=== PATIENT | male | born 1935 | race Caucasian/White ===

== ENCOUNTER 2019-09-06 13:36 | Observation (INO) | payer OTHER ==
[2019-09-06] MEDS ORDERED: ASPIRIN 81 MG CHEWABLE TABLET ONE (14:20)
[2019-09-06] MEDS ORDERED: NA CHLORIDE 0.9% 1,000 ML ONE (14:20)
[2019-09-06 14:47] LABS: Absolute Lymphocytes (CBC) 1.7 K/uL (0.7-4.9); Basophils % 1.1 % (0-1.3); Hematocrit 41.2 % (39.6-49.0); Lymphocytes % 25.4 % (15.3-44.8); MPV 8.5 fL (7.6-11.3); RBC Red Blood Cell Count 4.53 M/uL (4.33-5.43)
[2019-09-06 15:04] LABS: ALT/SGPT 22 U/L (12-78); AST/SGOT 21 U/L (15-37); Albumin 3.7 g/dL (3.4-5.0); Alkaline Phosphatase 91 U/L (45-117); BUN Blood Urea Nitrogen 21 mg/dL (7-18); Bicarbonate 26 mmol/L (21-32); Bilirubin Direct < 0.1 mg/dL (0-0.2); Bilirubin Total 0.2 mg/dL (0.2-1.0); Glucose Level 109 mg/dL (74-106); Lipase 108 U/L (73-393); Magnesium 2.2 mg/dL (1.8-2.4); NT PRO-BNP 160 pg/mL (<450); Protein, Total 7.9 g/dL (6.4-8.2); Sodium Level 142 mmol/L (136-145); Troponin (Emerg Dept Use Only) < 0.02 ng/mL (0.0-0.045)
--- NOTE | 2019-09-06 15:24 | RAD REPORT ---
EXAM DESCRIPTION: Ricardo Single View09/06/2019 2:47 pm CLINICAL HISTORY: Chest pain COMPARISON: May 2019 FINDINGS: The lungs appear clear of acute infiltrate. The heart is normal size IMPRESSION: No acute abnormalities displayed
--- NOTE | 2019-09-06 15:47 | ER ---
Nurse's Notes [facility] Name: Camron Fong Age: 83 yrs Sex: Male : 1935 Arrival Date: 09/06/2019 Time: 13:37 Bed 5 Private MD: Myles Sanches V Diagnosis: Chest pain, unspecified;Essential (primary) hypertension;Unspecified kidney failure-acute on chronic Presentation: 09/05 13:45 Chief complaint: Patient states: I have pressure under my L arm, on my L chest, and my ca1 fingers on my L arm got numb. It started about 30 minutes. Reports lightheadedness. Denies SOB. Denies cough. Denies injury to chest area or L arm. Denies hx of heart attack. Coronavirus screen: Proceed with normal triage. Patient denies a cough. Patient denies shortness of breath or difficulty breathing. Patient denies measured and/or subjective temperature greater than 100.4F prior to today's visit. Patient denies travel on a cruise ship or to a country the [facility] currently lists as an affected area. Patient denies contact with known and/or suspected case of COVID-19. Ebola Screen: Patient negative for fever greater than or equal to 101.5 degrees Fahrenheit, and additional compatible Ebola Virus Disease symptoms Patient denies exposure to infectious person. Patient denies travel to an Ebola-affected area in the 21 days before illness onset. No symptoms or risks identified at this time. Initial Sepsis Screen: Does the patient meet any 2 criteria? No. Patient's initial sepsis screen is negative. Does the patient have a suspected source of infection? No. Patient's initial sepsis screen is negative. Risk Assessment: Do you want to hurt yourself or someone else? Patient reports no desire to harm self or others. Onset of symptoms was September 06, 2019 at 13:00. 13:45 Method Of Arrival: Ambulatory ca1 13:45 Acuity: JESSICA 3 ca1 Triage Assessment: 13:45 General: Appears in no apparent distress. comfortable, Behavior is calm, cooperative, bp appropriate for age. Pain: Complains of pain in chest Pain radiates to left arm. EENT: No deficits noted. Neuro: No deficits noted. Cardiovascular: Rhythm is sinus rhythm. Respiratory: No deficits noted. GI: No signs and/or symptoms were reported involving the gastrointestinal system. : No signs and/or symptoms were reported regarding the genitourinary system. Derm: No deficits noted. Musculoskeletal: No deficits noted. Historical: - Allergies: 13:51 Stadol; ca1 13:51 Lyrica; ca1 13:51 Allopurinol; ca1 - Home Meds: 13:51 [place] Thyroid 90 mg oral tab [Active]; amlodipine 5 mg tab 1 tab once daily [Active]; ca1 losartan 100 mg oral tab 1 tab once daily [Active]; pravastatin 80 mg oral tab 1 tab once daily [Active]; Uloric 80 mg oral tab 1 tab once daily [Active]; hydralazine 25 mg Oral tab [Active]; - PMHx: 13:51 Hypertension; High Cholesterol; Thyroid problem; ca1 - PSHx: 13:51 None; ca1 - Immunization history:: Adult Immunizations up to date. - Social history:: Smoking status: Patient denies any tobacco usage or history of. Smoking status: . - Family history:: not pertinent. Screenin:00 Abuse screen: Denies threats or abuse. Denies injuries from another. Nutritional bp screening: No deficits noted. Tuberculosis screening: No symptoms or risk factors identified. Fall Risk None identified. Assessment: 13:45 General: SEE TRIAGE NOTE. bp 15:00 Reassessment: ALL CURRENT ORDERS COMPLETED, VS STABLE. bp 16:00 Reassessment: IVF INFUSING. ADMIT INITIATED BY . bp 16:51 Reassessment: BED ASSIGNED, ADMIT PENDING. bp 17:01 Reassessment: ADMIT COMPLETE, REPORT TO LEONEL LINDSEY. bp Vital Signs: 13:45 BP 170 / 100; Pulse 74; Resp 15 S; Temp 97.8(TE); Pulse Ox 98% on R/A; Weight 90.72 kg ca1 (R); Height 5 ft. 7 in. (170.18 cm) (R); Pain 2/10; 15:00 BP 151 / 72; Pulse 72; Resp 17; Pulse Ox 97% ; bp 16:00 BP 173 / 77; Pulse 69; Resp 17; Pulse Ox 98% ; bp 16:51 BP 168 / 59; Pulse 50; Resp 17; Pulse Ox 100% ; bp 13:45 Body Mass Index 31.32 (90.72 kg, 170.18 cm) ca1 ED Course: 13:37 Patient arrived in ED. ag5 13:38 Myles Sanches MD is Private Physician. ag5 13:48 Triage completed. ca1 13:51 Tiago Tucker MD is Attending Physician. [facility] 13:51 Arm band placed on right wrist. ca1 14:04 Isaiah Rivas, RN is Primary Nurse. bp 14:30 Inserted saline lock: 22 gauge in right upper arm, using aseptic technique. Blood bp collected. 14:47 XRAY Chest (1 view) In Process Unspecified. EDMS 15:00 Patient has correct armband on for positive identification. Bed in low position. Call bp light in reach. Side rails up X2. ekg monitor tech on. Pulse ox on. NIBP on. 15:45 Myles Sanches MD is Hospitalizing Provider. [facility] 17:02 No provider procedures requiring assistance completed. Patient admitted, IV remains in bp place. Patient maintains SpO2 saturation greater than 95% on room air. Administered Medications: 14:15 Drug: Aspirin Chewable Tablet 324 mg Route: PO; bp 16:07 Follow up: Response: No adverse reaction bp 14:30 Drug: NS 0.9% 1000 ml Route: IV; Rate: 75 ml/hr; Site: right upper arm; bp 17:03 Follow up: IV Status: Infusion continued upon admission bp 16:00 Drug: Lovenox 1 mg/kg Route: Sub-Q; Site: right lower abdomen; bp 17:03 Follow up: Response: No adverse reaction bp 16:00 Drug: Lopressor 25 mg Route: PO; bp 17:03 Follow up: Response: No adverse reaction bp Outcome: 15:47 Decision to Hospitalize by Provider. [facility] 17:02 Admitted to Med/surg accompanied by nurse, via wheelchair, room 207, with chart, Report bp called to LEONEL LINDSEY 17:02 Condition: stable 17:02 Instructed on the need for admit. 17:04 Patient left the ED. bp Signatures: Dispatcher [employer] EDIA Tiago Tucker MD MD cha Peltier, Brian, RN RN bp Nalini Rapp RN RN Renny Esteves ag5
--- NOTE | 2019-09-06 15:48 | EDPHYS ---
Physician Documentation [facility] Name: Camron Fong Age: 83 yrs Sex: Male : 1935 Arrival Date: 09/06/2019 Time: 13:37 Bed 5 Private MD: Myles Sanches V ED Physician Tiago Tucker HPI: 09/05 14:10 This 83 yrs old Male presents to ER via Ambulatory with complaints of Chest krystal Pressure, Chest Tightness. 14:10 The patient or guardian reports chest pain that is located primarily in the substernal krystal area. Onset: 1 hour(s) ago. The pain radiates to. Associated signs and symptoms: The patient has no apparent associated signs or symptoms. The chest pain is described as aching, a pressure. Modifying factors: The symptoms are alleviated by nothing. the symptoms are aggravated by nothing. Severity of pain: At its worst the pain was mild in the emergency department the pain is unchanged. The patient has not experienced similar symptoms in the past. Historical: - Allergies: 13:51 Stadol; ca1 13:51 Lyrica; ca1 13:51 Allopurinol; ca1 - Home Meds: 13:51 [place] Thyroid 90 mg oral tab [Active]; amlodipine 5 mg tab 1 tab once daily [Active]; ca1 losartan 100 mg oral tab 1 tab once daily [Active]; pravastatin 80 mg oral tab 1 tab once daily [Active]; Uloric 80 mg oral tab 1 tab once daily [Active]; hydralazine 25 mg Oral tab [Active]; - PMHx: 13:51 Hypertension; High Cholesterol; Thyroid problem; ca1 - PSHx: 13:51 None; ca1 - Immunization history:: Adult Immunizations up to date. - Social history:: Smoking status: Patient denies any tobacco usage or history of. Smoking status: . - Family history:: not pertinent. ROS: 14:11 Constitutional: Negative for fever, chills, and weight loss, Eyes: Negative for injury, krystal pain, redness, and discharge, ENT: Negative for injury, pain, and discharge, Neck: Negative for injury, pain, and swelling, Respiratory: Negative for shortness of breath, cough, wheezing, and pleuritic chest pain, Abdomen/GI: Negative for abdominal pain, nausea, vomiting, diarrhea, and constipation, Back: Negative for injury and pain, : Negative for injury, bleeding, discharge, and swelling, MS/Extremity: Negative for injury and deformity, Skin: Negative for injury, rash, and discoloration, Neuro: Negative for headache, weakness, numbness, tingling, and seizure, Psych: Negative for depression, anxiety, suicide ideation, homicidal ideation, and hallucinations, Allergy/Immunology: Negative for hives, rash, and allergies, Endocrine: Negative for neck swelling, polydipsia, polyuria, polyphagia, and marked weight changes, Hematologic/Lymphatic: Negative for swollen nodes, abnormal bleeding, and unusual bruising. 14:11 Cardiovascular: Positive for chest pain, palpitations. Exam: 14:11 Constitutional: This is a well developed, well nourished patient who is awake, alert, krystal and in no acute distress. Head/Face: Normocephalic, atraumatic. Eyes: Pupils equal round and reactive to light, extra-ocular motions intact. Lids and lashes normal. Conjunctiva and sclera are non-icteric and not injected. Cornea within normal limits. Periorbital areas with no swelling, redness, or edema. ENT: Nares patent. No nasal discharge, no septal abnormalities noted. Tympanic membranes are normal and external auditory canals are clear. Oropharynx with no redness, swelling, or masses, exudates, or evidence of obstruction, uvula midline. Mucous membranes moist. Neck: Trachea midline, no thyromegaly or masses palpated, and no cervical lymphadenopathy. Supple, full range of motion without nuchal rigidity, or vertebral point tenderness. No Meningismus. Chest/axilla: Normal chest wall appearance and motion. Nontender with no deformity. No lesions are appreciated. Cardiovascular: Regular rate and rhythm with a normal S1 and S2. No gallops, murmurs, or rubs. Normal PMI, no JVD. No pulse deficits. Respiratory: Lungs have equal breath sounds bilaterally, clear to auscultation and percussion. No rales, rhonchi or wheezes noted. No increased work of breathing, no retractions or nasal flaring. Abdomen/GI: Soft, non-tender, with normal bowel sounds. No distension or tympany. No guarding or rebound. No evidence of tenderness throughout. Back: No spinal tenderness. No costovertebral tenderness. Full range of motion. Male : Normal genitalia with no discharge or lesions. Skin: Warm, dry with normal turgor. Normal color with no rashes, no lesions, and no evidence of cellulitis. MS/ Extremity: Pulses equal, no cyanosis. Neurovascular intact. Full, normal range of motion. Neuro: Awake and alert, GCS 15, oriented to person, place, time, and situation. Cranial nerves II-XII grossly intact. Motor strength 5/5 in all extremities. Sensory grossly intact. Cerebellar exam normal. Normal gait. Psych: Awake, alert, with orientation to person, place and time. Behavior, mood, and affect are within normal limits. 14:11 ECG was reviewed by the Attending Physician. Vital Signs: 13:45 BP 170 / 100; Pulse 74; Resp 15 S; Temp 97.8(TE); Pulse Ox 98% on R/A; Weight 90.72 kg ca1 (R); Height 5 ft. 7 in. (170.18 cm) (R); Pain 2/10; 15:00 BP 151 / 72; Pulse 72; Resp 17; Pulse Ox 97% ; bp 16:00 BP 173 / 77; Pulse 69; Resp 17; Pulse Ox 98% ; bp 16:51 BP 168 / 59; Pulse 50; Resp 17; Pulse Ox 100% ; bp 13:45 Body Mass Index 31.32 (90.72 kg, 170.18 cm) ca1 MDM: 13:51 Patient medically screened. [facility] 14:12 Data reviewed: vital signs, nurses notes, lab test result(s), EKG, radiologic studies, krystal plain films. 09/05 13:56 Order name: Basic Metabolic Panel; Complete Time: 15:42 [facility] 09/05 13:56 Order name: CBC with Diff; Complete Time: 15:48 [facility] 09/05 13:56 Order name: LFT's; Complete Time: 15:42 [facility] 09/05 13:56 Order name: Magnesium; Complete Time: 15:42 [facility] 09/05 13:56 Order name: NT PRO-BNP; Complete Time: 15:42 [facility] 09/05 13:56 Order name: Troponin (emerg Dept Use Only); Complete Time: 15:42 [facility] 09/05 13:56 Order name: XRAY Chest (1 view); Complete Time: 15:42 [facility] 09/05 13:56 Order name: Lipase; Complete Time: 15:42 [facility] 09/05 16:28 Order name: Urine Dipstick--Ancillary (enter results) 09/05 16:34 Order name: Urine Dipstick-Ancillary EDSD 09/05 13:56 Order name: EKG; Complete Time: 13:57 [facility] 09/05 13:56 Order name: Cardiac monitoring; Complete Time: 14:08 [facility] 09/05 13:56 Order name: EKG - Nurse/Tech; Complete Time: 14:07 [facility] 09/05 13:56 Order name: IV Saline Lock; Complete Time: 14:34 [facility] 09/05 13:56 Order name: Labs collected and sent; Complete Time: 14:34 [facility] 09/05 13:56 Order name: O2 Per Protocol; Complete Time: 14:06 [facility] 09/05 13:56 Order name: O2 Sat Monitoring; Complete Time: 14:06 [facility] 09/05 15:54 Order name: CONS Physician Consult EDMS EC:11 Rate is 72 beats/min. Rhythm is regular. QRS [place] is Normal. NC interval is prolonged. [facility] QRS interval is normal. QT interval is normal. No Q waves. T waves are Normal. No ST changes noted. Clinical impression: NSR w/ Non-specific ST/T Changes and No evidence of ischemia. Interpreted by me. Reviewed by me. Administered Medications: 14:15 Drug: Aspirin Chewable Tablet 324 mg Route: PO; bp 16:07 Follow up: Response: No adverse reaction bp 14:30 Drug: NS 0.9% 1000 ml Route: IV; Rate: 75 ml/hr; Site: right upper arm; bp 17:03 Follow up: IV Status: Infusion continued upon admission bp 16:00 Drug: Lovenox 1 mg/kg Route: Sub-Q; Site: right lower abdomen; bp 17:03 Follow up: Response: No adverse reaction bp 16:00 Drug: Lopressor 25 mg Route: PO; bp 17:03 Follow up: Response: No adverse reaction bp Disposition: 09/06/19 15:47 Hospitalization ordered by Myles Sanches for Observation. Preliminary diagnosis are Chest pain, unspecified, Essential (primary) hypertension, Unspecified kidney failure - acute on chronic. - Bed requested for Telemetry/MedSurg (observation). - Status is Observation. bp - Condition is Fair. - Problem is new. - Symptoms have improved. Signatures: Dispatcher [employer] EDMS Tiago Tucker MD MD cha Peltier, Brian, RN RN bp Brooke Miles eb Nalini Rapp, RN RN ca1 Corrections: (The following items were deleted from the chart) 16:17 15:47 Hospitalization Ordered by Myles Sanches MD for Observation. Preliminary diagnosis krystal is Chest pain, unspecified; Essential (primary) hypertension. Bed requested for Telemetry/MedSurg (observation). Status is Observation. Condition is Fair. Problem is new. Symptoms have improved. krystal 16:28 16:17 09/06/2019 15:47 Hospitalization Ordered by Myles Sanches MD for Observation. eb Preliminary diagnosis is Chest pain, unspecified; Essential (primary) hypertension; Unspecified kidney failure - acute on chronic. Bed requested for Telemetry/MedSurg (observation). Status is Observation. Condition is Fair. Problem is new. Symptoms have improved. krystal 17:04 16:28 09/06/2019 15:47 Hospitalization Ordered by Myles Sanches MD for Observation. bp Preliminary diagnosis is Chest pain, unspecified; Essential (primary) hypertension; Unspecified kidney failure - acute on chronic. Bed requested for Telemetry/MedSurg (observation). Status is Observation. Condition is Fair. Problem is new. Symptoms have improved. eb
[2019-09-06] MEDS ORDERED: METOPROLOL TAR 25 MG TAB ONE (16:08)
[2019-09-06] MEDS ORDERED: ENOXAPARIN 100 MG/ML SYR SQ ONE (16:08)
[2019-09-06 16:33] LABS: Urine Blood NEGATIVE (NEG); Urine Glucose NEGATIVE (NEG); Urine Protein NEGATIVE (NEG); Urine Specific Gravity 1.015 (1.005-1.030)
[2019-09-06] MEDS ORDERED: ONDANSETRON 4 MG/2 ML VIAL IV PRN (17:15)
[2019-09-06 17:32] VITALS: BMI 31.2
[2019-09-06] MEDS ORDERED: ACETAMINOPHEN 325 MG TABLET PO PRN (17:33)
[2019-09-06] MEDS ORDERED: MORPHINE 2 MG/ML SYR IV PRN (17:46)
[2019-09-06 17:49] VITALS: BP 179/89; TEMP 97.7
[2019-09-06] MEDS ORDERED: METOPROLOL TAR 25 MG TAB PO SCH (18:00)
--- NOTE | 2019-09-06 18:13 | EKG ---
Test Date: 2019-09-06 Test Time: 14:08:19 [employer] Secretary: GAMA MEASUREMENT RESULTS: Intervals: Rate: 72 WA: 214 QRSD: 96 QT: 400 QTc: 438 [place]: P: 84 WA: 214 QRS: 61 T: 80 INTERPRETIVE STATEMENTS: Sinus rhythm with 1st degree AV block Otherwise normal ECG Compared to ECG 08/17/1994 06:32:00 First degree AV block now present T-wave abnormality no longer present Electronically Signed On 09-06-19 18:12:22 CDT by Mendez Jung
[2019-09-06 18:41] VITALS: O2SAT 95
[2019-09-06] MEDS ORDERED: ENOXAPARIN 80 MG/0.8 ML SQ SCH (21:00)
[2019-09-06] MEDS ORDERED: ATORVASTATIN 10 MG TAB PO SCH (21:00)
[2019-09-06] MEDS ORDERED: LOSARTAN POTASSIUM 50 MG TABLET PO SCH (21:00)
[2019-09-06] MEDS ORDERED: FAMOTIDINE 20 MG/2 ML VIAL IV SCH (21:00)
--- NOTE | 2019-09-06 21:35 | P.SSS ---
Patient History Date of Service: 09/06/19 Reason for admission: L ARM PAIN AND TINGLIING History of Present Illness: MR. ALEX IS 83 YEARS OLD GM WITH HTN, GOUT AND HIGH CHOLESTEROL. HE COMES WITH L ARM PAIN AND TINGLING. HE HAS NO CHEST PAIN, NAUSEA, DIAPHORESIS ETC. HE IS PAINFREE NOW AFTER [address] BARAJAS CAME AND DISCHARGED HIM STORY IS WEAK AND HE IS STABLE FOR OUTPATIENT STUDY. I AGREE. I CALLED HIM TALKED TO HIM AND ANTHONY SEEMS VERY COMFORTABLE FOR DISHARGE. HE IS AGREEABLE TO TELEVISIT WITH ME SO HE CAN GO HOME. Allergies allopurinol Allergy (Verified 04/17/17 10:44) Nausea/Vomiting butorphanol [From Stadol] Allergy (Verified 04/17/17 10:44) Shortness of breath pregabalin [From Lyrica] Allergy (Verified 04/17/17 10:44) Hives/Rash Beta-Blockers (Beta-Adrenergic Bloc Adverse Reaction (Verified 09/06/19 17:15) Nausea/Vomiting levothyroxine sodium [From Synthroid] Adverse Reaction (Verified 04/17/17 10:44) Nausea/Vomiting Irmzhjd-Pjl-Fka Reductase Inhibitor Adverse Reaction (Verified 04/17/17 10:44) Nausea/Vomiting zolpidem [From Ambien] Adverse Reaction (Verified 04/17/17 10:44) Nausea/Vomiting Home Medications: Amlodipine [Norvasc*] 5 mg PO DAILY AFTER SUPPER 07/10/15 Febuxostat [Uloric] 80 mg PO DAILY 07/10/15 Pravastatin [Pravachol*] 80 mg PO DAILY 07/10/15 Thyroid Tab [[place] Thyroid*] 90 mg PO IGFOD2QQ 07/10/15 carisoprodoL [Soma*] 350 mg PO BEDTIME 07/10/15 Losartan/Hydrochlorothiazide [Hyzaar 50-12.5 Tablet] 2 each PO DAILY #60 tablet 07/11/15 Hydralazine HCl 25 mg PO BID 04/14/17 Aspirin [[place] Chewable Aspirin] 81 mg PO DAILY 30 Days #30 tab.chew 09/06/19 - Past Medical/Surgical History Has patient received pneumonia vaccine in the past: Yes Diabetic: No -: HTN -: hyperlipidema -: nerve problems in groin from [place] -: hypothyroidism -: gout -: rt knee surg - Family History Mother -: Cancer Father History Unknown: Yes - Social History Smoking Status: Former smoker Alcohol use: No CD- Drugs: No Caffeine use: Yes Place of Residence: Home Review of Systems 10-point ROS is otherwise unremarkable Physical Examination - Vital Signs Temperature: 97.7 F Blood Pressure: 179/89 Pulse: 45 Respirations: 18 Pulse Ox (%): 96 - Physical Exam General: In no apparent distress, Obese Neck: Supple Respiratory: Clear to auscultation bilaterally (PER NURSE) Cardiovascular: Normal S1 S2 (PER NURSE AND TELEM.) Musculoskeletal: No tenderness Integumentary: No rashes Neurological: Normal speech, Normal strength at 5/5 x4 extr Lymphatics: No axilla or inguinal lymphadenopathy - Studies Laboratory Data (last 24 hrs) 09/06/19 14:30: WBC 6.6, Hgb 13.7, Hct 41.2, Plt Count 245 09/06/19 14:30: Sodium 142, Potassium 4.0, BUN 21 H, Creatinine 1.14, Glucose 109 H, Magnesium 2.2, Total Bilirubin 0.2, AST 21, ALT 22, Alkaline Phosphatase 91, Lipase 108 - Diagnosis (Problem(s)) (1) Cervical radiculopathy Status: Acute Plan: MOST LIKELY REASON. HE HAS BEEN TO [facility] AND DID WELL WITH HIS THERAPY. REMOTE POSSIBLITIY THAT HE MAY HAVE ANGINA. HE WILL GET ST TEST DONE. HE HAD A STRESS TEST ABOUT A YEAR AGO THAT WAS NEGATIVE. (2) Coronary artery disease Onset Date: 07/10/15 Status: Acute - Disposition Disposition: ROUTINE DISCHARGE Condition: FAIR
[2019-09-07] MEDS ORDERED: AMLODIPINE 5 MG TAB PO SCH (09:00)
[2019-09-07] MEDS ORDERED: ASPIRIN EC 81 MG TAB PO SCH (09:00)
--- NOTE | 2019-09-07 11:24 | EKG ---
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
--- NOTE | 2019-09-07 11:45 | CON ---
Date of Consultation: 09/06/2019 Reason For Consultation: Chest pain. History Of Present Illness: Mr. Fong is an 83-year-old white male. He is known to me from previ ous office visits. He had a negative cardiac workup approximately a year ago. He does have a histor y of hypertension, dyslipidemia, and hypothyroidism. He came in with pain in his chest, mostly in th e left lateral chest underneath his axilla. Pain has persisted for approximately 2-3 days. It is no nradiating. Has no nausea, vomiting, diaphoresis, PND, orthopnea, pedal edema, palpitations, or sync ope. The pain was not exertional. It was not related to food, body position, or time of the day. H apurva denied any fever or chills or cough. He notes that he has had some spine problems and he sees a iropractor on a regular basis. By the time I saw him, he has already ruled out for an GA. He had no rmal troponin. His EKG was unremarkable. Past Medical History: As stated above. Allergies: BETA-BLOCKERS, ALLOPURINOL, AND GABAPENTIN. Medications: Hyzaar, Norvasc, hydralazine, Soma, pravastatin, and Synthroid. Review of Systems: Negative. Social History: Negative. Family History: Noncontributory. Physical Examination: General: He appeared much younger than his stated age. No acute distress. Vital Signs: Stable, afebrile. HEENT: Negative. Neck: Supple without any bruit, lymphadenopathy, JVD, or thyromegaly. Chest: Clear to auscultation and percussion. Cardiac: Revealed a regular rhythm and rate. No murmurs, gallops, or rubs. Abdomen: Benign. Extremities: Revealed no clubbing, cyanosis, or edema. Diagnostic Data: Unremarkable. Impression And Plan: 1.Atypical chest pain. I think this is most likely related to cervical or thoracic spinal stenosis. It could be musculoskeletal. I do not think this is acute coronary syndrome. I am comfortable wit h Mr. Fong going home and I will see him in the office in the next couple of weeks. The case was discussed with Dr. Sanches. 2.Hypertension, well controlled. 3.Dyslipidemia, well controlled. 4.Hypothyroidism. NB/MODL Voice ID: [id number] Report ID: [id number]
== END 2019-09-06 20:37 | disposition home or self-care (01) ==
LOC: ER 13:36 → ERHOLD 15:50 → 2ND 17:04
PROVIDERS: ADMIT Internal Medicine; ATTEND Internal Medicine
DX: M54.12 Radiculopathy, cervical region (principal); R07.89 Other chest pain; I25.10 Atherosclerotic heart disease of native coronary artery without angina pectoris; I10 Essential (primary) hypertension; E78.00 Pure hypercholesterolemia, unspecified; M10.9 Gout, unspecified; E78.5 Hyperlipidemia, unspecified; E03.9 Hypothyroidism, unspecified; R00.1 Bradycardia, unspecified; I44.0 Atrioventricular block, first degree; R94.31 Abnormal electrocardiogram [ECG] [EKG]; Z79.899 Other long term (current) drug therapy
CPT/HCPCS: 96361; 93005 ×2; 85025; 80048; 36415; 83735; 80076; 81003; 84484; 83690; 83880; 71045; 96360; 96372; 99285; J1650; J7030; G0378 ×2

== ENCOUNTER 2019-09-07 02:20 | Emergency (ER) | payer OTHER ==
[2019-09-07 03:49] LABS: Absolute Lymphocytes (CBC) 1.4 K/uL (0.7-4.9); Basophils % 0.9 % (0-1.3); Hematocrit 41.6 % (39.6-49.0); Lymphocytes % 18.4 % (15.3-44.8); MPV 8.6 fL (7.6-11.3); RBC Red Blood Cell Count 4.61 M/uL (4.33-5.43)
[2019-09-07 03:50] LABS: Protime INR 0.97
[2019-09-07 04:10] LABS: ALT/SGPT 23 U/L (12-78); AST/SGOT 21 U/L (15-37); Albumin 3.7 g/dL (3.4-5.0); Alkaline Phosphatase 76 U/L (45-117); BUN Blood Urea Nitrogen 19 mg/dL (7-18); Bicarbonate 29 mmol/L (21-32); Bilirubin Direct 0.1 mg/dL (0-0.2); Bilirubin Total 0.4 mg/dL (0.2-1.0); Glucose Level 93 mg/dL (74-106); Magnesium 2.2 mg/dL (1.8-2.4); NT PRO-BNP 259 pg/mL (<450); Potassium 4.2 mmol/L (3.5-5.1); Protein, Total 7.9 g/dL (6.4-8.2); Sodium Level 140 mmol/L (136-145); Troponin (Emerg Dept Use Only) < 0.02 ng/mL (0.0-0.045)
--- NOTE | 2019-09-07 05:29 | ER ---
Nurse's Notes [facility] Name: Camron Fong Age: 83 yrs Sex: Male : 1935 Arrival Date: 09/07/2019 Time: 02:21 Bed 16 Private MD: Diagnosis: Hypertension;Bradycardia-Asymptomatic Presentation: 09/06 02:43 Chief complaint: Patient states: Was in the hospital yesterday and discharge home with ao medication. Patient was given Beta chance and now C/O low HR and high BP. 02:44 Coronavirus screen: Proceed with normal triage. Ebola Screen: Patient negative for ao fever greater than or equal to 101.5 degrees Fahrenheit, and additional compatible Ebola Virus Disease symptoms Patient denies exposure to infectious person. Patient denies travel to an Ebola-affected area in the 21 days before illness onset. Initial Sepsis Screen: Does the patient meet any 2 criteria? No. Patient's initial sepsis screen is negative. Does the patient have a suspected source of infection? No. Patient's initial sepsis screen is negative. Risk Assessment: Do you want to hurt yourself or someone else? Patient reports no desire to harm self or others. Onset of symptoms is unknown. 02:44 Acuity: JESSICA 3 ao 02:44 Method Of Arrival: Ambulatory ao Historical: - Allergies: 04:23 Allopurinol; ao 04:23 Lyrica; ao 04:23 Stadol; ao - Home Meds: 04:23 amlodipine 5 mg tab 1 tab once daily [Active]; [place] Thyroid 90 mg Oral tab [Active]; ao hydralazine 25 mg Oral tab [Active]; losartan 100 mg Oral tab 1 tab once daily [Active]; pravastatin 80 mg Oral tab 1 tab once daily [Active]; Uloric 80 mg Oral tab 1 tab once daily [Active]; - PMHx: 04:23 High Cholesterol; Hypertension; Thyroid problem; ao - PSHx: 04:23 None; ao - Immunization history:: Adult Immunizations up to date. - Social history:: Smoking status: Patient/guardian denies using tobacco. Screenin:26 Abuse screen: Denies threats or abuse. Denies injuries from another. Nutritional ao screening: No deficits noted. Tuberculosis screening: No symptoms or risk factors identified. Fall Risk None identified. Assessment: 03:15 General: Appears in no apparent distress. comfortable, slender, well groomed, well ao developed, well nourished, Behavior is calm, cooperative, appropriate for age. Pain: Denies pain. Pain does not radiate. Pain began suddenly. Neuro: Level of Consciousness is awake, alert, obeys commands, Oriented to person, place, time, situation, Appropriate for age Moves all extremities. Full function Speech is normal, Facial symmetry appears normal. Cardiovascular: Capillary refill < 3 seconds Patient's skin is warm and dry. Cardiovascular: Reports since Low HR and High BP. Respiratory: Airway is patent Respiratory effort is even, unlabored, Respiratory pattern is regular, symmetrical. GI: Abdomen is non-distended. : No signs and/or symptoms were reported regarding the genitourinary system. EENT: No signs and/or symptoms were reported regarding the EENT system. Derm: Skin is intact, Skin is pink, warm \T\ dry. Skin temperature is warm. 05:54 Reassessment: DC instructions given to patient. Patient agree with POC and to follow up ao with PCP and cardio. Patient and had no questions. Vital Signs: 02:43 BP 169 / 70; Pulse 46; Resp 16; Temp 98.2(TE); Pulse Ox 97% on R/A; Weight 88.9 kg (R); ao Height 5 ft. 4 in. (162.56 cm) (R); Pain 0/10; 04:18 BP 151 / 65; Pulse 47; Resp 16; Pulse Ox 98% on R/A; ao 05:54 BP 146 / 62; Pulse 51; Resp 16; Temp 98.2; Pulse Ox 99% on R/A; Pain 0/10; ao 02:43 Body Mass Index 33.64 (88.90 kg, 162.56 cm) ao ED Course: 02:21 Patient arrived in ED. ds1 02:38 Anurag Rice MD is Attending Physician. mh7 02:39 Chuy Hall, ROSALIA is Primary Nurse. ao 02:45 Triage completed. ao 03:21 XRAY Chest (1 view) In Process Unspecified. EDMS 03:55 Inserted saline lock: 20 gauge in left antecubital area, using aseptic technique. Blood ao collected. 04:26 Patient maintains SpO2 saturation greater than 95% on room air. ao 04:26 Arm band placed on right wrist. ao 04:26 Patient has correct armband on for positive identification. ekg monitor tech on. Pulse ao ox on. NIBP on. 05:53 No provider procedures requiring assistance completed. IV discontinued, intact, ao bleeding controlled, No redness/swelling at site. Pressure dressing applied. Administered Medications: No medications were administered Outcome: 05:29 Discharge ordered by . mh7 05:53 Discharged to home ambulatory. ao 05:53 Condition: stable 05:53 Discharge instructions given to patient, reinsurance analyst, Instructed on discharge instructions, follow up and referral plans. Demonstrated understanding of instructions, follow-up care, medications. 05:55 Patient left the ED. ao Signatures: Dispatcher [employer] EDAL Hailey Gong ds1 Chuy Hall, ROSALIA RN Anurag Betancourt MD MD mh7
--- NOTE | 2019-09-07 05:29 | EDPHYS ---
Physician Documentation [facility] Name: Camron Fong Age: 83 yrs Sex: Male : 1935 Arrival Date: 09/07/2019 Time: 02:21 Bed 16 Private MD: ED Physician Anurag Rice HPI: 09/06 03:40 This 83 yrs old Male presents to ER via Ambulatory with complaints of mh7 Irregular Pulse, High Blood Pressure. 03:40 The patient has elevated blood pressure and discovered this at home, with a home mh7 device. Onset: The symptoms/episode began/occurred today. Modifying factors: The symptoms are aggravated by nothing, The symptoms are alleviated by nothing. Associated signs and symptoms: Pertinent negatives: chest pain, dizziness, dyspnea, headache, lightheadedness, nausea, visual changes, vomiting, weakness. Severity of symptoms: At its worst the blood pressure was 200 mm Hg, in the emergency department the blood pressure is improved, markedly. The patient has been recently been admitted at [facility], was discharged yesterday. Historical: - Allergies: 04:23 Allopurinol; ao 04:23 Lyrica; ao 04:23 Stadol; ao - Home Meds: 04:23 amlodipine 5 mg tab 1 tab once daily [Active]; [place] Thyroid 90 mg Oral tab [Active]; ao hydralazine 25 mg Oral tab [Active]; losartan 100 mg Oral tab 1 tab once daily [Active]; pravastatin 80 mg Oral tab 1 tab once daily [Active]; Uloric 80 mg Oral tab 1 tab once daily [Active]; - PMHx: 04:23 High Cholesterol; Hypertension; Thyroid problem; ao - PSHx: 04:23 None; ao - Immunization history:: Adult Immunizations up to date. - Social history:: Smoking status: Patient/guardian denies using tobacco. ROS: 03:40 Constitutional: Negative for fever, chills, and weight loss, Eyes: Negative for injury, mh7 pain, redness, and discharge, ENT: Negative for injury, pain, and discharge, Neck: Negative for injury, pain, and swelling, Cardiovascular: Negative for chest pain, palpitations, and edema, Respiratory: Negative for shortness of breath, cough, wheezing, and pleuritic chest pain, Abdomen/GI: Negative for abdominal pain, nausea, vomiting, diarrhea, and constipation, Back: Negative for injury and pain, : Negative for injury, bleeding, discharge, and swelling, MS/Extremity: Negative for injury and deformity, Skin: Negative for injury, rash, and discoloration, Neuro: Negative for headache, weakness, numbness, tingling, and seizure, Psych: Negative for depression, anxiety, suicide ideation, homicidal ideation, and hallucinations, Allergy/Immunology: Negative for hives, rash, and allergies, Endocrine: Negative for neck swelling, polydipsia, polyuria, polyphagia, and marked weight changes, Hematologic/Lymphatic: Negative for swollen nodes, abnormal bleeding, and unusual bruising. Exam: 03:40 Constitutional: This is a well developed, well nourished patient who is awake, alert, mh7 and in no acute distress. Head/Face: Normocephalic, atraumatic. Eyes: Pupils equal round and reactive to light, extra-ocular motions intact. Lids and lashes normal. Conjunctiva and sclera are non-icteric and not injected. Cornea within normal limits. Periorbital areas with no swelling, redness, or edema. ENT: Nares patent. No nasal discharge, no septal abnormalities noted. Tympanic membranes are normal and external auditory canals are clear. Oropharynx with no redness, swelling, or masses, exudates, or evidence of obstruction, uvula midline. Mucous membranes moist. Neck: Trachea midline, no thyromegaly or masses palpated, and no cervical lymphadenopathy. Supple, full range of motion without nuchal rigidity, or vertebral point tenderness. No Meningismus. Chest/axilla: Normal chest wall appearance and motion. Nontender with no deformity. No lesions are appreciated. Cardiovascular: Regular rate and rhythm with a normal S1 and S2. No gallops, murmurs, or rubs. Normal PMI, no JVD. No pulse deficits. Respiratory: Lungs have equal breath sounds bilaterally, clear to auscultation and percussion. No rales, rhonchi or wheezes noted. No increased work of breathing, no retractions or nasal flaring. Abdomen/GI: Soft, non-tender, with normal bowel sounds. No distension or tympany. No guarding or rebound. No evidence of tenderness throughout. Back: No spinal tenderness. No costovertebral tenderness. Full range of motion. Skin: Warm, dry with normal turgor. Normal color with no rashes, no lesions, and no evidence of cellulitis. MS/ Extremity: Pulses equal, no cyanosis. Neurovascular intact. Full, normal range of motion. Neuro: Awake and alert, GCS 15, oriented to person, place, time, and situation. Cranial nerves II-XII grossly intact. Motor strength 5/5 in all extremities. Sensory grossly intact. Cerebellar exam normal. Normal gait. Psych: Awake, alert, with orientation to person, place and time. Behavior, mood, and affect are within normal limits. 06:12 ECG was reviewed by the Attending Physician. [facility] Vital Signs: 02:43 BP 169 / 70; Pulse 46; Resp 16; Temp 98.2(TE); Pulse Ox 97% on R/A; Weight 88.9 kg (R); ao Height 5 ft. 4 in. (162.56 cm) (R); Pain 0/10; 04:18 BP 151 / 65; Pulse 47; Resp 16; Pulse Ox 98% on R/A; ao 05:54 BP 146 / 62; Pulse 51; Resp 16; Temp 98.2; Pulse Ox 99% on R/A; Pain 0/10; ao 02:43 Body Mass Index 33.64 (88.90 kg, 162.56 cm) ao MDM: 03:07 Patient medically screened. [facility] 05:27 Differential diagnosis: hypertensive crisis, Malignant HTN, Bradycardia. Data reviewed: [facility] vital signs, nurses notes, old medical records, lab test result(s), cardiac enzymes, CBC, electrolytes, urinalysis, EKG, radiologic studies, plain films. Data interpreted: Pulse oximetry: on room air is 98 %. Interpretation: normal. Counseling: I had a detailed discussion with the patient and/or guardian regarding: the historical points, exam findings, and any diagnostic results supporting the discharge/admit diagnosis, the presence of at least one elevated blood pressure reading (>120/80) during this emergency department visit, lab results, radiology results, the need for outpatient follow up, to return to the emergency department if symptoms worsen or persist or if there are any questions or concerns that arise at home. Response to treatment: the patient's symptoms have markedly improved after treatment. 06:12 ED course: Well appearing, NAD, VSS, no focal neurological deficits. No chest pain, mh7 SOB, nausea, vomiting, dizziness, or other complaints. Discussed all test results and findings with the patient answered all of his questions. He requested to be discharged from the ED. He will follow up with his doctor but agreed to return to the ED if worsening of symptoms or other concerns.. 09/06 03:09 Order name: Basic Metabolic Panel; Complete Time: 04:16 09/06 03:09 Order name: CBC with Diff; Complete Time: 04:16 09/06 03:09 Order name: LFT's; Complete Time: 04:16 09/06 03:09 Order name: Magnesium; Complete Time: 04:16 09/06 03:09 Order name: NT PRO-BNP; Complete Time: 04:16 09/06 03:09 Order name: PT-INR; Complete Time: 04:16 09/06 03:09 Order name: Troponin (emerg Dept Use Only); Complete Time: 04:16 09/06 03:09 Order name: XRAY Chest (1 view) 09/06 03:09 Order name: EKG; Complete Time: 03:09 09/06 03:09 Order name: Cardiac monitoring; Complete Time: 04:18 09/06 03:09 Order name: EKG - Nurse/Tech; Complete Time: 04:18 09/06 03:09 Order name: IV Saline Lock; Complete Time: 04:18 09/06 03:09 Order name: Labs collected and sent; Complete Time: 04:18 09/06 03:09 Order name: O2 Per Protocol; Complete Time: 04:18 09/06 03:09 Order name: O2 Sat Monitoring; Complete Time: 04:18 EC:12 Rate is 45 beats/min. Rhythm is regular, Sinus bradycardia. QRS Basco is Normal. CT mh7 interval is normal. QRS interval is normal. QT interval is normal. No Q waves. T waves are Normal. No ST changes noted. Clinical impression: Sinus bradycardia. Administered Medications: No medications were administered Disposition: 09/07/19 05:29 Discharged to Home. Impression: Hypertension, Bradycardia-Asymptomatic. - Condition is Stable. - Discharge Instructions: Bradycardia, Adult, Hypertension, [id number]. - Medication Reconciliation Form, Thank You Letter, Antibiotic Education, Prescription Opioid Use form. - Follow up: Private Physician; When: 1 - 2 days; Reason: Worsening of condition, Recheck today's complaints, Re-evaluation by your physician. - Problem is an ongoing problem. - Symptoms have improved. Signatures: Dispatcher [employer] Chuy Medel RN RN ao Holmes, Maurice, MD MD mh7 Corrections: (The following items were deleted from the chart) 05:55 05:29 09/07/2019 05:29 Discharged to Home. Impression: Hypertension; ao Bradycardia-Asymptomatic. Condition is Stable. Forms are Medication Reconciliation Form, Thank You Letter, Antibiotic Education, Prescription Opioid Use. Follow up: Private Physician; When: 1 - 2 days; Reason: Worsening of condition, Recheck today's complaints, Re-evaluation by your physician. Problem is an ongoing problem. Symptoms have improved. mh7
[2019-09-07 06:05] VITALS: TEMP 98.2
[2019-09-07 06:08] VITALS: BP 146/62; O2SAT 99
--- NOTE | 2019-09-07 11:07 | RAD REPORT ---
EXAM DESCRIPTION: RAD - Chest Single View - 09/07/2019 3:21 am CLINICAL HISTORY: Hypertension Chest pain. COMPARISON: Chest Single View dated 09/06/2019; Chest Pa And Lat (2 Views) dated 05/29/2019; Chest Pa And Lat (2 Views) dated 01/03/2019; Chest Pa And Lat (2 Views) dated 07/10/2015 FINDINGS: Portable technique limits examination quality. The lungs are grossly clear. The heart is normal in size. No displaced fractures. IMPRESSION: No acute intrathoracic process suspected.
--- NOTE | 2019-09-07 11:24 | EKG ---
Test Date: 2019-09-07 Test Time: 04:00:48 Sausage Maker: AMOR MEASUREMENT RESULTS: Intervals: Rate: 45 NC: 198 QRSD: 108 QT: 486 QTc: 420 [place]: P: 79 NC: 198 QRS: 44 T: 75 INTERPRETIVE STATEMENTS: Marked sinus bradycardia Abnormal ECG Compared to ECG 09/07/2019 04:00:08 First degree AV block no longer present Myocardial infarct finding no longer present Electronically Signed On 09-07-19 11:23:07 CDT by Mendez Jung
== END 2019-09-07 05:55 | disposition home or self-care (01) ==
LOC: ER 02:20
DX: I10 Essential (primary) hypertension (principal); R00.1 Bradycardia, unspecified; E78.00 Pure hypercholesterolemia, unspecified; E07.9 Disorder of thyroid, unspecified; Z88.5 Allergy status to narcotic agent; Z88.8 Allergy status to other drugs, medicaments and biological substances
CPT/HCPCS: 36415; 71045; 80048; 80076; 83735; 83880; 84484; 85025; 85610; 93005; 99285

== ENCOUNTER 2021-09-17 09:08 | Day surgery (SDC) | payer OTHER ==
[2021-09-17 09:05] LABS: Absolute Lymphocytes (CBC) 1.8 K/uL (0.7-4.9); Hematocrit 40.5 % (39.6-49.0); Lymphocytes % 26.2 % (15.3-44.8); MPV 8.1 fL (7.6-11.3); RBC Red Blood Cell Count 4.45 M/uL (4.33-5.43)
[2021-09-17 09:16] LABS: Potassium 5.2 mmol/L (3.5-5.1)
[2021-09-17] MEDS ORDERED: Ringers Lactate 1,000 ML IV ONE (09:40)
[2021-09-17] MEDS ORDERED: CEFAZOLIN SODIUM 1 GM/VIAL ONE (09:40)
[2021-09-17] MEDS ORDERED: propofoL 200 MG/20 ML VIAL IV ONE (10:49)
[2021-09-17] MEDS ORDERED: FENTANYL CITR 100 MCG/2 ML ONE (10:49)
[2021-09-17] MEDS ORDERED: LIDOCAINE 2% MPF 5 ML VIAL ONE (10:49)
[2021-09-17] MEDS ORDERED: GLYCOPYRROLATE 0.2 MG/ML SYR ONE ×2 (11:42)
[2021-09-17] MEDS: BUPIVACA 0.5%/EPI 0.0005%/PF 30 ML VIAL ONE ×2 (11:49→12:32)
[2021-09-17] MEDS ORDERED: KETOROLAC 30 MG/ML INJ ONE (11:52)
[2021-09-17] MEDS ORDERED: ONDANSETRON 4 MG/2 ML VIAL ONE (13:01)
[2021-09-17 13:23] VITALS: O2SAT 96
[2021-09-17 13:46] VITALS: BP 176/71; TEMP 96.6
--- NOTE | 2021-09-17 20:25 | OP ---
Date of Procedure: 09/17/2021 Surgeon: Gerber Coats MD Preoperative Diagnosis: Left knee pain with mechanical symptoms including a locked knee as well as s ignificant degenerative joint disease. 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 2.Near complete tear of anterior cruciate ligament. 3.Fairly large notch osteophytes. 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 5.Two loose bodies. 6.Mild fraying of the medial meniscus. 7.Complex displaceable tear throughout the entire lateral meniscus with definite unstable flaps, bot h anterior posteriorly and along its body. Procedures: 1.Left knee arthroscopy with removal of 2 intraarticular loose bodies. 2.Debridement of very complex unstable lateral meniscal tear. Estimated Blood Loss: 10 cc. Complications: There were no complications. Specimens: One of the loose bodies was sent to Pathology. The other one was removed using the shave r. Indications: Mr. Fong is a patient, who I had not seen before, who came to my office as he was b ent over and turning and he felt his knee locked. Since that time, he was unable to straighten his k nee. He had very significant difficulty walking, but by the time he saw me, which was only shortly t hereafter, he was able to use a walker with his knee bent. Any attempt to straighten his knee causes significant pain and he says that it is definitely locked. He does have good knee flexion, but does have loss of extension. Risks, benefits, and alternatives of different methods of treating this hav e been discussed with he and his family, which included observation to see whether or not this would spontaneously unlock. Also discussed possibility of arthroscopic intervention to remove any loose allen dies or meniscal fragments, which could be blocking the knee extension and the next is total knee art hroplasty. On review of his history, he says that he really has not had a lock before and it really does not bother him that much up until now. He is not considering total knee arthroplasty. I did di scuss that we could continue to watch it and see whether or not it would unlock; however, walking aga in from an obstruction would be unpredictable. He and his family discussed this and at this time, I offered arthroscopic intervention for removal of any obstructions or problems, which could be causing a locked knee. He was told that with the arthritis that he has that this could recur because the so urce of the problem is probably from the vast degenerative changes of his knee. He says he understan ds things as presented and wishes to proceed. Description Of Procedure: The patient was taken to the operating room and placed in supine position. General anesthesia was obtained by the staff. Following this, a well-padded tourniquet was placed on superior left thigh. Left lower extremity was then prepped and draped in the usual sterile fashio n. It should be noted that after the prepping and draping, when the patient was asleep and the knee was able to extend that he is now able to perform full range of motion of his knee without sign of me chanical block. However, I believe this is most likely from a spontaneous reduction of whatever was causing the obstruction. I did discuss with him that if it did unlock, would he like us to cease or continue on and he said he would like for us to find the probable source to address this so we procee ded. After this a standard superomedial arthroscopy portal was then performed with liberation of jannette roximately 10 cc of rather normal-appearing synovial fluid. This was followed by placement of an inf erolateral portal then placed atraumatically with 1 pass. It was then examined including suprapatell ar pouch, the medial and lateral gutters, the medial and lateral compartments as well as the notch an d patellofemoral joint. Pertinent findings included grade 4 chondromalacia of the medial compartment with some mild fraying of the medial meniscus. Also seen was a very large notch osteophyte with sig nificant degeneration of the ACL. There may be a few intact fibers. There was grade 2 chondromalaci a of patellofemoral joint. The lateral compartment was then inspected. It was found to have a very large, basically torn throughout lateral meniscus. There did appear to be unstable flaps. Also seen is a loose body posteriorly there. Additional investigation of the lateral gutter demonstrates what appears to be a loose body there as well. Decision was made to move forward with the overall arthro scopic debridement in hopes that the loose body seen in the lateral gutter would be able to repositio n itself and be more amenable to direct removal. Therefore, a medial arthroscopy portal was then ward shayla to use as a working portal. There was some debridement of the fat pad to see if there are any lo ose bodies, which could be found there. Very light debridement of the medial meniscus and then atten tion was then turned to the lateral meniscus. It is essentially torn throughout and a combination of hand instruments as well as a shaver was then used to debride this back to a firm, stable, well cont oured base. It should be noted that there were still tears in this area being most consistent with h orizontal tears. It was probed in its entirety to see whether or not we could move anything within t he joint space. There did appear to be an area of the anterior horn, which was displaced well and th is was also debrided. Following this, the notch osteophyte was investigated to ensure that this was not mobile and it definitely was consistent with a stable osteophyte. Debriding the lateral side, yo u cannot see posteriorly because of the fairly large ability to maneuver the scope and there was an o steophyte, which was seen posteriorly. Slightly bending the knee and pushing very gently on the post erior aspect of the knee, brings this where it can be grasped with a grasper. This was then removed and sent to Pathology. The search for the lateral loose body then commenced investing all above area s and at first, this could not be identified. However, with agitation and knee flexion and extension , this was able to be brought up into visualization. It appeared to be partially enmeshed in the syn ovium and could not be brought easily to amenable accessible area. A needle was then placed for loca lization and care was taken to make sure that the incision was anterior to the biceps femoris tendon and carefully through skin only. This was followed by placement of a probe, which is placed more or less directly on the loose body. Attempts were made to gently move this loose body anteriorly so it would be more amenable to removal; however, it still was enmeshed. Decision was made to move forward with a relatively larger shaver. This was placed on the loose body and did appear to be amenable to shaving. This was then shaved and we were able to remove this using the shaver. After this, the en tire knee was again examined in all of the above areas. No further pathology is seen, which is direc tly amenable to arthroscopic intervention. All of the arthroscopy portals were then stapled shut wit h the exception of superomedial arthroscopy portal, which was then used for placement of Marcaine and epinephrine. This was then stapled. The patient was placed in a well-padded sterile dressing, awakened, and taken to recovery r oom in good condition. /KATHY Voice ID: [id number] Report ID: [id number]
== END 2021-09-17 13:39 | disposition home or self-care (01) ==
LOC: OR 09:08
PROVIDERS: ATTEND Orthopaedic Surgery
PROC: 0SBD4ZZ Excision of Left Knee Joint, Percutaneous Endoscopic Approach (ICD-10-PCS; principal; 2021-09-17 11:30)
DX: S83.272A Complex tear of lateral meniscus, current injury, left knee, initial encounter (principal); M25.562 Pain in left knee; M17.12 Unilateral primary osteoarthritis, left knee; M22.42 Chondromalacia patellae, left knee; M23.42 Loose body in knee, left knee; M25.762 Osteophyte, left knee
CPT/HCPCS: 29882; 85025; 80048; 36415; 88300; J2704; J3010; J7120; J2405; J0690

== ENCOUNTER 2023-02-05 07:57 | Observation (INO) | payer OTHER ==
--- OUTSIDE RECORDS SUMMARY | 2023-02-05 08:01 | XMS REPORT | Continuity of Care Document ---
:1935 Author Organization [facility] t Address [address] [place] [address] [place] [id number] Care Team Providers Name Role Phone Myles Sanches Attending Clinician Unavailable Pilar Attending Clinician Unavailable Vincent Benitez Attending Clinician Unavailable Arely Trevino Attending Clinician Unavailable Pilar Admitting Clinician Unavailable Arely Trevino Admitting Clinician Unavailable KNOW, DOES_NOT Admitting Clinician Unavailable Payers Payer Name Policy Type Policy Number Effective Date Expiration Date Alyssa OJEDA (MEDICARE [id number] 2021 REPLACEMENT PPO) 00:00:00 Problems Condition Condition Condition Status Onset Resolution Last Treating Co mments Source Name Details Category Date Date Treatment Clinician Date History of History of Problem Active Clifford marmolejo 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:00: 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 00 Spor ts hip joint Hip Joint Medi leroy e Aftercare Aftercare Problem Active 2021-03 Rupert moffett 2-14 [facility] 00:00: dic 00 [facility] 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 marmolejo itis of itis of 0-10 [facility] left knee Left Knee 00:00: dic joint Joint 00 Sports Medicin e Pain of Pain of Problem Active 2021-03 Leyla left knee Left Knee 0-06 [facility] joint Joint 00:00: dic 00 Sports Medicin e Knee pain Knee Pain Problem Active Aza betina 4-11 [facility] 00:00: dic 00 Sports Medicin [facility] Knee joint 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 1-27 [facility] 00:00: dic 00 Sports Medicin e 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 2-20 Or [facility]ope t t 00:00: dic 00 Sports Medicin e Osteoarthr Osteoarthr Problem Active 2012-03 A jaleel itis of itis of 12 [facility] knee Knee 00:00: dic 00 Sports Medicin e Allergies, Adverse Reactions, Alerts Allergy Allergy Status Severity Reaction(s) Onset Inactive Treating Comm ents Source Name Type Date Date Clinician juanorphclifford DA Active [facility] ANAPHYLAXIS 2021-03 [facility] [place] pregabal DA Active [facility] TINGLING OF 2021-03 [facility] HEAD[facility]NECK 04[facility]11 [facility] [place] butorpha DA Active [facility] ANAPHYLAXIS 2012-03 [facility] 04[facility]19 [place] [facility] preg[facility]al DA Active [facility] TINGLING OF 2012-03 [facility] 04[facility] [place] [facility] STADOL Allergy Active 2012-03 [facility] to 1-11 [facility] substanc 00:00: dic e 00 Sports Medicin e Lyrica Allergy Active 2012-03 [facility] to 1-11 [facility] substanc 00:00: dic e 00 Sports Medicin e Social History Smoking Status Start Date Stop Date Source Former Smoker [facility] Medications Ordered Filled Start Stop Current Ordering Indication Dosage Frequency Signature Comments Components Source Medication Medication Date Date Medication? Clinician (SIG) Name Name Mobic 15 mg Mobic 15 mg No Mobic 15 [facility] tablet take tablet take 4-11 mg tablet [facility] 1 tablet 1 tablet 00:00: take 1 dic one time a one time a 00 tablet one Sports day with day with time a day M edicin food for food for with food e 7days 7days for 7days Mobic 15 mg Mobic 15 mg No Mobic 15 [facility] tablet take tablet take 4-11 mg tablet [facility] 1 tablet 1 tablet 00:00: take 1 dic one time a one time a 00 tablet one Sports day with day with time a day M edicin food for food for with food e 7days 7days for 7days Mobic 15 mg Mobic 15 mg No Mobic 15 [facility] tablet take tablet take 4-11 mg tablet [facility] 1 tablet 1 tablet 00:00: take 1 dic one time a one time a 00 tablet one Sports day with day with time a day M edicin food for food for with food e 7days 7days for 7days Mobic 15 mg Mobic 15 mg No Mobic 15 [facility] tablet take tablet take 4-11 mg tablet [facility] 1 tablet 1 tablet 00:00: take 1 dic one time a one time a 00 tablet one Sports day with day with time a day M edicin food for food for with food e 7days 7days for 7days Mobic 15 mg Mobic 15 mg No Mobic 15 [facility] tablet take tablet take 4-11 mg tablet [facility] 1 tablet 1 tablet 00:00: take 1 dic one time a one time a tablet one Sports day with day with time a day M edicin food for food for with food e 7days 7days for 7days Jamieson 7.5 Jamieson 7.5 No Jamieson 7.5 [facility] mg-325 mg mg-325 mg 1-10 mg-325 mg [facility] tablet take tablet take 00:00: tablet dic one tablet one tablet 00 take one Sports every 6 hrs every 6 hrs tablet Medicin prn pain prn pain every 6 e hrs prn pain Jamieson 7.5 Jamieson 7.5 No Jamieson 7.5 [facility]yla mg-325 mg mg-325 mg 1-10 mg-325 mg [facility] tablet take tablet take 00:00: tablet dic one tablet one tablet 00 take one Sports every 6 hrs every 6 hrs tablet Medicin prn pain prn pain every 6 e hrs prn pain Jamieson 7.5 Jamieson 7.5 No Jamieson 7.5 [facility]yla mg-325 mg mg-325 mg 1-10 mg-325 mg [facility] tablet take tablet take 00:00: tablet dic one tablet one tablet 00 take one Sports every 6 hrs every 6 hrs tablet Medicin prn pain prn pain every 6 e hrs prn pain Jamieson 7.5 Jamieson 7.5 No Jamieson 7.5 [facility]yla mg-325 mg mg-325 mg 1-10 mg-325 mg [facility] tablet take tablet take 00:00: tablet dic one tablet one tablet 00 take one Sports every 6 hrs every 6 hrs tablet Medicin prn pain prn pain every 6 e hrs prn pain Jamieson 7.5 Jamieson 7.5 No Jamieson 7.5 Leyla mg-325 mg mg-325 mg 1-10 mg-325 mg [facility] tablet take tablet take 00:00: tablet dic one tablet one tablet 00 take one Sports every 6 hrs every 6 hrs tablet Medicin prn pain prn pain every 6 e hrs prn pain Jamieson 10 Jamieson 10 2012-03 No Jamieson 10 A zalea mg-325 mg mg-325 mg 2-20 mg-325 mg [facility] tablet 1 to tablet 1 to 00:00: tablet 1 dic 2 tablets 2 tablets 00 to 2 Sport s every 4 to every 4 to tablets Medicin 6 hours as 6 hours as every 4 to e needed for needed for 6 hours as pain pain needed for pain Jamieson 10 Jamieson 10 2012-03 No Jamieson 10 A zalea mg-325 mg mg-325 mg 2-20 mg-325 mg [facility] tablet 1 to tablet 1 to 00:00: tablet 1 dic 2 tablets 2 tablets 00 to 2 Sport s every 4 to every 4 to tablets Medicin 6 hours as 6 hours as every 4 to e needed for needed for 6 hours as pain pain needed for pain Robaxin-750 Robaxin-750 2012-03 No Robaxin-75 [facility] 750 mg 750 mg 2-13 0 750 mg [facility] tablet 1 tablet 1 00:00: tablet 1 d ic tab po qid tab po qid 00 tab po qid Sports prn prn prn Medicin pain/spasms pain/spasms pain/spasm e s Robaxin-750 Robaxin-750 2012-03 No Robaxin-75 [facility]yla 750 mg 750 mg 2-13 0 750 mg [facility] tablet 1 tablet 1 00:00: tablet 1 d ic tab po qid tab po qid 00 tab po qid Sports prn prn prn Medicin pain/spasms pain/spasms pain/spasm e s Robaxin-750 Robaxin-750 2012-03 No Robaxin-75 Leyla 750 mg 750 mg 2-13 0 750 mg [facility] tablet 1 tablet 1 00:00: tablet 1 d ic tab po qid tab po qid 00 tab po qid Sports prn prn prn Medicin pain/spasms pain/spasms pain/spasm e s Robaxin-750 Robaxin-750 2012-03 No Robaxin-75 Leyla 750 mg 750 mg 2-13 0 750 mg [facility] tablet 1 tablet 1 00:00: tablet 1 d ic tab po qid tab po qid 00 tab po qid Sports prn prn prn Medicin pain/spasms pain/spasms pain/spasm e s Robaxin-750 Robaxin-750 2012-03 No Robaxin-75 Leyla 750 mg 750 mg 2-13 0 750 mg [facility] tablet 1 tablet 1 00:00: tablet 1 d ic tab po qid tab po qid 00 tab po qid Sports prn prn prn Medicin pain/spasms pain/spasms pain/spasm e s Ultram 50 Ultram 50 2012-03 No Ultram 50 [facility] mg tablet mg tablet 2-11 mg tablet [facility] take 2 tabs take 2 tabs 00:00: take 2 dic po q4-6h po q4-6h 00 tabs po Spor ts prn pain prn pain q4-6h prn Me dicin pain e Ultram 50 Ultram 50 2012-03 No Ultram 50 [facility] mg tablet mg tablet 2-11 mg tablet [facility] take 2 tabs take 2 tabs 00:00: take 2 dic po q4-6h po q4-6h 00 tabs po Spor ts prn pain prn pain q4-6h prn Me dicin pain e pravastatin pravastatin 2012-03 No pravastati [facility] 80 mg 80 mg 1-11 n 80 mg [facility] tablet RX tablet RX 00:00: tablet RX dic by other MD by other 00 by other Sports MD Kayla mixon Uloric 80 Uloric 80 2012-03 No Uloric 80 Leyla mg tablet mg tablet 1-11 mg tablet [facility] RX by other RX by other 00:00: RX by elio ALEXANDER MD 00 other MD Ronnie mixon amlodipine amlodipine 2012-03 No amlodipine [facility]yla 5 mg tablet 5 mg tablet 1-11 5 mg O [facility] RX by other RX by other 00:00: tablet RX elio ALEXANDER MD 00 by other Sports MD Kayla mixon pravastatin pravastatin 2012-03 No pravastati Leyla 80 mg 80 mg 1-11 n 80 mg [facility] tablet RX tablet RX 00:00: tablet RX dic by other MD by other 00 by other Sports MD Kayla mixon Uloric 80 Uloric 80 2012-03 No Uloric 80 Lelya mg tablet mg tablet 1-11 mg tablet [facility] RX by other RX by other 00:00: RX by elio ALEXANDER MD 00 other MD Ronnie mixon amlodipine amlodipine 2012-03 No amlodipine Leyla 5 mg tablet 5 mg tablet 1-11 5 mg O [facility] RX by other RX by other 00:00: tablet RX elio ALEXANDER MD 00 by other Sports MD Kayla mixon pravastatin pravastatin 2012-03 No pravastati [facility]yla 80 mg 80 mg 1-11 n 80 mg [facility] tablet RX tablet RX 00:00: tablet RX dic by other MD by other 00 by other Sports MD Kayla mixon Uloric 80 Uloric 80 2012-03 No Uloric 80 Leyla mg tablet mg tablet 1-11 mg tablet [facility] RX by other RX by other 00:00: RX by elio ALEXANDER MD 00 other MD Ronnie mixon amlodipine amlodipine 2012-03 No amlodipine Leyla 5 mg tablet 5 mg tablet 1-11 5 mg O [facility] RX by other RX by other 00:00: tablet RX elio ALEXANDER MD 00 by other Sports MD Kayla mixon pravastatin pravastatin 2012-03 No pravastati Leyla 80 mg 80 mg 1-11 n 80 mg [facility] tablet RX tablet RX 00:00: tablet RX dic by other MD by other 00 by other Sports MD Kayla mixon Uloric 80 Uloric 80 2012-03 No Uloric 80 Leyla mg tablet mg tablet 1-11 mg tablet [facility] RX by other RX by other 00:00: RX by elio ALEXANDER MD 00 other MD Ronnie mixon amlodipine amlodipine 2012-03 No amlodipine Leyla 5 mg tablet 5 mg tablet 1-11 5 mg [facility] RX by other RX by other 00:00: tablet RX elio ALEXANDER MD 00 by other Sports MD Kayla mixon pravastatin pravastatin 2012-03 No pravastati [facility]yla 80 mg 80 mg 1-11 n 80 mg [facility] tablet RX tablet RX 00:00: tablet RX dic by other MD by abida ALEXANDER 00 by other Ronnie mixon Uloric 80 Uloric 80 2012-03 No Uloric 80 Leyla mg tablet mg tablet 1-11 mg tablet [facility] RX by other RX by other 00:00: RX by elio ALEXANDER MD abida Henriquez amlodipine amlodipine 2012-03 No amlodipine [facility]yla 5 mg tablet 5 mg tablet 1-11 5 mg [facility] RX by other RX by other 00:00: tablet RX elio ALEXANDER MD 00 by other Ronnie mixon nystatin nystatin No nystatin Aza betina 100,000 100,000 100,000 [facility] e unit/gram unit/gram unit/gram dic topical topical topical Sports powder powder powder Medicin APPLY UP TO APPLY UP TO APPLY UP e THREE TIMES THREE TIMES TO THREE DAILY TO DAILY TO TIMES RASH IN RASH IN DAILY TO GROIN AREA GROIN AREA RASH IN GROIN AREA ondansetron ondansetron No 1 BID ondansetro [facility]yla 8 mg 8 mg n 8 mg [facility] disintegrat disintegrat disintegra dic ing tablet ing tablet ting Spo rts Place 1 Place 1 tablet Medicin tablet tablet Place 1 e twice a day twice a day tablet by by twice a translingua translingua day by l route as l route as translingu needed for needed for al route nausea. nausea. as needed for nausea. polyethylen polyethylen No polyethyle [facility]yla e glycol e glycol ne glycol Or [facility] 3350 17 3350 17 3350 17 dic gram/dose gram/dose gram/dose Sports oral powder oral powder oral M edicin take 17g by take 17g by powder e mouth twice mouth twice take 17g a day as a day as by mouth needed for needed for twice a constipatio constipatio day as n n needed for constipati on spironolact spironolact No spironolac Leyla one 50 mg one 50 mg tone 50 mg [facility] tablet TAKE tablet TAKE tablet dic 1 TABLET BY 1 TABLET BY TAKE 1 Sports MOUTH EVERY MOUTH EVERY TABLET BY Medicin DAY DAY MOUTH e EVERY DAY tramadol 50 tramadol 50 No tramadol [facility]yla mg tablet mg tablet 50 mg Orth ope Take 1 Take 1 tablet dic tablet tablet Take 1 Sports every 6 every 6 tablet Medicin hours by hours by every 6 e oral route oral route hours by as needed as needed oral route for mild to for mild to as needed moderate moderate for mild (2-7/10) (2-7/10) to pain. pain. moderate (2-7/10) pain. triamcinolo triamcinolo No triamcinol [facility] ne ne one [facility] acetonide acetonide acetonide dic 0.1 % 0.1 % 0.1 % Sports topical topical topical Medici n cream APPLY cream APPLY cream e TWICE DAILY TWICE DAILY APPLY TO CHEST TO CHEST TWICE NEEDED NEEDED DAILY TO CHEST NEEDED acetaminoph acetaminoph No acetaminop Leyla en 300 en 300 hen 300 [facility] mg-codeine mg-codeine mg-codeine dic 30 mg 30 mg 30 mg Sports tablet TAKE tablet TAKE tablet Medicin 1 TABLET BY 1 TABLET BY TAKE 1 e MOUTH EVERY MOUTH EVERY TABLET BY 6 HOURS 6 HOURS MOUTH NEEDED NEEDED EVERY 6 HOURS NEEDED Manquin Manquin No Manquin Leyla Thyroid 90 Thyroid 90 Thyroid 90 [facility] mg tablet mg tablet mg tablet dic TAKE 1 TAKE 1 TAKE 1 Sports TABLET BY TABLET BY TABLET BY Medicin MOUTH EVERY MOUTH EVERY MOUTH e DAY DAY EVERY DAY aspirin 81 aspirin 81 No aspirin 81 [facility] mg mg mg [facility] tablet,parag tablet,parag tablet,del dic yed release yed release ayed S ports TAKE 1 TAKE 1 release Medicin TABLET BY TABLET BY TAKE 1 e MOUTH TWICE MOUTH TWICE TABLET BY A DAY A DAY MOUTH TWICE A DAY clonidine clonidine No clonidine [facility] HCl 0.1 mg HCl 0.1 mg HCl 0.1 mg [facility] tablet tablet tablet dic PLEASE SEE PLEASE SEE PLEASE SEE Sports ATTACHED ATTACHED ATTACHED Med icin FOR FOR FOR e DETAILED DETAILED DETAILED DIRECTIONS DIRECTIONS DIRECTIONS gabapentin gabapentin No gabapentin Leyla 100 mg 100 mg 100 mg [facility] capsule capsule capsule dic TAKE 1 TAKE 1 TAKE 1 Sports CAPSULE BY CAPSULE BY CAPSULE BY Medicin MOUTH MOUTH MOUTH e EVERYDAY AT EVERYDAY AT EVERYDAY BEDTIME BEDTIME AT BEDTIME hydralazine hydralazine No hydralazin [facility] 50 mg 50 mg e 50 mg [facility] tablet TAKE tablet TAKE tablet dic 1 TABLET BY 1 TABLET BY TAKE 1 Sports MOUTH TWICE MOUTH TWICE TABLET BY Medicin A DAY A DAY MOUTH e TWICE A DAY hydrocodone hydrocodone No hydrocodon [facility]yla 10 10 e 10 [facility] mg-acetamin mg-acetamin mg-acetami dic ophen 325 ophen 325 nophen 325 Sports mg tablet mg tablet mg tablet Medicin TAKE 1 TAKE 1 TAKE 1 e TABLET TABLET TABLET EVERY 6 EVERY 6 EVERY 6 HOURS BY HOURS BY HOURS BY ORAL ROUTE ORAL ROUTE ORAL ROUTE NEEDED NEEDED NEEDED FOR SEVERE FOR SEVERE FOR SEVERE BREAKTHROUG BREAKTHROUG BREAKTHROU H PAIN. H PAIN. GH PAIN. ketoconazol ketoconazol No ketoconazo [facility]yla e 2 % e 2 % le 2 % [facility] topical topical topical dic cream APPLY cream APPLY cream Sports TO RASH ON TO RASH ON APPLY TO Medicin GROIN AREA GROIN AREA RASH ON e TWICE A DAY TWICE A DAY GROIN AREA TWICE A DAY lorazepam lorazepam No lorazepam [facility] 0.5 mg 0.5 mg 0.5 mg [facility] tablet TAKE tablet TAKE tablet dic ONE TABLET ONE TABLET TAKE ONE Sports BY MOUTH AT BY MOUTH AT TABLET BY Medicin BEDTIME BEDTIME MOUTH AT e NEEDED FOR NEEDED FOR BEDTIME INSOMNIA INSOMNIA NEEDED FOR INSOMNIA meloxicam meloxicam No meloxicam [facility] 7.5 mg 7.5 mg 7.5 mg [facility] tablet Take tablet Take tablet dic 1 tablet 1 tablet Take 1 Sport s twice a day twice a day tablet Medicin by oral by oral twice a e route for route for day by inflammatio inflammatio oral route n/swelling n/swelling for for 30 for 30 inflammati days. days. on/swellin g for 30 days. methocarbam methocarbam No methocarba [facility]yla ol 500 mg ol 500 mg mol 500 mg [facility] tablet TAKE tablet TAKE tablet dic 1 TABLET 4 1 TABLET 4 TAKE 1 S ports TIMES A DAY TIMES A DAY TABLET 4 Medicin BY ORAL BY ORAL TIMES A e ROUTE ROUTE DAY BY NEEDED FOR NEEDED FOR ORAL ROUTE MUSCLE MUSCLE NEEDED SPASMS AND SPASMS AND FOR MUSCLE CRAMPS. CRAMPS. SPASMS AND CRAMPS. nystatin nystatin No nystatin Aza betina 100,000 100,000 100,000 [facility] e unit/gram unit/gram unit/gram dic topical topical topical Sports powder powder powder Medicin APPLY UP TO APPLY UP TO APPLY UP e THREE TIMES THREE TIMES TO THREE DAILY TO DAILY TO TIMES RASH IN RASH IN DAILY TO GROIN AREA GROIN AREA RASH IN GROIN AREA ondansetron ondansetron No ondansetro [facility] 8 mg 8 mg n 8 mg [facility] disintegrat disintegrat disintegra dic ing tablet ing tablet ting Spo rts PLACE [address] PL[address] Medicin TABLET TABLET PL[address] 1 e UNDER THE UNDER THE TABLET TONGUE TONGUE UNDER THE TWICE A DAY TWICE A DAY TONGUE NEEDED NEEDED TWICE A FOR NAUSEA. FOR NAUSEA. DAY NEEDED FOR NAUSEA. polyethylen polyethylen No polyethyle [facility] e glycol e glycol ne glycol [facility] 3350 17 3350 17 3350 17 dic gram/dose gram/dose gram/dose Sports oral powder oral powder oral M edicin TAKE 17G BY TAKE 17G BY powder e MOUTH TWICE MOUTH TWICE TAKE 17G A DAY A DAY BY MOUTH NEEDED FOR NEEDED FOR TWICE A CONSTIPATIO CONSTIPATIO DAY N N NEEDED FOR CONSTIPATI ON spironolact spironolact No spironolac [facility]yla one 50 mg one 50 mg tone 50 mg [facility] tablet TAKE tablet TAKE tablet dic 1 TABLET BY 1 TABLET BY TAKE 1 Sports MOUTH EVERY MOUTH EVERY TABLET BY Medicin DAY DAY MOUTH e EVERY DAY tramadol 50 tramadol 50 No tramadol [facility] mg tablet mg tablet 50 mg Orth [facility]pe Take 1 Take 1 tablet dic tablet tablet Take 1 Sports every 6 every 6 tablet Medicin hours by hours by every 6 e oral route oral route hours by as needed as needed oral route for mild to for mild to as needed moderate moderate for mild (2-7/10) (2-7/10) to pain. pain. moderate (2-7/10) pain. triamcinolo triamcinolo No triamcinol [facility] ne ne one [facility] acetonide acetonide acetonide dic 0.1 % 0.1 % 0.1 % Sports topical topical topical Medici n cream APPLY cream APPLY cream e TWICE DAILY TWICE DAILY APPLY TO CHEST TO CHEST TWICE NEEDED NEEDED DAILY TO CHEST NEEDED acetaminoph acetaminoph No acetaminop [facility]yla en 300 en 300 hen 300 [facility] mg-codeine mg-codeine mg-codeine dic 30 mg 30 mg 30 mg Sports tablet TAKE tablet TAKE tablet Medicin 1 TABLET BY 1 TABLET BY TAKE 1 e MOUTH EVERY MOUTH EVERY TABLET BY 6 HOURS 6 HOURS MOUTH NEEDED NEEDED EVERY 6 HOURS NEEDED amoxicillin amoxicillin No amoxicilli [facility] 500 mg 500 mg n 500 mg [facility] capsule capsule capsule dic TAKE 4 TAKE 4 TAKE 4 Sports CAPSULES BY CAPSULES BY CAPSULES Medicin MOUTH I MOUTH I BY MOUTH I e HOUR PRIOR HOUR PRIOR HOUR PRIOR TO DENTAL TO DENTAL TO DENTAL APPOINTMENT APPOINTMENT APPOINTMEN T Manquin Manquin No Manquin [facility] Thyroid 90 Thyroid 90 Thyroid 90 [facility] mg tablet mg tablet mg tablet dic TAKE 1 TAKE 1 TAKE 1 Sports TABLET BY TABLET BY TABLET BY Medicin MOUTH EVERY MOUTH EVERY MOUTH e DAY DAY EVERY DAY aspirin 81 aspirin 81 No aspirin 81 [facility] mg mg mg [facility] tablet,parag tablet,parag tablet,del dic yed release yed release ayed S ports TAKE 1 TAKE 1 release Medicin TABLET BY TABLET BY TAKE 1 e MOUTH TWICE MOUTH TWICE TABLET BY A DAY A DAY MOUTH TWICE A DAY clonidine clonidine No clonidine [facility] HCl 0.1 mg HCl 0.1 mg HCl 0.1 mg [facility] tablet tablet tablet dic PLEASE SEE PLEASE SEE PLEASE SEE Sports ATTACHED ATTACHED ATTACHED Med icin FOR FOR FOR e DETAILED DETAILED DETAILED DIRECTIONS DIRECTIONS DIRECTIONS gabapentin gabapentin No gabapentin [facility] 100 mg 100 mg 100 mg [facility] capsule capsule capsule dic TAKE 1 TAKE 1 TAKE 1 Sports CAPSULE BY CAPSULE BY CAPSULE BY Medicin MOUTH MOUTH MOUTH e EVERYDAY AT EVERYDAY AT EVERYDAY BEDTIME BEDTIME AT BEDTIME gabapentin gabapentin No gabapentin [facility]yla 300 mg 300 mg 300 mg [facility] capsule capsule capsule dic TAKE 1 TAKE 1 TAKE 1 Sports CAPSULE BY CAPSULE BY CAPSULE BY Medicin MOUTH MOUTH MOUTH e EVERYDAY AT EVERYDAY AT EVERYDAY BEDTIME BEDTIME AT BEDTIME hydralazine hydralazine No hydralazin [facility] 50 mg 50 mg e 50 mg [facility] tablet TAKE tablet TAKE tablet dic 1 TABLET BY 1 TABLET BY TAKE 1 Sports MOUTH TWICE MOUTH TWICE TABLET BY Medicin A DAY A DAY MOUTH e TWICE A DAY hydrochloro hydrochloro No hydrochlor [facility]yla thiazide thiazide othiazide Or [facility] 12.5 mg 12.5 mg 12.5 mg dic tablet TAKE tablet TAKE tablet Sports 1 TABLET BY 1 TABLET BY TAKE 1 Medicin MOUTH EVERY MOUTH EVERY TABLET BY e DAY DAY MOUTH EVERY DAY hydrocodone hydrocodone No hydrocodon [facility]yla 10 10 e 10 [facility] mg-acetamin mg-acetamin mg-acetami dic ophen 325 ophen 325 nophen 325 Sports mg tablet mg tablet mg tablet Medicin TAKE 1 TAKE 1 TAKE 1 e TABLET TABLET TABLET EVERY 6 EVERY 6 EVERY 6 HOURS BY HOURS BY HOURS BY ORAL ROUTE ORAL ROUTE ORAL ROUTE NEEDED NEEDED NEEDED FOR SEVERE FOR SEVERE FOR SEVERE BREAKTHROUG BREAKTHROUG BREAKTHROU H PAIN. H PAIN. GH PAIN. ketoconazol ketoconazol No ketoconazo [facility]yla e 2 % e 2 % le 2 % [facility] topical topical topical dic cream APPLY cream APPLY cream Sports TO RASH ON TO RASH ON APPLY TO Medicin GROIN AREA GROIN AREA RASH ON e TWICE A DAY TWICE A DAY GROIN AREA TWICE A DAY lorazepam lorazepam No lorazepam [facility] 0.5 mg 0.5 mg 0.5 mg [facility] tablet TAKE tablet TAKE tablet dic ONE TABLET ONE TABLET TAKE ONE Sports BY MOUTH AT BY MOUTH AT TABLET BY Medicin BEDTIME BEDTIME MOUTH AT e NEEDED FOR NEEDED FOR BEDTIME INSOMNIA INSOMNIA NEEDED FOR INSOMNIA meloxicam meloxicam No meloxicam [facility] 7.5 mg 7.5 mg 7.5 mg [facility] tablet Take tablet Take tablet dic 1 tablet 1 tablet Take 1 Sport s twice a day twice a day tablet Medicin by oral by oral twice a e route for route for day by inflammatio inflammatio oral route n/swelling n/swelling for for 30 for 30 inflammati days. days. on/swellin g for 30 days. methocarbam methocarbam No methocarba [facility] ol 500 mg ol 500 mg mol 500 mg [facility] tablet TAKE tablet TAKE tablet dic 1 TABLET 4 1 TABLET 4 TAKE 1 S ports TIMES A DAY TIMES A DAY TABLET 4 Medicin BY ORAL BY ORAL TIMES A e ROUTE ROUTE DAY BY NEEDED FOR NEEDED FOR ORAL ROUTE MUSCLE MUSCLE NEEDED SPASMS AND SPASMS AND FOR MUSCLE CRAMPS. CRAMPS. SPASMS AND CRAMPS. nystatin nystatin No nystatin Aza betina 100,000 100,000 100,000 [facility] e unit/gram unit/gram unit/gram dic topical topical topical Sports powder powder powder Medicin APPLY UP TO APPLY UP TO APPLY UP e THREE TIMES THREE TIMES TO THREE DAILY TO DAILY TO TIMES RASH IN RASH IN DAILY TO GROIN AREA GROIN AREA RASH IN GROIN AREA ondansetron ondansetron No ondansetro [facility] 8 mg 8 mg n 8 mg [facility] disintegrat disintegrat disintegra dic ing tablet ing tablet ting Spo rts PLACE [address] PL[address] 1 tablet Medicin TABLET TABLET PLACE 1 e UNDER THE UNDER THE TABLET TONGUE TONGUE UNDER THE TWICE A DAY TWICE A DAY TONGUE NEEDED NEEDED TWICE A FOR NAUSEA. FOR NAUSEA. DAY NEEDED FOR NAUSEA. polyethylen polyethylen No polyethyle [facility]yla e glycol e glycol ne glycol Or [facility]ope 3350 17 3350 17 3350 17 dic gram/dose gram/dose gram/dose Sports oral powder oral powder oral M edicin TAKE 17G BY TAKE 17G BY powder e MOUTH TWICE MOUTH TWICE TAKE 17G A DAY A DAY BY MOUTH NEEDED FOR NEEDED FOR TWICE A CONSTIPATIO CONSTIPATIO DAY N N NEEDED FOR CONSTIPATI ON spironolact spironolact No spironolac Leyla one 50 mg one 50 mg tone 50 mg [facility] tablet TAKE tablet TAKE tablet dic 1 TABLET BY 1 TABLET BY TAKE 1 Sports MOUTH EVERY MOUTH EVERY TABLET BY Medicin DAY DAY MOUTH e EVERY DAY tramadol 50 tramadol 50 No tramadol [facility] mg tablet mg tablet 50 mg Orth [facility]pe Take 1 Take 1 tablet dic tablet tablet Take 1 Sports every 6 every 6 tablet Medicin hours by hours by every 6 e oral route oral route hours by as needed as needed oral route for mild to for mild to as needed moderate moderate for mild (2-7/10) (2-7/10) to pain. pain. moderate (2-7/10) pain. triamcinolo triamcinolo No triamcinol [facility] ne ne one [facility] acetonide acetonide acetonide dic 0.1 % 0.1 % 0.1 % Sports topical topical topical Medici n cream APPLY cream APPLY cream e TWICE DAILY TWICE DAILY APPLY TO CHEST TO CHEST TWICE NEEDED NEEDED DAILY TO CHEST NEEDED acetaminoph acetaminoph No acetaminop Leyla en 300 en 300 hen 300 [facility] mg-codeine mg-codeine mg-codeine dic 30 mg 30 mg 30 mg Sports tablet TAKE tablet TAKE tablet Medicin 1 TABLET BY 1 TABLET BY TAKE 1 e MOUTH EVERY MOUTH EVERY TABLET BY 6 HOURS 6 HOURS MOUTH NEEDED NEEDED EVERY 6 HOURS NEEDED Manquin Manquin No Manquin [facility] Thyroid 90 Thyroid 90 Thyroid 90 [facility] mg tablet mg tablet mg tablet dic TAKE 1 TAKE 1 TAKE 1 Sports TABLET BY TABLET BY TABLET BY Medicin MOUTH EVERY MOUTH EVERY MOUTH e DAY DAY EVERY DAY clonidine clonidine No clonidine [facility] HCl 0.1 mg HCl 0.1 mg HCl 0.1 mg [facility] tablet tablet tablet dic PLEASE SEE PLEASE SEE PLEASE SEE Sports ATTACHED ATTACHED ATTACHED Med icin FOR FOR FOR e DETAILED DETAILED DETAILED DIRECTIONS DIRECTIONS DIRECTIONS hydralazine hydralazine No hydralazin Leyla 50 mg 50 mg e 50 mg [facility] tablet TAKE tablet TAKE tablet dic 1 TABLET BY 1 TABLET BY TAKE 1 Sports MOUTH TWICE MOUTH TWICE TABLET BY Medicin A DAY A DAY MOUTH e TWICE A DAY spironolact spironolact No spironolac Leyla one 50 mg one 50 mg tone 50 mg [facility] tablet TAKE tablet TAKE tablet dic 1 TABLET BY 1 TABLET BY TAKE 1 Sports MOUTH EVERY MOUTH EVERY TABLET BY Medicin DAY DAY MOUTH e EVERY DAY triamcinolo triamcinolo No triamcinol Leyla ne ne one [facility] acetonide acetonide acetonide dic 0.1 % 0.1 % 0.1 % Sports topical topical topical Medici n cream APPLY cream APPLY cream e TWICE DAILY TWICE DAILY APPLY TO CHEST TO CHEST TWICE NEEDED NEEDED DAILY TO CHEST NEEDED acetaminoph acetaminoph No acetaminop Leyla en 300 en 300 hen 300 [facility] mg-codeine mg-codeine mg-codeine dic 30 mg 30 mg 30 mg Sports tablet TAKE tablet TAKE tablet Medicin 1 TABLET BY 1 TABLET BY TAKE 1 e MOUTH EVERY MOUTH EVERY TABLET BY 6 HOURS 6 HOURS MOUTH NEEDED NEEDED EVERY 6 HOURS NEEDED Manquin Manquin No Manquin Leyla Thyroid 90 Thyroid 90 Thyroid 90 [facility] mg tablet mg tablet mg tablet dic TAKE 1 TAKE 1 TAKE 1 Sports TABLET BY TABLET BY TABLET BY Medicin MOUTH EVERY MOUTH EVERY MOUTH e DAY DAY EVERY DAY clonidine clonidine No clonidine Leyla HCl 0.1 mg HCl 0.1 mg HCl 0.1 mg [facility] tablet tablet tablet dic PLEASE SEE PLEASE SEE PLEASE SEE Sports [facility] DETAILED DETAILED DETAILED DIRECTIONS DIRECTIONS DIRECTIONS gabapentin gabapentin No gabapentin Leyla 100 mg 100 mg 100 mg [facility] capsule capsule capsule dic TAKE 1 TAKE 1 TAKE 1 Sports CAPSULE BY CAPSULE BY CAPSULE BY Medicin MOUTH MOUTH MOUTH e EVERYDAY AT EVERYDAY AT EVERYDAY BEDTIME BEDTIME AT BEDTIME hydralazine hydralazine No hydralazin Leyla 50 mg 50 mg e 50 mg [facility] tablet TAKE tablet TAKE tablet dic 1 TABLET BY 1 TABLET BY TAKE 1 Sports MOUTH TWICE MOUTH TWICE TABLET BY Medicin A DAY A DAY MOUTH e TWICE A DAY ketoconazol ketoconazol No ketoconazo Leyla e 2 % e 2 % le 2 % [facility] topical topical topical dic cream APPLY cream APPLY cream Sports TO RASH ON TO RASH ON APPLY TO Medicin GROIN AREA GROIN AREA RASH ON e TWICE A DAY TWICE A DAY GROIN AREA TWICE A DAY lorazepam lorazepam No lorazepam [facility] 0.5 mg 0.5 mg 0.5 mg [facility] tablet TAKE tablet TAKE tablet dic ONE TABLET ONE TABLET TAKE ONE Sports BY MOUTH AT BY MOUTH AT TABLET BY Medicin BEDTIME BEDTIME MOUTH AT e NEEDED FOR NEEDED FOR BEDTIME INSOMNIA INSOMNIA NEEDED FOR INSOMNIA nystatin nystatin No nystatin Aza betina 100,000 100,000 100,000 Orth[facility] e unit/gram unit/gram unit/gram dic topical topical topical Sports powder powder powder Medicin APPLY UP TO APPLY UP TO APPLY UP e THREE TIMES THREE TIMES TO THREE DAILY TO DAILY TO TIMES RASH IN RASH IN DAILY TO GROIN AREA GROIN AREA RASH IN GROIN AREA spironolact spironolact No spironolac Leyla one 50 mg one 50 mg tone 50 mg [facility] tablet TAKE tablet TAKE tablet dic 1 TABLET BY 1 TABLET BY TAKE 1 Sports MOUTH EVERY MOUTH EVERY TABLET BY Medicin DAY DAY MOUTH e EVERY DAY triamcinolo triamcinolo No triamcinol Leyla ne ne one [facility] acetonide acetonide acetonide dic 0.1 % 0.1 % 0.1 % Sports topical topical topical Medici n cream APPLY cream APPLY cream e TWICE DAILY TWICE DAILY APPLY TO CHEST TO CHEST TWICE NEEDED NEEDED DAILY TO CHEST NEEDED acetaminoph acetaminoph No acetaminop Leyla en 300 en 300 hen 300 [facility] mg-codeine mg-codeine mg-codeine dic 30 mg 30 mg 30 mg Sports tablet TAKE tablet TAKE tablet Medicin 1 TABLET BY 1 TABLET BY TAKE 1 e MOUTH EVERY MOUTH EVERY TABLET BY 6 HOURS 6 HOURS MOUTH NEEDED NEEDED EVERY 6 HOURS NEEDED Manquin Manquin No Manquin Leyla Thyroid 90 Thyroid 90 Thyroid 90 [facility] mg tablet mg tablet mg tablet dic TAKE 1 TAKE 1 TAKE 1 Sports TABLET BY TABLET BY TABLET BY Medicin MOUTH EVERY MOUTH EVERY MOUTH e DAY DAY EVERY DAY aspirin 81 aspirin 81 No 1 BID aspirin 81 Leyla mg mg mg [facility] tablet,parag tablet,parag tablet,del dic yed release yed release ayed S ports Take 1 Take 1 release Medicin tablet tablet Take 1 e twice a day twice a day tablet by oral by oral twice a route. route. day by oral route. clonidine clonidine No clonidine Leyla HCl 0.1 mg HCl 0.1 mg HCl 0.1 mg [facility] tablet tablet tablet dic PLEASE SEE PLEASE SEE PLEASE SEE Sports ATTACHED ATTACHED ATTACHED Med icin FOR FOR FOR e DETAILED DETAILED DETAILED DIRECTIONS DIRECTIONS DIRECTIONS gabapentin gabapentin No gabapentin Leyla 100 mg 100 mg 100 mg [facility] capsule capsule capsule dic TAKE 1 TAKE 1 TAKE 1 Sports CAPSULE BY CAPSULE BY CAPSULE BY Medicin MOUTH MOUTH MOUTH e EVERYDAY AT EVERYDAY AT EVERYDAY BEDTIME BEDTIME AT BEDTIME hydralazine hydralazine No hydralazin Leyla 50 mg 50 mg e 50 mg [facility] tablet TAKE tablet TAKE tablet dic 1 TABLET BY 1 TABLET BY TAKE 1 Sports MOUTH TWICE MOUTH TWICE TABLET BY Medicin A DAY A DAY MOUTH e TWICE A DAY hydrocodone hydrocodone No 1 Q6H hydrocodon Leyla 10 10 e 10 [facility] mg-acetamin mg-acetamin mg-acetami dic ophen 325 ophen 325 nophen 325 Sports mg tablet mg tablet mg tablet Medicin Take 1 Take 1 Take 1 e tablet tablet tablet every 6 every 6 every 6 hours by hours by hours by oral route oral route oral route as needed as needed as needed for severe for severe for severe breakthroug breakthroug breakthrou h pain. h pain. gh pain. ketoconazol ketoconazol No ketoconazo Leyla e 2 % e 2 % le 2 % [facility] topical topical topical dic cream APPLY cream APPLY cream Sports TO RASH ON TO RASH ON APPLY TO Medicin GROIN AREA GROIN AREA RASH ON e TWICE A DAY TWICE A DAY GROIN AREA TWICE A DAY lorazepam lorazepam No lorazepam Leyla 0.5 mg 0.5 mg 0.5 mg [facility] tablet TAKE tablet TAKE tablet dic ONE TABLET ONE TABLET TAKE ONE Sports BY MOUTH AT BY MOUTH AT TABLET BY Medicin BEDTIME BEDTIME MOUTH AT e NEEDED FOR NEEDED FOR BEDTIME INSOMNIA INSOMNIA NEEDED FOR INSOMNIA meloxicam meloxicam No meloxicam Leyla 7.5 mg 7.5 mg 7.5 mg [facility] tablet Take tablet Take tablet dic 1 tablet 1 tablet Take 1 Sport s twice a day twice a day tablet Medicin by oral by oral twice a e route for route for day by inflammatio inflammatio oral route n/swelling n/swelling for for 30 for 30 inflammati days. days. on/swellin g for 30 days. methocarbam methocarbam No 1 QID methocarba Leyla ol 500 mg ol 500 mg mol 500 mg [facility] tablet Take tablet Take tablet dic 1 tablet 4 1 tablet 4 Take 1 S ports times a day times a day tablet 4 Medicin by oral by oral times a e route as route as day by needed for needed for oral route muscle muscle as needed spasms and spasms and for muscle cramps. for cramps. for spasms and muscle muscle cramps. spasms and spasms and for muscle tightness tightness spasms and tightness Vital Signs Vital Name Observation Time Observation Value Comments Source Height 2022-05-31 00:00:00 66 [in_i] [facility] BMI (Body Mass 2022-05-31 00:00:00 29.1 kg/m2 [facility]) Sports Medicine Body Weight 2022-05-31 00:00:00 180 [lb_av] [facility] Height 2022-03-17 00:00:00 66 [in_i] [facility] BMI (Body Mass 2022-03-17 00:00:00 29.1 kg/m2 [facility] Index) Sports Medicine Body Weight 2022-03-17 00:00:00 180 [lb_av] [facility] Height 2022-02-09 00:00:00 66 [in_i] [facility] BMI (Body Mass 2022-02-09 00:00:00 29.1 kg/m2 [facility] Index) Sports Medicine Body Weight 2022-02-09 00:00:00 180 [lb_av] [facility] Height 2021-12-20 00:00:00 66 [in_i] [facility] BMI (Body Mass 2021-12-20 00:00:00 29.1 kg/m2 [facility]) Sports Medicine Body Weight 2021-12-20 00:00:00 180 [lb_av] [facility] Procedures Procedure Date / Time Performing Clinician Source Performed XR, knee, 3 view 2022-05-31 00:00:00 [facility] XR, knee, 4 or more 2022-02-09 00:00:00 [facility] view Sports Medicine Knee Replacement [facility] Knee Surgery [facility] Encounters Start End Encounter Admission Attending Care Care Encounter Source Date/Time Date/Time Type Type Clinicians Facility Department ID 2021-09-21 Outpatient Verónica, [facility] [id number] Common 14:52:00 Myles [facility] 2021-09-16 Outpatient Verónica [facility] [id number] Common 09:24:00 Myles [id number] [facility] 2021-09-15 Outpatient [facility] [id number] Common 09:47:00 [facility] 2023-01-02 2023-01-02 Outpatient FOG_Goytia_ AOSM AOSM [id number] Leyla 00:00:00 00:00:00 Neeraj [id number] [facility] 2022-10-25 2022-10-25 Outpatient FOG_Goytia_ AOSM AOSM [id number] Leyla 00:00:00 00:00:00 Neeraj [id number] [facility] 2022-10-25 2022-10-25 Outpatient FOG_Goytia_ AOSM AOSM [id number] Leyla 00:00:00 00:00:00 Neeraj [id number] [facility] 2022-10-25 2022-10-25 Outpatient FOG_Goytia_ AOSM AOSM [id number] Leyla 00:00:00 00:00:00 Neeraj [id number] [facility] 2022-09-30 2022-09-30 Outpatient FOG_Goytia_ AOSM AOSM [id number] Leyla 00:00:00 00:00:00 Neeraj [id number] [facility] e 2022-09-30 2022-09-30 Outpatient FOG_Goytia_ AOSM AOSM [id number] Leyla 00:00:00 00:00:00 Neeraj [id number] [facility] 2022-08-26 2022-08-26 Outpatient IRON LinTO PATRICIA [id number] [facility] 05:25:00 05:25:00 [place] [facility] 2022-08-22 2022-08-22 Outpatient FOG_Goytia_ AOSM AOSM [id number] Leyla 00:00:00 00:00:00 Neeraj [id number] [facility] 2022-08-22 2022-08-22 Outpatient FOG_Goytia_ AOSM AOSM [id number] Leyla 00:00:00 00:00:00 Neeraj [id number] [facility] 2022-08-22 2022-08-22 Outpatient FOG_Goytia_ AOSM AOSM [id number] Leyla 00:00:00 00:00:00 Neeraj [id number] [facility] 2022-08-19 2022-08-19 Outpatient FOG_Goytia_ AOSM AOSM [id number] Leyla 00:00:00 00:00:00 Neeraj [id number] [facility] 2022-08-18 2022-08-18 Outpatient FOG_Goytia_ AOSM AOSM [id number] Leyla 00:00:00 00:00:00 Neeraj [id number] [facility] Medic[facility] e 2022-06-01 2022-06-01 Outpatient FOG_Goytia_ AOSM AOSM [id number] Leyla 00:00:00 00:00:00 Neeraj [id number] [facility] 2022-06-01 2022-06-01 Outpatient FOG_Goytia_ AOSM AOSM [id number] Leyla 00:00:00 00:00:00 Neeraj [id number] [facility] Medic[facility] e 2022-06-01 2022-06-01 Outpatient FOG_Goytia_ AOSM AOSM [id number] Leyla 00:00:00 00:00:00 Neeraj [id number] [facility] Medic[facility] e 2022-06-01 2022-06-01 Outpatient FOG_Goytia_ AOSM AOSM [id number] Leyla 00:00:00 00:00:00 Neeraj [id number] [facility] Medic[facility] e 2022-05-31 2022-05-31 Outpatient FOG_Goytia_ AOSM AOSM [id number] Leyla 00:00:00 00:00:00 Neeraj [id number] [facility] pe [facility] Sports Medicin e 2022-05-31 2022-05-31 Ugonna N AOSM [place] - Ortho Leyla 00:00:00 00:00:00 Briseyda Trevino MD: [id number] FOG_Ofc dic [facility] Spo [facility] [place] [id number] , Ph. [phone] 2022-04-01 2022-04-01 Outpatient FOG_Goytia_ AOSM AOSM [id number] Leyla 00:00:00 00:00:00 Neeraj [id number] [facility] Medicin e 2022-04-01 2022-04-01 Outpatient FOG_Goytia_ AOSM AOSM [id number] Leyla 00:00:00 00:00:00 Neeraj [id number] [facility] Medicin e 2022-03-17 2022-03-17 Outpatient FOG_Goytia_ AOSM AOSM [id number] Leyla 00:00:00 00:00:00 Neeraj [id number] [facility] Medic[facility] e 2022-03-17 2022-03-17 Cullen P AOSM [place] - Ortho Leyla 00:00:00 00:00:00 Briseyda Henning PA: [id number] FOG[facility]Ofc dic [facility] [place] [address] , Ph. [phone] 2022-03-15 2022-03-15 Outpatient FOG_Goytia_ AOSM AOSM [id number] Leyla 00:00:00 00:00:00 Neeraj [id number] [facility] pe [facility] Medic[facility] e 2022-03-15 2022-03-15 Outpatient FOG_Goytia_ AOSM AOSM [id number] Leyla 00:00:00 00:00:00 Neeraj [id number] [facility] pe [facility] Medicin e 2022-02-28 2022-02-28 Outpatient FOG_Goytia_ AOSM AOSM [id number] Leyla 00:00:00 00:00:00 Neeraj [id number] [facility] 2022-02-24 2022-02-25 Inpatient EL IRON Trevino SURG [id number] [facility] 07:56:00 12:00:00 Ugonna [facility] [place] [facility] 2022-02-24 2022-02-24 Outpatient FOG_Goytia_ AOSM AOSM [id number] Leyla 00:00:00 00:00:00 Neeraj [id number] [facility] pe [facility] Medic[facility] e 2022-02-24 2022-02-24 [place]n N AOSM [place] - Ortho [id number] Leyla 00:00:00 00:00:00 Briseyda Trevino MD: [id number] FOG_Surgery dic [facility] [address] , Ph. [phone] 2022-02-09 2022-02-09 Outpatient IRON Trevino LABO [id number] [facility] 16:08:00 16:08:[address] [place] [address] 2022-02-09 2022-02-09 Outpatient FOG_Goytia_ AOSM AOSM [id number] Leyla 00:00:00 00:00:00 Neeraj [id number] [facility] Medic[facility] e 2022-02-09 2022-02-09 Outpatient FOG_Goytia_ AOSM AOSM [id number] Leyla 00:00:00 00:00:00 Neeraj [id number] [facility] e 2022-02-09 2022-02-09 Cullen P [facility]OS[facility] [place] - Ortho [id number] Leyla 00:00:00 00:00:00 Briseyda Henning PA: [id number] FOG_Ofc dic [facility] Spo [facility] e [address] , Ph. [phone] 2022-02-08 2022-02-08 Outpatient FOG_Goytia_ AOSM AOSM [id number] Leyla 00:00:00 00:00:00 Neeraj [id number] Orth[facility] pe dic Sports Medicin e 2022-01-06 2022-01-06 Outpatient FOG_Goytia_ AOSM AOSM [id number] Leyla 00:00:00 00:00:00 Neeraj [id number] Orth[facility] pe dic Sports Medicin e 2022-01-05 2022-01-05 Outpatient FOG_Goytia_ AOSM AOSM [id number] Leyla 00:00:00 00:00:00 Neeraj [id number] [facility] Sports Medicin e 2021-12-23 2021-12-23 Outpatient FOG_Goytia_ AOSM AOSM [id number] Leyla 00:00:00 00:00:00 Neeraj [id number] Ortho pe dic Sports Medicin e 2021-12-20 2021-12-20 Outpatient FOG_Goytia_ AOSM AOSM [id number] Leyla 00:00:00 00:00:00 Neeraj [id number] Orth[facility] pe dic Sports Medicin e 2021-12-20 2021-12-20 Ugonna N AOSM [place] - Ortho Leyla 00:00:00 00:00:00 Briesyda Trevino MD: [id number] FOG_Ofc dic [facility] [place] [address] , Ph. [phone] 2021-12-15 2021-12-15 Outpatient FOG_Goytia_ AOSM AOSM [id number] Leyla 00:00:00 00:00:00 Neeraj [id number] Orth[facility] pe dic Sports Medicin e 2021-12-07 2021-12-07 Outpatient FOG_Goytia_ AOSM AO [id number] Leyla 00:00:00 00:00:00 Neeraj [id number] Orth[facility] pe dic Sports Medicin e Results Test Description Test Time Test Comments Results Result Comments Source COMPREHENSIVE METABOLIC PANEL 2022-08-18 20:52:00 Test Item Value Reference Range Interpretation Comme nts SODIUM (test code = NA) 137 mEq/L 135-145 POTASSIUM (test code = K) 3.9 mEq/L 3.5-5.0 CHLORIDE (test code = CL) 100 mEq/L 100-115 CARBON DIOXIDE (test code = 28 mEq/L 22-31 CO2) GLUCOSE (test code = GLU) 127 mg/dL 65-110 H BLOOD UREA NITROGEN (test code 22 mg/dL 7-18 H = BUN) GLOMERULAR FILTRATION RATE 64.6 >60 T he Glomerular Filtration Rate (test code = GFR) is a calcu lated parameterbased on serum Creati nine, patient age and sex. GFR va luesless than 60 mL/min/1.73 squ are meters are indicative ofCh ronic Kidney Disease. Values less than 15 mL/min/1.73squa re meters indicate Kidney failure. The calculation for GFR is based on the CKD-EPI (20 21) calculation. This formulais race indifferent and is the cheryl mmended formula for GFRby the [facility] for Adults.The GFR will not calcul ate if the sex is unknown or if t hepatient's age is <18 years.Th e Glomerular Filtration Rate is a calculated parameterbased on serum Creatinine, pat ient age and sex. GFR valuesless than 60 mL/min/1.73 squ are meters are indicative ofCh ronic Kidney Disease. Values less than 15 mL/min/1.73squa re meters indicate Kidney failure. The calculation for GFR is based on the CKD-EPI (20 21) calculation. This formulais race indifferent and is the cheryl mmended formula for GFRby the [facility] for Adults.The GFR will not calcul ate if the sex is unknown or if t hepatient's age is <18 years. CREATININE (test code = CREAT) 1.1 mg/dL 0.7-1.3 TOTAL PROTEIN (test code = 7.7 gm/dL 6.3-8.2 PROT) ALBUMIN (test code = ALB) 3.9 gm/dL 3.4-4.8 GLOBULIN (test code = GLOB) 3.8 ALBUMIN/GLOBULIN RATIO (test 1.03 code = A/G) CALCIUM (test code = CA) 9.1 mg/dL 8.4-10.2 BILIRUBIN TOTAL (test code = 0.3 mg/dL 0.2-1.0 BILT) SGOT/AST (test code = AST) 20 units/L 15-37 SGPT/ALT (test code = ALT) 19 units/L 12-78 ALKALINE PHOSPHATASE TOTAL 104 units/L 46-116 (test code = ALKP) COMPREHENSIVE METABOLIC [id number] 20:51:00 Test Item Value Reference Range Interpretation Comments SODIUM (test code = 137 mEq/L 135-145 N NA) POTASSIUM (test code 3.9 mEq/L 3.5-5.0 N = K) CHLORIDE (test code 100 mEq/L 100-115 N = CL) CARBON DIOXIDE (test 28 mEq/L 22-31 N code = CO2) ANION GAP (test code 13.20 10-20 N = GAP) GLUCOSE (test code = 127 mg/dL 65-110 H GLU) BLOOD UREA NITROGEN 22 mg/dL 7-18 H (test code = BUN) GLOMERULAR 65 ml/min >60 N The Glomerular FILTRATION RATE Filtration R ate is a (test code = GFR) calculated parameterbased on serum Creatinin e, patient age and sex. GFR valuesless than 60 mL/min/1.73 squ are meters are malcolm cative ofChronic Kidne y Disease. Values less than 15 mL/min/1.73squa re meters indicate Kidney failure. The calculation for GFR is based on the CK D-EPI (2020) calculat ion. This formulais race indifferent and is the recommended for valentine for GFRby the [facility] on [facility] Ad[facility].The GFR will not calculate i f the sex is unknown or if thepatient's ag e is <18 years. CREATININE (test 1.1 mg/dL 0.7-1.3 N code = CREAT) TOTAL PROTEIN (test 7.7 gm/dL 6.3-8.2 N code = PROT) ALBUMIN (test code = 3.9 gm/dL 3.4-4.8 N ALB) CALCIUM (test code = 9.1 mg/dL 8.4-10.2 N CA) BILIRUBIN TOTAL 0.3 mg/dL 0.2-1.0 N (test code = BILT) SGOT/AST (test code 20 units/L 15-37 N = AST) SGPT/ALT (test code 19 units/L 12-78 N = ALT) ALKALINE PHOSPHATASE 104 units/L 46-116 N TOTAL (test code = ALKP) CBC W/AUTO [id number] 18:35:00 Test Item Value Reference Range Interpretation Comments WHITE BLOOD CELL (test code = WBC) 8.2 K/mm3 5.7-10.5 N RED BLOOD CELL (test code = RBC) 4.77 M/mm3 4.2-5.4 N HEMOGLOBIN (test code = HGB) 14.3 g/dL 12-16 N HEMATOCRIT (test code = HCT) 42.4 % 37-47 N MEAN CELL VOLUME (test code = MCV) 89 fL 80-98 N MEAN CELL HGB (test code = MCH) 30.0 pg 27-34 N MEAN CELL HGB CONCENTRATION (test 33.7 g/dL 30.8-34.1 N code = MCHC) RED CELL DISTRIBUTION WIDTH (test 13.1 % 11-16 N code = RDW) PLT (test code = PLT) 298 K/mm3 130-400 N MEAN PLATELET VOLUME (test code = 9.8 fL 8.9-12.1 N MPV) NEUTROPHIL % (test code = NT%) 62.9 % 45-70 N LYMPHOCYTE % (test code = LY%) 24.2 % 20-40 N MONOCYTE % (test code = MO%) 10.0 % 3-10 N EOSINOPHIL % (test code = EO%) 1.8 % 1-5 N BASOPHIL % (test code = BA%) 0.7 % 0.0-1.1 N NEUTROPHIL # (test code = NT#) 5.18 K/mm3 2.00-7.50 N LYMPHOCYTE # (test code = LY#) 1.99 K/mm3 1.50-4.00 N MONOCYTE # (test code = MO#) 0.82 K/mm3 0.2-0.8 H EOSINOPHIL # (test code = EO#) 0.15 K/mm3 0.04-0.4 N BASOPHIL # (test code = BA#) 0.06 K/mm3 0.02-0.10 N MANUAL DIFF REQUIRED (test code = NO MANUAL DIFF MDIFF) NUCLEATED RED BLOOD CELL (test 0 % 0-0 N code = NRBC) BASIC METABOLIC [id number] 09:14:00 Test Item Value Reference Range Interpretation Comments SODIUM (test code = 138 mmol/L 136-145 N NA) POTASSIUM (test 4.3 mmol/L 3.5-5.1 N code = K) CHLORIDE (test code 101.0 mmol/L 98-107 N = CL) CARBON DIOXIDE 27.0 mmol/L 21-32 N (test code = CO2) GLUCOSE (test code 118 mg/dL 70-110 H = GLU) BLOOD UREA NITROGEN 24 mg/dL 7-18 H (test code = BUN) GLOMERULAR 60.6 >60 The Glomerular FILTRATION RATE Filtration R ate is a (test code = GFR) calculated parameterbased on serum Creatinin e, patient age and sex. GFR valuesless than 60 mL/min/1.73 squ are meters are malcolm cative ofChronic Kidne y Disease. Values less than 15 mL/min/1.73squa re meters indicate Kidney failure. The calculation for GFR is based on the CK D-EPI (2020) calculat ion. This formulais race indifferent and is the recommended for valentine for GFRby the [facility] on for Adults.The GFR will not calculate i f the sex is unknown or if thepatient's ag e is <18 years. CREATININE (test 1.16 mg/dL 0.55-1.30 N code = CREAT) CALCIUM (test code 8.3 mg/dL 8.2-10.1 N = CA) HGB [id number] 06:24:00 Test Item Value Reference Range Interpretation Comments HEMOGLOBIN (test code = HGB) 11.5 g/dL 12-16 L HEMATOCRIT (test code = HCT) 34.2 % 37-47 L SPECIMEN COMMENT: POD #1Hemoglobin and Hematocrit panel - [id number] 03:10:00 Test Item Value Reference Range Interpretation Comments hemoglobin (test code = hemoglobin) 11.5 g/dL 12-16 L hematocrit (test code = hematocrit) 34.2 % 37-47 L performing lab: (test code = performing lab[facility] 2022-02-25 03:10:00 Test Item Value Reference Range Interpretation Comments hemoglobin (test code = hemoglobin) 11.5 g/dL 12-16 L hematocrit (test code = hematocrit) 34.2 % 37-47 L performing lab: (test code = performing lab:) [facility] [id number] 17:21:00 Test Item Value Reference Range Interpretation Comments PTT ACTIVATED (test 30.9 secs 26.6-34.6 N Please n ote new code = APTT) normal range. IS PATIENT ON ANTICOAGULANTS ? OHas Lab been notified if Patient is on Heparin Drip? NOPROTHROMBIN [id number] 17:21:00 Test Item Value Reference Range Interpretation Comments PROTHROMBIN TIME 10.1 secs 9.7-12.5 N Please note new normal PATIENT (test code = range. PTP) INTERNATIONAL NORMAL 0.91 <2.0 RECOMME NDED THERAPEUTIC RATIO (test code = RANGE FOR ORAL INR) ANTICOAGULANTTR EATMENT: CONDITION INRPr ophylaxis of venous throm bosis in 2.0 - 3.0 high- risk medical or surg ical patientsTreatme nt of venous thrombos is 2.0 - 3.0Prevention o f embolism 2.0 - 3.0Prevention o f recurrent embol ism, or 3.0 - 4.5 patie nts with mechanical pros thetic intravascular v damian IS PATIENT ON ANTICOAGULANTS ? OHas Lab been notified if Patient is on Heparin Drip? NOCOMPREHENSIVE METABOLIC [id number] 17:17:00 Test Item Value Reference Range Interpretation Comments SODIUM (test code = 136 mmol/L 136-145 N NA) POTASSIUM (test code 4.3 mmol/L 3.5-5.1 N = K) CHLORIDE (test code 99.0 mmol/L 98-107 N = CL) CARBON DIOXIDE (test 30.2 mmol/L 21-32 N code = CO2) GLUCOSE (test code = 103 mg/dL 70-110 N GLU) BLOOD UREA NITROGEN 25 mg/dL 7-18 H (test code = BUN) GLOMERULAR 55.4 >60 The Glomerular FILTRATION RATE Filtration R ate is a (test code = GFR) calculated parameterbased on serum Creatinin e, patient age and sex. GFR valuesless than 60 mL/min/1.73 squ are meters are malcolm cative ofChronic Kidne y Disease. Values less than 15 mL/min/1.73squa re meters indicate Kidney failure. The calculation for GFR is based on the CK D-EPI (2020) calculat ion. This formulais race indifferent and is the recommended for valentine for GFRby the N ational [facility]ney Foundati on for Adults.The GFR will not calculate i f the sex is unknown or if thepatient's ag e is <18 years. CREATININE (test 1.25 mg/dL 0.55-1.30 N code = CREAT) TOTAL PROTEIN (test 7.4 g/dL 6.4-8.2 N code = PROT) ALBUMIN (test code = 3.8 g/dL 3.4-5.0 N ALB) GLOBULIN (test code 3.6 g/dL 2.2-4.2 N = GLOB) ALBUMIN/GLOBULIN 1.1 0.7-2.0 N RATIO (test code = A/G) CALCIUM (test code = 8.5 mg/dL 8.2-10.1 N CA) BILIRUBIN TOTAL 0.30 mg/dL 0.2-1.00 N (test code = BILT) SGOT/AST (test code 20.0 U/L 15-37 N = AST) SGPT/ALT (test code 19.0 U/L 12-78 N Please n ote new normal = ALT) range. ALKALINE PHOSPHATASE 87 U/L 46-116 N TOTAL (test code = ALKP) CBC W/AUTO [id number] 17:10:00 Test Item Value Reference Range Interpretation Comments WHITE BLOOD CELL (test code = WBC) 6.6 K/mm3 5.7-10.5 N RED BLOOD CELL (test code = RBC) 4.40 M/mm3 4.2-5.4 N HEMOGLOBIN (test code = HGB) 13.0 g/dL 12-16 N HEMATOCRIT (test code = HCT) 39.9 % 37-47 N MEAN CELL VOLUME (test code = MCV) 91 fL 80-98 N MEAN CELL HGB (test code = MCH) 29.5 pg 27-34 N MEAN CELL HGB CONCENTRATION (test 32.6 g/dL 30.8-34.1 N code = MCHC) RED CELL DISTRIBUTION WIDTH (test 12.7 % -16 N code = RDW) PLT (test code = PLT) 272 K/mm3 130-400 N MEAN PLATELET VOLUME (test code = 10.9 fL 8.9-12.1 N MPV) NEUTROPHIL % (test code = NT%) 55.9 % 45-70 N LYMPHOCYTE % (test code = LY%) 28.4 % 20-40 N MONOCYTE % (test code = MO%) 13.1 % 3-10 H EOSINOPHIL % (test code = EO%) 1.8 % 1-5 N BASOPHIL % (test code = BA%) 0.5 % 0.0-1.1 N NEUTROPHIL # (test code = NT#) 3.71 K/mm3 2.00-7.50 N LYMPHOCYTE # (test code = LY#) 1.88 K/mm3 1.50-4.00 N MONOCYTE # (test code = MO#) 0.87 K/mm3 0.2-0.8 H EOSINOPHIL # (test code = EO#) 0.12 K/mm3 0.04-0.4 N BASOPHIL # (test code = BA#) 0.03 K/mm3 0.02-0.10 N MANUAL DIFF REQUIRED (test code = NO MANUAL DIFF MDIFF) NUCLEATED RED BLOOD CELL (test 0 % 0-0 N code = NRBC) CBC W Auto Differential panel - [id number] 15:00:00 Test Item Value Reference Range Interpretation Comments white blood cell (test code = 6.6 K/mm3 5.7-10.5 white blood cell) red blood cell (test code = red 4.40 M/mm3 4.2-5.4 blood cell) hemoglobin (test code = 13.0 g/dL 12-16 hemoglobin) hematocrit (test code = 39.9 % 37-47 hematocrit) mean cell volume (test code = mean 91 fL 80-98 cell volume) mean cell HGB (test code = mean 29.5 pg 27-34 cell HGB) mean cell HGB concentration (test 32.6 g/dL 30.8-34.1 code = mean cell HGB concentration) red cell distribution width (test 12.7 % -16 code = red cell distribution width) plt (test code = plt) 272 K/mm3 130-400 mean platelet volume (test code = 10.9 fL 8.9-12.1 mean platelet volume) neutrophil % (test code = 55.9 % 45-70 neutrophil %) lymphocyte % (test code = 28.4 % 20-40 lymphocyte %) monocyte % (test code = monocyte 13.1 % 3-10 H %) eosinophil % (test code = 1.8 % 1-5 eosinophil %) basophil % (test code = basophil 0.5 % 0.0-1.1 %) neutrophil # (test code = 3.71 K/mm3 2.00-7.50 neutrophil #) lymphocyte # (test code = 1.88 K/mm3 1.50-4.00 lymphocyte #) monocyte # (test code = monocyte 0.87 K/mm3 0.2-0.8 H #) eosinophil # (test code = 0.12 K/mm3 0.04-0.4 eosinophil #) basophil # (test code = basophil 0.03 K/mm3 0.02-0.10 #) manual diff required (test code = no manual diff manual diff required) nucleated red blood cell (test 0 % 0-0 code = nucleated red blood cell) performing lab: (test code = performing lab:) [facility] - Serum or [id number] 15:00:00 Test Item Value Reference Range Interpretation Comments sodium (test code = sodium) 136 mmol/L 136-145 potassium (test code = potassium) 4.3 mmol/L 3.5-5.1 chloride (test code = chloride) 99.0 mmol/L 98-107 carbon dioxide (test code = 30.2 mmol/L 21-32 carbon dioxide) glucose (test code = glucose) 103 mg/dL 70-110 blood urea nitrogen (test code = 25 mg/dL 7-18 H blood urea nitrogen) glomerular filtration rate (test 55.4 >60 code = glomerular filtration rate) creatinine (test code = 1.25 mg/dL 0.55-1.30 creatinine) total protein (test code = total 7.4 g/dL 6.4-8.2 protein) albumin (test code = albumin) 3.8 g/dL 3.4-5.0 globulin (test code = globulin) 3.6 g/dL 2.2-4.2 albumin/globulin ratio (test code 1.1 0.7-2.0 = albumin/globulin ratio) calcium (test code = calcium) 8.5 mg/dL 8.2-10.1 bilirubin total (test code = 0.30 mg/dL 0.2-1.00 bilirubin total) SGOT/AST (test code = SGOT/AST) 20.0 U/L 15-37 SGPT/ALT (test code = SGPT/ALT) 19.0 U/L 12-78 alkaline phosphatase total (test 87 U/L 46-116 code = alkaline phosphatase total) performing lab: (test code = performing lab:) [facility]2022-02-09 15:00:00 Test Item Value Reference Range Interpretation Comments prothrombin time patient (test code 10.1 secs 9.7-12.5 = prothrombin time patient) international normal ratio (test 0.91 <2.0 code = international normal ratio) performing lab: (test code = performing lab:) [facility] [id number] 15:00:00 Test Item Value Reference Range Interpretation Comments PTT activated (test code = PTT 30.9 secs 26.6-34.6 activated) performing lab: (test code = performing lab:) [facility] HospitalMethicillin resistant Staphylococcus aureus [Presence] in Specimen by Organism specific [id number] 15:00:00 Test Item Value Reference Range Interpretation Comments MRSA surveillance screen (test code see below = MRSA surveillance screen) performing lab: (test code = performing lab:) [facility] surveillance [id number] 15:00:00 Test Item Value Reference Range Interpretation Comments mssa PCR surveillance screen (test see below code = mssa PCR surveillance screen) performing lab: (test code = performing lab:) [facility] Notes Date/Time Note Provider Source 2022-08-26 10:40:00 [id number] [facility] [address] [place] [address] PATIENT NAME: ANTHONY FONG ADMIT DATE: 08/26/22ACCOUNT NO: [id number] ROOM NO: MEDICA L RECORD NO: [id number] AGE: 86 REPORT TYPE: OPERATIVE REPORT SEX: M ADMITTING PHYSICIAN: ATTENDING PHYSICIAN:Vincent Benitez MD OPERATION DATE: 08/26/2022 Knee arthroscopy template FINAL DIAGNOSIS: Left knee extensive synovitis, 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 FINAL PROCEDURE: Left knee arthroscopy with extensive debridement and synovectomy, 51341. 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 PROCEDURE: Left knee arthroscopy with extensive debridement and synovectomy, 74544. FINAL IMPLANTS AND TECHNIQUE: Not applicable. SURGEON: Vincent Benitez M.D. LEASING CONSULTANT: None . ANESTHESIA: General. BRIEF CLINICAL HISTORY: Sharmila valle is an 86-year-old male status post total knee arthroplasty done on 02/24/2022. He did well postoperatively, but he started developing mechanical symptoms. 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 He now presents for operative intervention for debridement. He does have good range of motion. PROCEDURE DETAIL: The left knee was appropriatel y identified. The patient was then placed under general anesthesia and placed in the supine position. The leftknee was prepped and draped in sterile fashion. Superomedial inflow portal was established. INTRAARTICULAR FLUID: None. Anterolateral and anteromedial portals were established. FINDINGS IN THE NOTCH:ACL: Absent.PCL: Absent. PATIENT NAME: ANTHONY FONG [place] OTHER: Hypertrophic dukes and white colored fibrinous tissue debrided using a 5 mm shaver. FINDINGS IN THE MEDIAL COMPARTMENT:ARTICULAR CARTILAGE: TKA in place.MENISCUS: Absent.OTHER: None. FINDINGS IN THE LATERAL COMPARTMENT:ARTICULAR CARTILAGE: TKA in place.MENISCUS: Absent.OTHER: None. FINDINGS IN THE PATELLOFEMORAL COMPARTMENT:PATELLAR ARTICULA R CARTILAGE: TKA in place.TROCHLEAR ARTICULAR CARTILAGE: TKA in place.OTHER: Hypertrophic scar tissue on the back or deep side of the patellar tendon. This was debrided extensively with the arthroscope placed in the superolateral portal and instruments placed in both the medial and lateral portals. Debridement was done down to th e level of the tibial tray into the gutters. MEDIA L GUTTER: Hypertrophic scar tissue debrided.LATERA L GUTTER: Even more than the medial side with significant hypertrophic scar tissue debrided throughout the medial gutter.SUPRAPATELLAR POUCH : Large hypertrophic area of synovitis and scar tissue on the undersurface of the quadriceps tendon to the superior pole of the patella. This was also debrided and removed. All instruments were then removed from the knee and the portal sites were closedusing 3-0 monocryl suture. The knee was injected with morphine. Dressings were then placed. COMPLICATIONS: None. ESTIMATED BLOO D LOSS: Minimal. SPECIMENS: None. PROGNOSIS: Good. I spoke to his postoperatively. He will be weightbearing as tolerated and range of motion a s tolerated. Dictated By: Vincent Benitez MD Date Dictated: 08/26/2022 10:40:17Date Transcribed: 08/26/2022 11:17:15[facility]/VSRJob #: [id number] ID: [id number] by Vincent Benitez MD On 08/27/2022 09:01:59 AM PATIENT NAME: ANTHONY FONG at 0901 PATIENT NAME: ANTHONY FONG dqjqgh6095-41-31F97:17:00Y.[id number] i lable for patient nifgZUWRXFWATLTUAX0821-50-27E82:02:31 2022-08-26 06:20:00 [id number]:20:00 [facility] ([facility])Brief Op NoteREPORT#:[id number] REPORT STATUS: SignedDATE:08/26/22 TIME: 619 PATIENT: ANTHONY FONG UNIT #: [id number]#: [id number] ROOM/BED:: 33 AGE: 86 SEX: M ATTEND: Vincent Benitez AUTHOR: Vincent Benitez MD * ALL edits or amendments must be made on the electronic/computer document * Op/Inv Proc Note - BriefPre-procedure diagnosis:left knee synovitisPost-procedure diagnosis: same as pre procedure dxProcedures performed:left knee arthroscopy with extensive synovectomyPrimary Surgeon:Jovitaistant(s): noneFindings:moderate synovitisComplications: noneEstimated blood loss in ml's: noneSpecimens removed/altered: none at 0927 [facility] #:[id number] OF REPORT OPOperative pkkiuc9053-11-92W91:20:00Y.[id number] a ilable for patient baclLMYZWKSCVDPCJN7192-26-45S87:27:31 2022-08-23 15:32:00 [id number]:32:[id number] [place] [id number] PATIENT NAME: ANTHONY FONG ADMIT DATE: ACCOUNT NO: [id number] ROOM NO: AGE: 86 REPORT TYPE: HISTORY AND PHYSICAL SEX: M ADMITTING PHYSICIAN: ATTENDING PHYSICIAN:Vincent Benitez MD ADMISSION DATE: 08/26/2022 15:05:00 DATE OF ANTICIPATED SURGERY: 08/26/2022. CHIEF COMPLAINT: Left knee pain. HISTORY OF PRESENT ILLNESS: This is an 86-year-old gentleman who is status postleft total knee arthroplasty done on 02/24/2022. At his last postoperativevisit with the joint replacement doctor, he was doing well, but had complaintsof anterior popping and cracking. Most of his pain is with extension. He hasmoderate pain and discomfort with his activities of daily living and nowpresents for surgical arthroscopy. PAST MEDICAL HISTORY: Hypertension, hypercholesterolemia. PAST SURGICAL HISTORY: Lef t total knee arthroplasty as stated above in the HPI. MEDICATIONS: Amlodipine, armour thyroid, aspirin, clonidine, gabapentin,hydrochlorothiazide, Lorazepam, meloxicam, methocarbamol, nystatin, Robaxin,spironolactone, tramadol, Valacyclovir. ALLERGIES: LYRICA AND STADOL. FAMILY HISTORY: Noncontributory. SOCIAL HISTORY: The patient is . He is a former tobacco user and deniesany alcohol use. REVIEW OF SYSTEMS:HEENT: Negative.PULMONARY: Negative.RENAL: Negative.CARDIOVASCULAR: Negative.GASTROINTESTINAL: Negative.NEUROLOGIC: Negative.ENDOCRINE: Negative. PHYSICAL EXAMINATION:GENERAL: This is a well-developed, well-nourished, 86-year-old male in no acutedistress.HEENT: Normal.PULMONARY: Spontaneous breathing. PATIENT NAME: ANTHONY FONG CARDIOVASCULAR: Spontaneous pulse.ABDOMEN: Soft.EXTREMITIES: Examination of the left lower extremity demonstrates moderatepainful patellofemoral crepitation at 30-40 degrees of flexion going fromextension to flexion or flexio n to extension. Range of motion is between 10 qtd876 degrees. Bogginess with no effusion. Healed midline scar. ASSESSMENT: Left knee synovitis, status post total knee arthroplasty. PLAN: Left knee arthroscopy with extensive debridement and any associatedprocedures. Risks and benefits have been detailed to the patient including allrehab and recovery time. The patien t understands and is ready to proceed. Dictated By : Lynda Truong PA-C for Vincent Benitez MD Date Dictated: 08/23/2022 15:32:31Date Transcribed: 08/23/2022 18:05:24KENYA/SILAS/MARIAN/Fuentes #: [id number] ID: [id number] by Lynda Truong PA-C On 08/24/2022 08:03:13 AMAuthenticated and Edited by Vincent Benitez MD On 08/24/22 3:31:51 PM at 0341 at 0803 PATIENT NAME: ANTHONY FONG and physical texhnwnnsec2036-97-02D91:05:00Y.[id number] A VAvailable for patient ekahBCIKAOBOWKAYHI3594-30-45N72:42:05 2022-02-25 10:17:00 [id number]:17:00 [facility] ([facility])Discharge SummaryREPORT#:[id number] REPORT STATUS: SignedDATE:02/25/22 TIME: 101 PATIENT: ANTHONY FONG [place]OLA UNIT #: [id number]#: [id number] [facility] AGE: 86 SEX: M ATTEND: Arely Trevino AUTHOR: Arely Trevino MD * ALL edits or amendments must be made on the electronic/computer document * General InformationDischarge date: 02/25/22Admission diagnosis:left knee OADischarg e diagnosis:sameHospital course:Discharge Diagnosis: Left Knee Degenerative Disease Procedure: Left Knee Arthroplasty Hospital Cours e and Findings The patient underwent the procedure without incident. Findings were significantfor degenerative disease of the knee. The patient wa s hemodynamically and medically monitored during the postoperative period. Anticoagulation was instituted for postoperative DVT prophylaxis. Th e patient was progressively able to tolerate PO pain medications and the appropriate diet. Physical therapywas instituted, with a progressive ability to ambulate and perform exercises. The patient was eventually deemed stable and safe for discharge. Despite factors which projected a longer hospital stay, the patient fulfilled criteria for earlier than expected discharge, including control of pain, early mobilization with therapy, and a stable hemodynamic status.At discharge, the patient was comfortable, with a controlled pain level. There were no chest or abdominal symptoms present. Discharge physical examination demonstrated stable vital signs and no acute distress. The patient had an intact wound with no significant drainage, and no calf tenderness and a negativeHoman's sign bilaterally. There were no neurologic or vascular deficits or changes from the preoperative state. Disposition: Discharged to home Discharge Condition: Stable Instructions : Instruction sheet given to patient Activity: Ambulate with assistance, with weight-bearing as instructed in the hospital. Diet: As per preoperatively Prescriptions 1. Pain Medications : As per discharge prescription, with progressive weaning as pain decreases 2. Anticoagulation: As per discharge prescription, or PreOp anticoagulant, as discussed with patient3. Physical Therapy: Will undergo PT for gait training, mobilization, uoiha-jq-lactjz, and strengthening. Patient was informed to that they need to arrange for therapy asquickly as possible. The importance of early advancement of vufnw-vl-awtojn withhome exercises, and physical therapy was stressed to the patient. Follow-up Appointment: Patient instructed to arrange appointment for an office visit in 3 weeks Med Rec Med RecDischarge meds:Stop taking the following medications:CHOLECALCIFEROL (VITAMIN D3) (VITAMIN D3) 25 MCG (1,000 UNIT) TAB 1,000 UNITS ORAL DAILY. Continue taking these medications:FEBUXOSTAT (ULORIC) 80 MG TAB 80 MILLIGRAM ORAL DAILY. THYROID,PORK (ARMOUR THYROID) 180 MG TAB 90 MILLIGRAM ORAL DAILY. cloNIDine (cloNIDine) 0.1 MG TAB 0.1 MILLIGRAM ORAL DAILY. hydrALAZINE (APRESOLINE) 50 MG TAB 5 0 MILLIGRAM ORAL TWICE DAILY. LORazepam (ATIVAN) 0.5 MG TAB 0.5 MILLIGRAM ORAL AT BEDTIME NEEDED. as needed for ANXIETY Discharge Instructions PCP)( Discharge to: Home/Self Care Discharge InstructionsAdditional Discharge Routines: Attending Follow-Up)( Diet: Resume Isaiah e Diet/Feeds Follow-up AppointmentsAttending Physician: Attending Physician: Aerly Trevino MD Attending physician follow up timeframe: In 2-3 weeks Special instructions:call office for appointment Electronically Signed by Arely Trevino MD 02/25/22 at 1018 RPT #:[id number] OF REPORT DSDischarge gfteomt1926-56-11O82:17:00Y.[id number] v ailable for patient cykhNFFUKQRWTIUTGO9715-30-57A15:18:47 2022-02-25 10:14:00 [id number]:14:00 [facility])Orthopaedic Progress NoteREPORT#:[id number] REPORT STATUS: SignedDATE:02/25/22 TIME: 1014 PATIENT: ANTHONY FONG UNIT #: [id number]#: [id number] [facility] AGE: 86 SEX: M ATTEND: Arely Trevino AUTHOR: Arely Trevino MD * ALL edits or amendments must be made on the electronic/computer document * SubjectiveComments:Procedure: L TKADOS: 02/24/22 Subjective: Patinet is doing well and pain is controlled. Physical Exam: NAD, BZTi7Qptxkdli site: C/D/IOperative Extremity: dressing c/d/i in place and without concernNeuro : SILT Sa/Aponte/Sp/Dp Motor: Intact DF/PFWWP Assessment: 86 year old male doing well followin g surgeryPlan: - Pain control- Appreciate IM recommendations- PT: WBAT- Despite originally planned for 2 night s stay, the patient did exceed expectations and was able to be discharge d on POD 1.- Possible discharge pending clearance Electronically Signed by Arely Trevino MD 02/25/22 at 1015 RPT #:[id number] OF REPORT PRProgress kkdz1386-60-47G27:14:00Y.[id number] l able for patient otjpWTPAYLAPAGVBSQ8020-40-80L05:16:17 2022-02-25 08:43:00 [id number]:43:00 [facility])Clinical NoteREPORT#:[id number] REPORT STATUS: SignedDATE:02/25/22 TIME: 0843 PATIENT: ANTHONY FONG NOLA UNIT #: [id number]#: [id number] [facility] [birth year] AGE: 86 SEX: M ATTEND: Arely Trevino AUTHOR: nAt Hickman MD * ALL edits or amendments must be made on the electronic/computer document * Clinical NoteNote:[facility] Ant Tobias M.D. (cell text [phone]) Assessment/Plan1.) Anemia of acute blood loss- .Hgb 11.5, asymptomatic.2.) S/p Left TKA- .acute multi-modal pain control and followup. Anticoagulationas per Dr. Trevino.3. ) Hypertension- .follow BP and hold Rxs if SBP<120 . Relates that he refuses totry other BP medications or adjust his current dose due to prior side effects hehas experienced. He states stress reliever medication will help lower his BP.4.) OsteoArthritis Hyperlipidemia Hypothyroid - .continue on Rx.* OK for DISCHARGE per Internal Medicine.* Discussed continued followup with PCP(who knows what he can tolerate tried) onBP management. Prior Events/Overnight: Uneventful.Chief Complaint: No significant complaints. ObjectiveVital Signs: Date Time Temp Pulse Resp B/P B/P Pulse O2 O2 Flow FiO2 Mean Ox Delivery Rate 02/25 0705 96.8 57 18 156/74 101.4 97 Nasal cannula 02/25 0305 98.6 69 18 153/57 89.3 96 Nasal cannula 02/25 0229 95 Nasal 3 32 cannula 02/24 2246 98.6 74 19 169/60 96.7 95 Nasal cannula 02/24 2145 97 Nasal 2 28 cannula 02/24 1854 98.4 62 19 182/84 116.7 95 Room air 02/24 1555 96.8 73 18 196/82 119.6 96 Nasal cannula 02/24 1555 96.8 73 18 196/82 119.6 96 Nasal cannula 02/24 1500 97 Nasal 1 cannula 02/24 1423 Nasal 3 cannula 02/24 1423 97.0 77 1 8 193/89 123.7 96 Nasal cannula 02/24 1318 95.5 60 18 163/66 98.1 98 02/24 1255 98.0 66 16 169/72 100 Nasal 2 cannula 02/24 1240 46 17 163/72 100 Nasal 2 cannula 02/24 1225 Nasal 2 cannula 1 5 1225 50 19 130/59 100 Nasal 2 cannula 02/24 1207 97.8 58 20 129/93 100 Nasal 2 cannula 02/24 0944 65 28 166/73 100 Simple 6 mask 02/24 0932 68 12 204/93 97 02/24 0845 97.6 69 18 213/88 96 Gen: Alert, oriented, in mild discomfort Neck: No Masses, No Thyromegaly-CV: Regular Rate Rhythm / Edema- no significant Resp: Clear To Ascultation / Normal Respiratory EffortABD: NonTender / NonDistended MS/Skin: No sign of compartment syndrome / +ankle DF/PF Other: Labs/X-ray: Laboratory Tests: 02/25 310 Hematology Hgb (12 - 16 g/dL) 11.5 L Hct (37 - 47 %) 34.2 L Ant Tobias M.D. at 1027 RPT #:[id number] OF REPORT CLClinical gmyy1657-54-66Y67:43:00Y.[id number] l able for patient scpdQERKHIUTZDCTRK0681-06-11X55:27:29 2022-02-24 18:30:00 [id number]:30:00 [facility])Clinical NoteREPORT#:[id number] REPORT STATUS: SignedDATE:02/24/22 TIME: 183 PATIENT: ANTHONY FONG [place]OLA UNIT #: [id number]#: [id number] [facility] [birth year] AGE: 86 SEX: M ATTEND: Arely Trevino MDA AUTHOR: Ant Hickman MD * ALL edits or amendments must be made on the electronic/computer document * Clinical NoteNote:[facility] Ant Tobias MD(cell text [phone])Internal Medicine Consult at [facility] of : Dr. Arely Trevino Chief Complaint: left knee pain HPI: 86 yo Mis now s/p Left Total Knee Arthroplasty (TKA) with spinal anesthesia and peripheral nerve block by Dr. Trevino. Mr. Fong relates years of progressive left knee pain (recently severe), worse with activity, and with restricted motion at times in quality. He has failed conservative management. Comorbidities: see below. PmHx: . Hypertension, Hypercholesterolemia, hypothyroidism, gout, anxiety, BMI 30.6 ALLERGY: Allergies:butorphanol (From STADOL) (Coded, Severe, ANAPHYLAXIS, 02/09/22)pregabalin (From LYRICA) (Coded, Severe , TINGLING OF HEAD/NECK, 02/09/22) Home Medications: Home Medications:FEBUXOSTAT (ULORIC ) 80 MG PO DAILY THYROID,PORK (ARMOUR THYROID) 90 MG PO DAILY cloNIDine 0.1 MG PO DAILY hydrALAZIN E (APRESOLINE) 50 MG PO BID LORazepam (ATIVAN) 0.5 MG PO BEDTIME PRN PRN ANXIETY CHOLECALCIFEROL (VITAMIN D3) (VITAMIN D3) 1,000 UNITS PO DAILY SgHx: . Right TKA SHx: Tob: none FHx: .No significant hx of DVT/PE.Alcohol: none Drugs: none Lives: with ..Vitals:Vital Signs: Date Time Temp Pulse Resp B/P B/P Pulse O2 O2 Flow FiO2 Mean Ox Delivery Rate 02/24 1555 96.8 73 1 8 196/82 119.6 96 Nasal cannula 02/24 1555 96.8 73 18 196/82 119.6 96 Nasal cannula 02/24 1500 97 Nasal 1 cannula 02/24 1423 Nasal 3 cannula 02/10 5 1423 97.0 77 18 193/89 123.7 96 Nasal cannula 02/24 1318 95.5 60 18 163/66 98.1 98 02/24 1255 98.0 66 16 169/72 100 Nasal 2 cannula 02/24 1240 46 17 163/72 100 Nasal 2 cannula 02/24 1225 Nasal 2 cannula 02/24 1225 50 19 130/59 100 Nasa l 2 cannula 02/24 1207 97.8 58 20 129/93 100 Nasal 2 cannula 02/24 0944 65 28 166/73 100 Simple 6 mask 02/24 0932 68 12 204/93 97 02/24 0845 97.6 69 18 213/88 96 Gen: Alert, in mild discomfort.EYE: Nl lids conjunctiva.ENT: Nl ears Nose, nl lips,. Neck: Supple, nl thyroid, No masses.CV: Regular Rate Rhythm, no heave or significant murmur. Edema- none RESP: Clear to Auscultation, normal Respiratory effort.ABD: Soft, NonDistended,.LYM: No significant cervical Lymphadenopathy.MS: No sign of compartment syndrome, knee is wrapped.NEURO: Nonfocal, grossly normal sensation of LE, +Ankle DF/PF..Preop Labs (02/09/2022): CBC:. Hgb 13, Pl t 272, CHEM: Na 136, K 4.3, Cr 1.25 (eGFR 55.4%), . Ekg: Sinus Bradycardia at 47 BPM .(medium to hig h risk of complications or morbidity) (major surgery) (IV sedative, meds).Assessment Plan1.) Anemia of Acute Blood Loss- .will recheck tomorrow. 2.) S/p Left TKA- .acute multi-modal pain control and followup. Anticoagulationas per Dr. Trevino.3.) Hypertension- .follow BP and hold Rxs if SBP<120. Relates that he refuses totry other BP medications or adjust his current dose due to prior side effects hehas experienced . He states stress reliever medication will help lower his BP.4.) OsteoArthritis Hyperlipidemia Hypothyroid- .continue on Rx.. Ant Tobias M.D. Thanks!..... G8417 BMI documented as above normal parameters and a f/u plan is [id number] - Patient screened for tobacco use AND identified as a tobacco non-[id number] - ACP discussion - default code status while at [facility]. at 2335 RPT #:[id number] OF REPORT CLClinical mbcm7133-82-39G34:30:00Y.[id number] l able for patient bfenQWREZNUBRFBWBZ2297-93-73C59:35:40 2022-02-24 11:48:00 [id number]:48:00 [facility])Operative Note - FullREPORT#:[id number] REPORT STATUS: SignedDATE:02/24/22 TIME: 1148 PATIENT: ANTHONY FONG UNIT #: [id number]#: [id number] ROOM/BED: Y998-14DOB: [birth year] AGE: 86 SEX: M ATTEND: Arely Trevino AUTHOR: Arely Trevino MD * ALL edits or amendments must be made on the electronic/computer document * Operative ReportStart date: 02/24/22art time : 1030Pre-procedure diagnosis:Left Knee OsteoarthritisPost-procedure diagnosis:Left Knee OsteoarthritisProcedures performed:Left Total Knee ArthroplastyTechnique/Procedure:Midline medial parapatellarPrimary Surgeon: Palomo Trevinoistant(s): KYLE Watkinsnesthesia: regional anesthesia, spinal anestheticOperative findings:Significant degeneration throughout the knee. Stable knee following arthroplastyComplications: noneEstimated blood loss in ml's: 25Specimens removed/altered: noneImplant(s): Depuy Sigma Femur Size 4 Tibia Size 4, Liner 10, Patella 38Tourniquet:49 minute s at 225mmhg Free Text Op NotesFree Text Op Notes:orthotics assistant: The skilled assistance of the supply chain assistant surgeon was necessary during this reconstructive procedure. They assisted wit h every aspect of the operation including, but not limited to, proper and safe positioning of the patient, obtaining adequate surgical exposure, manipulation of surgical instruments, perfect visualization of the surgical field, assistance during implant placement, manipulation of the instrumentation during implant placement, assistance during knot tying, assisting with access to each portion of the joint, assistingwith limb positioning during the procedure, incision closure, dressing placement, assistance with moving the patient off of the operating table, and assistance with patient transfer from the operating room. Their assistance allowed me to perform the most sensitive and technical portions of this operation using 2 hands, thus enhancing patient safety. This would not be possible without the help of a skilled supply chain assistant familiar with the procedure and capable of safely performing the aforementioned tasks. I am not a part of a teaching program, and thus, no surgical instruments inspector s or interns were available to assist. Indication: The patient presented to me with a longstanding history of knee degenerative joint disease. Despite nonoperative treatment, it has progresse d to the point where it has been severely debilitating. After careful discussion of the risks and benefits of the surgery, including the potential complications of deep venous thrombosis, infection, nerve or blood vessel injury, ligament injury, fracture, and incomplet e resolution of pain, the patient wished to procee d with a total knee replacement. Procedure: Prophylactic antibiotics were administered 30 minutes prior to surgery. The correct surgical site was identified and signed. The patient was brought to theOperating Room and placed on the operating table. A time-out procedure was performed by all members of the surgical team, and correct side and procedure were verified. Th e tourniquet was applied. After induction of anesthesia, the operative lower extremity was prepped and draped in the usual sterile manner. The knee was then flexed and exsanguinated. Antibiotics and tranexamic acid was administered . The tourniquet was inflated. Using a scalpel, th e skin was incised approximately 1 cm above the proximal poleof the patella and extended to the level of the tibial tubercle. The dissection was carried down to the extensor mechanism. A medial parapatellar arthrotomy wasperformed. An appropriate medial release was continued around the posteromedial aspect of the tibia and the deep insertion of the medial collateral ligament wasdissected free. The infra-patellar fat pad wa s excised. The patella was subluxedbut not everted and retracted laterally and the knee flexed to 9 0 degrees. The ACL was transected. An intramedullary drill hole was made and an intramedullary alignment guide was passed into the distal femur. Distal femoralresection was then performed at 5 degrees of anatomic valgus. The minimal amountof distal femoral resection wa s performed in order to allow for full extension o f the knee. The extramedullary tibial resection guide was fixed to the tibia with pins and the appropriate resection of the proximal portion wa s made to accommodate for flexion and extension. The cut alignment was checked with an alignment guide andblock. The extension space was checked with a block and was found to be symmetric and stable. The appropriately sized anterior-posterior cutting block was placed on the distal femur in a degree of external rotatio n that balanced the flexion space and prevented anterior notching, and was perpendicular to Charmaine s line. The epicondylar axis was also assessed. The cutting block and resected bone were removed. Care was taken to protect the medial collateral ligament. At this point the knee was flexed, and a thin bent Hohmann retractor was placed laterally. Laminar user interface designer s were placed medially and laterally sequentially to expose and assess the flexion space. The medial and lateral menisci, and posterior condylar osteophytes were excised. Flexion/extension gaps were assessed and found t o be symmetric and stable. The box cutting guide was placed onto the distal femur and box resection completed. The cutting block and resected bone were removed. The proximal tibia was prepared to accept a size appropriate sized tibial base tray. Next, the femoral trial was seated onto the distal femur. A trial insert was placed onto the tibial tray and the knee was reduced and taken through rangeof motion. The knee was stable to varus and valgus stress at 0-90 degrees. The patella was prepared to accept a button. With the trial in place, the knee was taken through range of motion. The patella was observed to track midline using the no thumbs technique. All trial components were removed. Th e trabecularsurfaces were pulse lavaged and dried. The distal femoral drill hole was graftedwith autologous bone taken from previously resected bone. Care was taken to makethe cancellous bone surfaces dry and free of bone debris. Using hand mixed cement, the real tibial baseplate tray was cemented into place followed by the femoral component. After the removal of excess cement, the polyethylene insert was locked into the tibial tray. The knee was reduced and brought into extension. At this point, the real three-pe g patellar prosthesis was cemented into place and excess cement removed. Following this, the knee was irrigated with dilute betadine. The tourniquet was deflated. Hemostasis was achieved with electrocautery. The knee was thoroughly irrigated with pulse lavage. A deep periarticula r and superficial injection was used to infuse the periarticular soft tissue. The medial parapatellar arthrotomy was repaired with interrupted #1 vicryl and a running barbed sutur e and the subcutaneous tissue repaired with interrupted 0 and 2-0 Vicryl sutures. A 3-0 monocryl subcuticular stitch was placed. The ski n was closed with adhesive. A sterile compressive dressing was applied. The patient was transferre d to the recovery room in satisfactory condition. Sponge and instrument counts were correct. Prophylactic antibiotics will be discontinued within 24 hours. I was present for all portions of the procedure. Post-operative Plan:The patien t be allowed to weight-bear as tolerated. They leandra l receive perioperative antibiotics and be started on DVT prophylaxis. An x-ray will be performed i n the recovery room. at [address] [facility] #:[id number] OF REPORT OPOperative [id number] a ilable for patient [id number] 2022-02-09 16:33:00 [id number] [place] [id number] PATIENT NAME: ANTHONY FONG ADMIT DATE: ACCOUNT NO: [id number] ROOM NO: AGE: 86 REPORT TYPE: ELECTROCARDIOGRA M SEX: M ADMITTING PHYSICIAN:Arely Trevino MD ATTENDING PHYSICIAN:Arely Trevino MD Order:[id number] Reason : PREOP CLEARANCE HTN Test Date/Time Stamp:MonFeb 09 2022 16:33:09Blood Pressure : / mmHGVent. Rate : 047 BPM Atrial Rate : 047 BPM P-R Int : 242 ms QRS Dur : 108 ms QT Int : 492 ms P-R-T Axes : 08 6 031 082 degrees QTc Int : 435 ms Marked sinus bradycardia with 1st degree AV block with premature atrialcomplexesAbnormal ECGNo previous ECGs availableConfirmed by REGULO ZAVALA MD ([id number]) on 02/10/2022 11:04:07 AM Referred By: Arely Trevino Confirmed by:REGULO ZAVALA MD PATIENT NAME : ANTHONY FONG .[id number] AVAvailable for patient [id number]
--- NOTE | 2023-02-05 08:24 | RAD REPORT ---
EXAM DESCRIPTION: CT - Ct Stroke Brain Wo Cont - 02/05/2023 8:11 am CLINICAL HISTORY: STROKE ALERT Slurred speech. Left-sided feels different COMPARISON: No comparisons TECHNIQUE: Noncontrast head CT images were obtained without IV contrast. Multiplanar reformats were generated and reviewed. All CT scans are performed using dose optimization technique as appropriate and may include automated exposure control or mA/KV adjustment according to patient size. FINDINGS: No intracranial hemorrhage, mass, or edema. Midline structures are unremarkable. Mild diffuse parenchymal atrophic changes. No hydrocephalus. Hamilton-white matter differentiation is preserved, without evidence of acute infarct. No abnormal extra- axial fluid collections. Mastoid air cells and visualized portions of the paranasal sinuses are clear. No acute bony findings. IMPRESSION: No evidence of an acute intracranial process. The findings were communicated to Shannon Tenorio on 02/05/2023 at 08:19 hours.
[2023-02-05] MEDS ORDERED: ASPIRIN 81 MG CHEWABLE TABLET ONE (08:28)
[2023-02-05 08:33] LABS: Absolute Lymphocytes (CBC) 1.9 K/uL (0.7-4.9); Hematocrit 41.4 % (39.6-49.0); Lymphocytes % 31.2 % (15.3-44.8); MCV 90.7 fL (80-100); MPV 7.7 fL (7.6-11.3); Platelets 273 thou/uL (152-406); RBC Red Blood Cell Count 4.57 M/uL (4.33-5.43)
[2023-02-05 08:52] LABS: Protime INR 0.94
[2023-02-05] MEDS ORDERED: HYDRALAZINE HCL 20 MG/ML VIAL ONE (08:55)
[2023-02-05] MEDS ORDERED: FOLIC ACID 5 MG/ML VIAL ONE (08:57)
[2023-02-05 09:02] LABS: Albumin 3.7 g/dL (3.4-5.0); Bilirubin Direct 0.1 mg/dL (0-0.2); Bilirubin Indirect, Calculated 0.4 mg/dL (0.2-0.8); Bilirubin Total 0.5 mg/dL (0.2-1.0); Thyroid Stimulating Hormone 0.963 uIU/mL (0.358-3.740); Troponin High Sensitivity 18.3 pg/mL (<58.9)
--- NOTE | 2023-02-05 09:17 | RAD REPORT ---
EXAM DESCRIPTION: Amandot Single View02/05/2023 8:56 am CLINICAL HISTORY: slurred speech COMPARISON: Chest Single View dated 09/07/2019; Chest Single View dated 09/06/2019; Chest Pa And Lat ( 2 Views) dated 05/29/2019; Chest Pa And Lat (2 Views) dated 01/03/2019 TECHNIQUE: Portable AP view of the chest. FINDINGS: The lungs are clear. No pneumothorax or effusion. The cardiomediastinal contours are unre markable. IMPRESSION: No acute cardiopulmonary process.
--- NOTE | 2023-02-05 09:40 | RAD REPORT ---
EXAM DESCRIPTION: CT - Neck Angio - 02/05/2023 8:49 am CLINICAL HISTORY: slurred speech COMPARISON: No comparisons TECHNIQUE: Axial CT angiography images of the head was performed with multiplanar and maximum intens ity projection reconstructions. Images performed following intravenous administration of 100mL Isovue 370. All CT scans are performed using dose optimization technique as appropriate and may include automated exposure control or mA/KV adjustment according to patient size. Quantification of carotid stenosis, if any, is performed according to NASCET criteria. FINDINGS: A left aortic arch is identified with normal three vessel configuration of the great vesse ls. No significant flow abnormality is seen of the common carotid bilaterally. Moderate atherosclerotic c alcifications at the carotid bulbs. No significant stenosis is identified involving the cervical segments of both internal carotid arteri es. Moderate tortuosity along the distal right cervical ICA. Normal flow is seen within both vertebral arteries. IMPRESSION: No significant flow abnormality of the neck vessels is identified. CAROTID STENOSIS REFERENCE USING NASCET CRITERIA: % ICA stenosis = (1 - narrowest ICA diameter/diameter of distal cervical ICA) x 100. Mild - <50% stenosis. Moderate - 50-69% stenosis. Severe - 70-94% stenosis. Near occlusion - 95-99% stenosis. Occluded - 100% stenosis.
--- NOTE | 2023-02-05 09:41 | RAD REPORT ---
EXAM DESCRIPTION: CT - Head angio - 02/05/2023 8:49 am CLINICAL HISTORY: SLURRED SPEECH COMPARISON: Ct Stroke Brain Wo Cont dated 02/05/2023 TECHNIQUE: Axial CT angiography images of the head was performed with multiplanar and maximum intens ity projection reconstructions. Images performed following intravenous administration of 100mL Isovue 370. All CT scans are performed using dose optimization technique as appropriate and may include automated exposure control or mA/KV adjustment according to patient size. FINDINGS: No evidence of large vessel occlusion. No evidence of aneurysm or dissection flap is detec mendoza. Short segment moderate to severe stenosis along the junction of left P1/P2 segments of the left SHEEP OR CALF GRADER. No other flow-limiting stenosis or vascular malformation identified. Antegrade flow is seen in the vertebral arteries. The vertebral arteries are codominant. The visualized dural venous sinuses are grossly patent. 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 No evidence of large vessel occlusion. No other flow-limiting stenosis. The findings were communicated to Shannon Tenorio on 02/05/2023 at 09:37 hours.
--- NOTE | 2023-02-05 09:43 | EDPHYS ---
Physician Documentation [facility] Name: Camron Fong Age: 87 yrs Sex: Male : 1935 Arrival Date: 02/05/2023 Time: 07:57 Bed 6 Private MD: ED Physician Tiago Tucker HPI: 02/05 08:13 This 87 yrs old Male presents to ER via Ambulatory with complaints of Left SIde snw Bothering Him, Slurred Speech. 08:13 The patient's problem is reported as a facial droop, on left, paresthesias, in left snw upper extremity, in left lower extremity. Onset: The symptoms/episode began/occurred acutely, at 02:00. Duration: The episode is continuous. Context: symptoms became apparent getting to or returning from bathroom at 0200. Severity of symptoms: At their worst the symptoms were moderate severe. It is unknown whether or not the patient has recently seen a physician, sees Dr. Sanches. Historical: - Allergies: 08:06 Beta-Blockers (Beta-Adrenergic Bloc; ll1 08:06 Allopurinol; ll1 08:06 Lyrica; ll1 08:06 Stadol; ll1 - PMHx: 08:06 High Cholesterol; Hypertension; Thyroid problem; ll1 - Immunization history:: Adult Immunizations up to date. - Social history:: Smoking status: Patient denies any tobacco usage or history of. ROS: 08:11 Constitutional: Negative for fever, chills, and weight loss, Eyes: Negative for injury, snw pain, redness, and discharge, 08:11 Neck: Negative for injury, pain, and swelling, Cardiovascular: Negative for chest pain, palpitations, and edema, Respiratory: Negative for shortness of breath, cough, wheezing, and pleuritic chest pain, Abdomen/GI: Negative for abdominal pain, nausea, vomiting, diarrhea, and constipation, Back: Negative for injury and pain, : Negative for injury, bleeding, discharge, and swelling, Skin: Negative for injury, rash, and discoloration, 08:11 Psych: Negative for depression, anxiety, suicide ideation, homicidal ideation, and hallucinations, 08:11 ENT: Positive for slurred speech, left facial droop, 08:11 MS/extremity: Positive for left sided paresthesias, 08:11 Neuro: Positive for speech changes, weakness, of the left mormon, left zygomatic area, left cheek and left mandible, left extremity paresthesias, weakness, Exam: 08:08 Constitutional: This is a well developed, well nourished patient who is awake, alert, snw and in no acute distress. 08:08 Eyes: Pupils equal round and reactive to light, extra-ocular motions intact. Lids and lashes normal. Conjunctiva and sclera are non-icteric and not injected. Cornea within normal limits. Periorbital areas with no swelling, redness, or edema. 08:08 Neck: Trachea midline, no thyromegaly or masses palpated, and no cervical lymphadenopathy. Supple, full range of motion without nuchal rigidity, or vertebral point tenderness. No Meningismus. Chest/axilla: Normal chest wall appearance and motion. Nontender with no deformity. No lesions are appreciated. Cardiovascular: Regular rate and rhythm with a normal S1 and S2. No gallops, murmurs, or rubs. Normal PMI, no JVD. No pulse deficits. Respiratory: Lungs have equal breath sounds bilaterally, clear to auscultation and percussion. No rales, rhonchi or wheezes noted. No increased work of breathing, no retractions or nasal flaring. Abdomen/GI: Soft, non-tender, with normal bowel sounds. No distension or tympany. No guarding or rebound. No evidence of tenderness throughout. Back: No spinal tenderness. No costovertebral tenderness. Full range of motion. Skin: Warm, dry with normal turgor. Normal color with no rashes, no lesions, and no evidence of cellulitis. MS/ Extremity: Pulses equal, no cyanosis. Neurovascular intact. Full, normal range of motion. Psych: Awake, alert, with orientation to person, place and time. Behavior, mood, and affect are within normal limits. 08:08 Head/face: Noted is left sided facial droop. 08:08 ENT: Mouth: left sided facial droop resulting in slurred speech, 08:08 Neuro: Orientation: is normal, Mentation: is normal, Memory: is normal, Cerebellar function: is grossly normal, Motor: is normal, Gait: is steady, seizure activity, is not displayed by the patient, Abnormal movements: there are no abnormal movements, 09:43 Radiologist reports: No large vessel thrombus but moderate to severe stenosis of short snw segment Vital Signs: 08:07 Pulse 82; Resp 17; Pulse Ox 97% ; Weight 88.45 kg; Height 5 ft. 9 in. ; ll1 08:15 BP 216 / 82; Pulse 60; Resp 18; Pulse Ox 96% on R/A; db 08:30 BP 196 / 78; Pulse 62; Resp 18; Pulse Ox 96% on R/A; db 08:52 BP 216 / 81; Pulse 60; Resp 18; Pulse Ox 96% ; db 09:00 BP 203 / 75; Pulse 61; Resp 18; Pulse Ox 96% on R/A; db 12:31 BP 170 / 65; Pulse 63; Resp 18; Pulse Ox 98% on R/A; ph 08:07 Body Mass Index 28.80 (88.45 kg, 175.26 cm) ll1 NIH Stroke Scale Scores: 08:08 NIHSS Score: 4 snw 08:20 NIHSS Score: 2 db Monroe Coma Score: 08:08 Eye Response: spontaneous(4). Motor Response: obeys commands(6). Verbal Response: snw oriented(5). Total: 15. 08:33 Eye Response: spontaneous(4). Motor Response: obeys commands(6). Verbal Response: db oriented(5). Total: 15. MDM: 08:12 Patient medically screened. krystal 09:39 Differential diagnosis: CVA, TIA, metabolic disorder. Data reviewed: vital signs, snw nurses notes, lab test result(s), EKG, radiologic studies. I considered the following discharge prescriptions or medication management in the emergency department pt declines hydralazine. Historians other than the Patient: Spouse/Significant Other: . Care significantly affected by the following chronic conditions: Hypertension, thyroid dysfunction. Counseling: I had a detailed discussion with the patient and/or guardian regarding the historical points, exam findings, and any diagnostic results supporting the discharge/admit diagnosis, lab results, radiology results, the need for further work-up and treatment in the hospital. 09:41 Management of patient was discussed with the following: Hospitalist: Discussed with [facility] Hospitalist group. 02/05 08:00 Order name: Basic Metabolic Panel; Complete Time: 09:18 snw 02/05 08:00 Order name: CBC with Diff; Complete Time: 08:37 [facility] 02/05 08:00 Order name: Hepatic Function; Complete Time: 09:18 snw 02/05 08:00 Order name: High Sensitivity Troponin; Complete Time: 09:18 snw 02/05 08:00 Order name: Magnesium; Complete Time: 09:18 snw 02/05 08:00 Order name: Protime (+inr); Complete Time: 09:18 snw 02/05 08:00 Order name: Ptt, Activated; Complete Time: 09:18 snw 02/05 08:32 Order name: Thyroid Stimulating Hormone; Complete Time: 09:18 EDMS 02/05 08:42 Order name: Glucose, Ancillary Testing; Complete Time: 08:52 EDMS 02/05 08:00 Order name: CT Stroke Brain w/o Contrast; Complete Time: 08:24 snw 02/05 08:39 Interpretation: per Dr. Romano; CT angio head and neck pending. snw 02/05 08:00 Order name: Stroke CXR 1 View; Complete Time: 09:18 snw 02/05 08:23 Order name: CT Head Angio; Complete Time: 09:44 snw 02/05 08:23 Order name: CT Neck Angio; Complete Time: 09:44 snw 02/05 08:00 Order name: EKG; Complete Time: 08:01 snw 02/05 08:00 Order name: Accucheck; Complete Time: 08:30 snw 02/05 08:00 Order name: Cardiac monitoring; Complete Time: 08: snw 02/05 08:00 Order name: EKG - Nurse/Tech; Complete Time: 08:30 snw 02/05 08:00 Order name: IV Saline Lock; Complete Time: 08: snw 02/05 08:00 Order name: Labs collected and sent; Complete Time: 08: snw 02/05 08:00 Order name: NPO; Complete Time: 08: snw 02/05 08:00 Order name: O2 Per Protocol; Complete Time: 08: snw 02/05 08:00 Order name: O2 Sat Monitoring; Complete Time: 08: snw 02/05 08:00 Order name: Stroke Swallow Screen; Complete Time: 08:32 snw EC:27 Rate is 60 beats/min. Rhythm is regular. DE interval is prolonged. Q waves are Present snw in leads V3, V4. Clinical impression: NSR w/ Non-specific ST/T Changes and 1st degree heart block. Administered Medications: 08:25 Drug: Aspirin PO 81 mg PO once Route: PO; db 08:56 Drug: foLIC Acid IVPB 1 mg IVPB once Route: IVPB; Site: right antecubital; db 09:01 Not Given (Patient Refused): [id number] mg IVP once db Point of Care Testing: Blood Glucose: 08:42 Blood Glucose: 91 mg/dL; db Ranges: Critical Glucose Levels:Adult <50 mg/dl or >400 mg/dl <40 mg/dl or >180 mg/dl Disposition Summary: 02/05/23 09:43 Hospitalization Ordered Notes: Hospitalization Status: Inpatient Admission snw Provider: Rickey Petersen Condition: Stable snw Problem: new snw Symptoms: are unchanged snw Bed/Room Type: Standard snw Location: Telemetry/MedSurg (Inpatient)(02/05/23 15:36) ja Room Assignment: [facility](02/05/23 15:36) [facility] Diagnosis - 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 Dysarthria (speech clarity - read or repeat words) - 1(Mild to Moderate) 11. Extinction and Inattention (visual/tactile/auditory/spatial/personal) - 0(No abnormality) 1a. Level of Consciousness (LOC) - 0(Alert) 1b. Level of Consciousness (LOC) (Month \T\ Age) - 0(Both) 1c. LOC Commands (Open \T\ Closes Eyes/Manager Corporate Responsibility) - 0(Both) 2. Best Gaze (Lateral Gaze Paresis) - 0(Normal) 3. Visual Field Loss - 0(No visual loss) 4. Facial Palsy - 2(Partial paralysis) 5a. Left Arm: Motor (10-second hold) - 0(No drift) 5b. Right Arm: Motor (10-second hold) - 0(No drift) 6a. Left Leg: Motor (5-second hold - always test supine) - 0(No drift) 6b. Right Leg: Motor (5-second hold - always test supine) - 0(No drift) 7. Limb Ataxia (finger/nose \T\ heel/mathis - test with eyes open) - 0(Absent) 8. Sensory Loss (pinprick arms/legs/face) - 0(Normal) 9. Best Language: Aphasia (description/naming/reading) - 1(Mild to moderate aphasia) Initials: [facility] NIH Stroke Scale - NIH Stroke Score Date: 02/05/2023 Time: 08:20 Total Score = 2 10. Dysarthria (speech clarity - read or repeat words) - 0(Normal) 11. Extinction and Inattention (visual/tactile/auditory/spatial/personal) - 0(No abnormality) 1a. Level of Consciousness (LOC) - 0(Alert) 1b. Level of Consciousness (LOC) (Month \T\ Age) - 0(Both) 1c. LOC Commands (Open \T\ Closes Eyes/Manager Corporate Responsibility) - 0(Both) 2. Best Gaze (Lateral Gaze Paresis) - 0(Normal) 3. Visual Field Loss - 0(No visual loss) 4. Facial Palsy - 2(Partial paralysis) 5a. Left Arm: Motor (10-second hold) - 0(No drift) 5b. Right Arm: Motor (10-second hold) - 0(No drift) 6a. Left Leg: Motor (5-second hold - always test supine) - 0(No drift) 6b. Right Leg: Motor (5-second hold - always test supine) - 0(No drift) 7. Limb Ataxia (finger/nose \T\ heel/mathis - test with eyes open) - 0(Absent) 8. Sensory Loss (pinprick arms/legs/face) - 0(Normal) 9. Best Language: Aphasia (description/naming/reading) - 0(No aphasia) Initials: db Signatures: Dispatcher [employer] EDMS Tiago Tucker MD MD cha Waters, Shelly, HAND BOBBIN CLEANER-C HAND BOBBIN CLEANER-Csnw Leatha Avila Jose, RN RN ja1 Chi Farmer, RN RN ll1 Kaycee Zaragoza, RN RN db Corrections: (The following items were deleted from the chart) 08:32 08:15 THYROID STIMULAT HORMONE+C.LAB.BRZ ordered. EDMS EDMS 08:38 08:37 No acute disease: per Dr. Romano. sn snw 08:39 08:38 No acute disease: per Dr. Romano; CT angio head and neck pending. [facility] snw 11:35 09:43 Telemetry/MedSurg (Inpatient) [facility] sp 11:35 09:43 [facility] sp 15:36 11:35 [facility] ER HOLD sp ja1 15:36 11:35 ERHOLD- sp ja1
--- NOTE | 2023-02-05 09:43 | ER ---
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 Started to have ll1 slurred speech, facial droop, felt off balanced when walking. Coronavirus screen: Client denies travel out of the [place] in the last 14 days. At this time, the client does not indicate any symptoms associated with coronavirus-19. Ebola Screen: Patient denies travel to an Ebola-affected area in the 21 days before illness onset. An acute neurological deficit is present. The charge nurse has been notified. Initial Sepsis Screen: Does the patient meet any 2 criteria? No. Patient's initial sepsis screen is negative. Does the patient have a suspected source of infection? No. Patient's initial sepsis screen is negative. Risk Assessment: Do you want to hurt yourself or someone else? Patient reports no desire to harm self or others. Onset of symptoms was February 05, 2023 at 02:00. 08:07 Method Of Arrival: Ambulatory ll1 08:07 Acuity: JESSICA 2 ll1 Triage Assessment: 08:10 The onset of the patients symptoms was more than six hours ago. General: Appears in no ll1 apparent distress. Behavior is calm, cooperative, appropriate for age. Pain: Denies pain. Neuro: Reports numbness in left arm slight slurred speech with facial droop. Musculoskeletal: Reports numbness in left arm. Stroke Activation: Symptom onset > 6 hours Physician: Stroke Attending; Name: ; Notified At: ; Arrived At: Physician: Chief Stroke Resident; Name: ; Notified At: ; Arrived At: Physician: Stroke Resident; Name: ; Notified At: ; Arrived At: Physician: ED Attending; Name: ; Notified At: ; Arrived At: Physician: ED Resident; Name: ; Notified At: ; Arrived At: Historical: - Allergies: 08:06 Beta-Blockers (Beta-Adrenergic Bloc; ll1 08:06 Allopurinol; ll1 08:06 Lyrica; ll1 08:06 Stadol; ll1 - PMHx: 08:06 High Cholesterol; Hypertension; Thyroid problem; ll1 - Immunization history:: Adult Immunizations up to date. - Social history:: Smoking status: Patient denies any tobacco usage or history of. Screenin:33 [facility] ED Fall Risk Assessment (Adult) History of falling in the last 3 months, db including since admission No falls in past 3 months (0 pts) Confusion or Disorientation No (0 pts) Intoxicated or Sedated No (0 pts) Impaired Gait No (0 pts) Mobility Assist Device Used No (0 pt) Altered Elimination No (0 pt) Score/Fall Risk Level 0 - 2 = Low Risk Oriented to surroundings, Maintained a safe environment. Abuse screen: Denies threats or abuse. Denies injuries from another. Nutritional screening: No deficits noted. Tuberculosis screening: No symptoms or risk factors identified. Assessment: 08:15 Reassessment: CALLED PHARMACY FOR FOLIC ACID TO BE SENT DOWN TO ER. ER PYXIS OUT OF db MEDICATION. 08:20 VAN Scoring: Arm Drift: Patients demonstrates NO arm weakness. Patient is VAN Negative. db Visual Disturbance: No visual disturbance noted. Aphasia: No aphasia noted. Neglect: No neglect noted. [place] Swallow Protocol Brief Cognitive Screen What is your name? Normal, Where are you right now? Normal, What year is it? Normal. Oral Mechanism Examination Facial Symmetry: Normal, Motion: Normal, Lip Closure: Normal, Oral Mechanism Result: Normal. 3 oz Water Swallow Challenge: Pt able to drink all water without stopping, coughing, choking or throat clearing: Yes Result: PASS. TNKase (Tenecteplase) Screening: Indications:. Reassessment: Patient appears in no apparent distress at this time. Patient and/or family updated on plan of care and expected duration. Pain level reassessed. Patient is alert, oriented x 3, equal unlabored respirations, skin warm/dry/pink. General: Appears in no apparent distress. comfortable, Behavior is calm, cooperative. Pain: Complains of pain in face. Neuro: Level of Consciousness is awake, alert, obeys commands, Oriented to person, place, time, situation, Appropriate for age Speech is slurred. Cardiovascular: No deficits noted. Respiratory: Airway is patent Respiratory effort is even, unlabored, Respiratory pattern is regular, symmetrical. GI: No deficits noted. No signs and/or symptoms were reported involving the gastrointestinal system. : No deficits noted. No signs and/or symptoms were reported regarding the genitourinary system. 08:44 Reassessment: PT IS IN CT FOR 2ND CT. db 08:54 Reassessment: PT RETURNED TO ROOM FROM RADIOLOGY. db 11:30 Reassessment: Patient appears in no apparent distress at this time. Patient and/or hb family updated on plan of care and expected duration. Pain level reassessed. Patient is alert, oriented x 3, equal unlabored respirations, skin warm/dry/pink. Vital Signs: 08:07 Pulse 82; Resp 17; Pulse Ox 97% ; Weight 88.45 kg; Height 5 ft. 9 in. ; ll1 08:15 BP 216 / 82; Pulse 60; Resp 18; Pulse Ox 96% on R/A; db 08:30 BP 196 / 78; Pulse 62; Resp 18; Pulse Ox 96% on R/A; db 08:52 BP 216 / 81; Pulse 60; Resp 18; Pulse Ox 96% ; db 09:00 BP 203 / 75; Pulse 61; Resp 18; Pulse Ox 96% on R/A; db 12:31 BP 170 / 65; Pulse 63; Resp 18; Pulse Ox 98% on R/A; ph 08:07 Body Mass Index 28.80 (88.45 kg, 175.26 cm) ll1 Rachele Coma Score: 08:08 Eye Response: spontaneous(4). Motor Response: obeys commands(6). Verbal Response: snw oriented(5). Total: 15. 08:33 Eye Response: spontaneous(4). Motor Response: obeys commands(6). Verbal Response: db oriented(5). Total: 15. NIH Stroke Scale Scores: 08:08 NIHSS Score: 4 snw 08:20 NIHSS Score: 2 db ED Course: 07:58 Patient arrived in ED. mg5 08:00 Shannon Tenorio FNP-C [facility]. snw 08:00 Tiago Tucker MD is Attending Physician. snw 08:04 Kaycee Zaragoza, ROSALIA is Primary Nurse. db 08:06 Arm band placed on Patient placed in an exam room, on a stretcher. ll1 08:10 Triage completed. ll1 08:13 CT Stroke Brain w/o Contrast In Process Unspecified. EDMS 08:20 Warm blanket given. db 08:26 Inserted saline lock: 20 gauge in right antecubital area, using aseptic technique. ls5 Blood collected. 08:38 Patient has correct armband on for positive identification. Bed in low position. Call db light in reach. Side rails up X 1. Client placed on continuous cardiac and pulse oximetry monitoring. NIBP monitoring applied. 08:50 CT Head Angio In Process Unspecified. EDMS 08:50 CT Neck Angio In Process Unspecified. EDMS 08:57 Stroke CXR 1 View In Process Unspecified. EDMS 09:42 Rickey Petersen MD is Hospitalizing Provider. snw 12:44 No provider procedures requiring assistance completed. Patient admitted, IV remains in hb place. Administered Medications: 08:25 Drug: Aspirin PO 81 mg PO once Route: PO; db 08:56 Drug: foLIC Acid IVPB 1 mg IVPB once Route: IVPB; Site: right antecubital; db 09:01 Not Given (Patient Refused): [id number] mg IVP once db Medication: 08:33 VIS not applicable for this client. db Point of Care Testing: Blood Glucose: 08:42 Blood Glucose: 91 mg/dL; db Ranges: Outcome: 09:43 Decision to Hospitalize by Provider. snw 12:43 Admitted to ER Hold. [facility]. hb 12:43 Condition: stable 12:43 Instructed on the need for admit, Demonstrated understanding of instructions, 16:47 Patient left the ED. NIH Stroke Scale - NIH Stroke Score Date: 02/05/2023 Time: 08:08 Total Score = 4 10. Dysarthria (speech clarity - read or repeat words) - 1(Mild to Moderate) 11. Extinction and Inattention (visual/tactile/auditory/spatial/personal) - 0(No abnormality) 1a. Level of Consciousness (LOC) - 0(Alert) 1b. Level of Consciousness (LOC) (Month \T\ Age) - 0(Both) 1c. LOC Commands (Open \T\ Closes Eyes/Torch Heater) - 0(Both) 2. Best Gaze (Lateral Gaze Paresis) - 0(Normal) 3. Visual Field Loss - 0(No visual loss) 4. Facial Palsy - 2(Partial paralysis) 5a. Left Arm: Motor (10-second hold) - 0(No drift) 5b. Right Arm: Motor (10-second hold) - 0(No drift) 6a. Left Leg: Motor (5-second hold - always test supine) - 0(No drift) 6b. Right Leg: Motor (5-second hold - always test supine) - 0(No drift) 7. Limb Ataxia (finger/nose \T\ heel/mathis - test with eyes open) - 0(Absent) 8. Sensory Loss (pinprick arms/legs/face) - 0(Normal) 9. Best Language: Aphasia (description/naming/reading) - 1(Mild to moderate aphasia) Initials: [facility] NIH Stroke Scale - NIH Stroke Score Date: 02/05/2023 Time: 08:20 Total Score = 2 10. Dysarthria (speech clarity - read or repeat words) - 0(Normal) 11. Extinction and Inattention (visual/tactile/auditory/spatial/personal) - 0(No abnormality) 1a. Level of Consciousness (LOC) - 0(Alert) 1b. Level of Consciousness (LOC) (Month \T\ Age) - 0(Both) 1c. LOC Commands (Open \T\ Closes Eyes/Torch Heater) - 0(Both) 2. Best Gaze (Lateral Gaze Paresis) - 0(Normal) 3. Visual Field Loss - 0(No visual loss) 4. Facial Palsy - 2(Partial paralysis) 5a. Left Arm: Motor (10-second hold) - 0(No drift) 5b. Right Arm: Motor (10-second hold) - 0(No drift) 6a. Left Leg: Motor (5-second hold - always test supine) - 0(No drift) 6b. Right Leg: Motor (5-second hold - always test supine) - 0(No drift) 7. Limb Ataxia (finger/nose \T\ heel/mathis - test with eyes open) - 0(Absent) 8. Sensory Loss (pinprick arms/legs/face) - 0(Normal) 9. Best Language: Aphasia (description/naming/reading) - 0(No aphasia) Initials: db Signatures: Dispatcher [employer] EDMS Shannon Tenorio, ARON-C TRAVELING OPERATOR-Csnw Sarah Robles RN RN Anna Hay, RN RN Chi Farmer RN RN [facility] Kaycee Zaragoza RN RN db Saroj Mcqueen ls5 Norma Jeronimo mg5
[2023-02-05] MEDS ORDERED: ACETAMINOPHEN 500 MG TAB PO PRN (12:49)
[2023-02-05] MEDS ORDERED: ONDANSETRON 4 MG/2 ML VIAL IV PRN (12:49)
[2023-02-05 13:11] VITALS: BMI 28.8
--- NOTE | 2023-02-05 13:44 | P.HP ---
Certification for Inpatient Patient admitted to: Observation With expected LOS: <2 Midnights Patient will require the following post-hospital care: None Practitioner: I am a practitioner with admitting privileges, knowledge of patient current condition, hospital course, and medical plan of care. Services: Services provided to patient in accordance with Admission requirements found in Title 42 Section 412.3 of the Code of Federal Regulations Patient History Date of Service: 02/05/23 Reason for admission: Left-sided facial droop, dysarthria History of Present Illness: 87-year-old male with history of hypertension, hyperlipidemia, hypothyroidism presents to the emergency department with chief complaint of slurred speech, left-sided facial droop. He went to bed around 2200 on 02/04/2023 without any neurological deficits, woke around 2 AM with abnormal sensation to his left arm. When he woke up this morning he noticed he was having slurred speech left-sided facial droop and felt less sure if his footing when walking. Patient was evaluated the emergency department labs were unremarkable, CT of the head without contrast was negative for acute findings chest x-ray negative for acute findings CTA of the neck without significant flow abnormality, CTA of the head demonstrated short segment moderate to severe stenosis along the junction of the P1/P2 segment of the left CUSTOM GARMENT DESIGNER, no evidence of large vessel occlusion or other flow-limiting stenosis. NIH score is currently 2, patient is hypertensive, history of hypertension reports baseline blood pressure between 150 and 180 systolic, reports he has tried many different blood pressure medications with his PCP Dr. Sanches for the past 10 years and only hydralazine works for him with a max dose of 50 mg twice a day. Blood pressure currently between 180 and 190 systolic. Allergies allopurinol Allergy (Verified 09/17/21 08:35) Nausea/Vomiting butorphanol [From Stadol] Allergy (Verified 09/17/21 08:35) Shortness of breath pregabalin [From Lyrica] Allergy (Verified 09/17/21 08:35) Hives/Rash Beta-Blockers (Beta-Adrenergic Bloc Adverse Reaction (Verified 09/17/21 08:35) Nausea/Vomiting levothyroxine sodium [From Synthroid] Adverse Reaction (Verified 09/17/21 08:35) Nausea/Vomiting Npeeyxq-QHC-IaN Reductase Inhibitor [Ohofwbx-Dka-Qls Reductase Inhibitor] Ad verse Reaction (Verified 09/17/21 08:35) Nausea/Vomiting zolpidem [From Ambien] Adverse Reaction (Verified 09/17/21 08:35) Nausea/Vomiting Home Medications: Febuxostat [Uloric] 80 mg PO DAILY 07/10/15 Thyroid Tab [[place] Thyroid*] 90 mg PO [id number] 07/10/15 Hydralazine HCl 25 mg PO BID 04/14/17 - Past Medical/Surgical History Has patient received pneumonia vaccine in the past: Yes Diabetic: No -: HTN -: hyperlipidema -: nerve problems in groin from [place] -: hypothyroidism -: gout -: Bilateral knee replacements - Family History Mother -: Cancer - Social History Alcohol use: No CD- Drugs: No Caffeine use: Yes Place of Residence: Home Review of Systems 10-point ROS is otherwise unremarkable Neurological: Other (Facial droop, slurred speech), As per HPI Physical Examination - Physical Exam General: Alert, In no apparent distress, Oriented x3 HEENT: Atraumatic, PERRLA Neck: Supple Respiratory: Clear to auscultation bilaterally, Normal air movement Cardiovascular: Regular rate/rhythm, Normal S1 S2 Gastrointestinal: Normal bowel sounds Musculoskeletal: No tenderness Integumentary: No rashes Neurological: Normal gait, Normal speech, Normal strength at 5/5 x4 extr, Normal tone, Sensation intact, Normal affect, Other (NIH 2), Abnormal speech (Mild dysarthria, left-sided facial droop) - Studies Laboratory Data (last 24 hrs) 02/05/23 02/05/23 02/05/23 08:24 08:24 08:24 WBC 6.00 Hgb 13.8 Hct 41.4 Plt Count 273 PT 10.3 INR 0.94 APTT 31.9 Sodium 138 Potassium 4.0 BUN 21 H Creatinine 1.10 Glucose 98 Magnesium 2.0 Total Bilirubin 0.5 AST 24 ALT 18 Alkaline Phosphatase 91 Assessment and Plan - Plan Assessment: Left-sided facial droop, dysarthria-evaluate for ischemic CVA Hypertension Hypothyroidism Plan: Left-sided facial droop, dysarthria-evaluate for ischemic CVA CT head negative for acute findings CT angio head shows short segment moderate to severe stenosis along the junction of the P1/P2 segment of the left CUSTOM G[employer] DES[employer]ER CT angio neck negative for stenosis Echocardiogram and MRI ordered Passed swallow screen NIH score is 2-mild dysarthria, left-sided facial droop Discussed with neurology continue with aspirin, Plavix, statin, folic acid Would benefit with further outpatient evaluation of severe stenosis of left CUSTOM GARMENT DESIGNER- possible four-vessel angiogram outpatient PT/OT/speech therapy consults in place Hypertension Allow for permissive hypertension Continue hydralazine 50 mg by mouth twice daily Pt reports difficulty with "all" other anti-hypertensives especially beta blockers Hypothyroidism Continue home medication Thyroid panel in the morning DVT PPX: Lovenox Code status: Full Discharge Plan: Home Plan to discharge in: 24 Hours - Advance Directives Does patient have a Living Will: No Does patient have a Durable POA for Healthcare: No - Code Status/Comfort Care Code Status Assessed: Yes (Full code) Critical Care: No Time Spent Managing Pts Care (In Minutes): 70
[2023-02-05 17:00] VITALS: O2SAT 98
[2023-02-05] MEDS: HYDRALAZINE HCL 25 MG TABLET PO SCH (20:24)
[2023-02-05] MEDS ORDERED: ATORVASTATIN 40 MG TAB PO SCH (21:00)
[2023-02-06 06:33] LABS: Absolute Lymphocytes (CBC) 1.9 K/uL (0.7-4.9); Hematocrit 38.4 % (39.6-49.0); MPV 8.3 fL (7.6-11.3); Platelets 300 thou/uL (152-406); RBC Red Blood Cell Count 4.23 M/uL (4.33-5.43)
[2023-02-06 07:01] LABS: Potassium 3.9 mEq/L (3.5-5.1); Thyroid Stimulating Hormone 0.866 uIU/mL (0.358-3.740)
[2023-02-06] MEDS ORDERED: ENOXAPARIN 40 MG/0.4 ML SQ SCH (09:00)
[2023-02-06] MEDS ORDERED: ASPIRIN EC 81 MG TAB PO SCH (09:00)
[2023-02-06] MEDS ORDERED: FOLIC ACID 1 MG TABLET PO SCH (09:00)
[2023-02-06] MEDS ORDERED: CLOPIDOGREL 75 MG TABLET PO SCH (09:00)
[2023-02-06] MEDS: HYDRALAZINE HCL 25 MG TABLET PO SCH (09:38)
--- NOTE | 2023-02-06 11:37 | RAD REPORT ---
EXAM DESCRIPTION: MRI - Brain Wo Cont - 02/06/2023 9:30 am CLINICAL HISTORY: left facial droop, slurred speech Headache, drowsiness, CVA symptomology COMPARISON: Head angio dated 02/05/2023 TECHNIQUE: Multi-sequence, multiplanar MR imaging of the brain was performed without contrast. FINDINGS: No intracranial hemorrhage, hydrocephalus or extra-axial fluid collections.Mild to moderat e periventricular and deep white matter chronic microvascular ischemic changes. No edema or shift of midline structures. No findings to suspect brain mass. There is 11 mm area of restricted diffusion ri ght basal ganglia compatible with acute CVA. Midline structures are normally formed. Mastoid air cells and paranasal sinuses are clear. IMPRESSION: 11 mm acute right lacunar CVA is present. No hemorrhage, hydrocephalus or midline shift evident.
[2023-02-06 12:36] VITALS: BP 145/86; TEMP 97.4
[2023-02-06] MEDS ORDERED: GABAPENTIN 100 MG CAP PO SCH (21:00)
[2023-02-06] MEDS ORDERED: FEBUXOSTAT 80 MG PO SCH (21:00)
--- NOTE | 2023-02-09 15:33 | EKG ---
Test Date: 2023-02-05 Test Time: 08:27:58 Video Production Assistant: MANJEET MEASUREMENT RESULTS: Intervals: Rate: 62 OK: 240 QRSD: 108 QT: 430 QTc: 436 [place]: P: 85 OK: 240 QRS: 19 T: 81 INTERPRETIVE STATEMENTS: Sinus rhythm with 1st degree AV block Anterior infarct, age undetermined Abnormal ECG Compared to ECG 09/07/2019 04:00:48 First degree AV block now present Myocardial infarct finding now present Sinus bradycardia no longer present Electronically Signed On 02-09-23 15:18:05 SUBSTANCE ABUSE SERVICES DIRECTOR by Balaji Crump
== END 2023-02-06 15:20 | disposition home or self-care (01) ==
LOC: ER 07:57 → ERHOLD 11:26 → 2ND 16:19
PROVIDERS: ADMIT Hospitalist; ATTEND Hospitalist
DX: I63.9 Cerebral infarction, unspecified (principal); I66.22 Occlusion and stenosis of left posterior cerebral artery; R29.704 NIHSS score 4; R29.810 Facial weakness; R47.81 Slurred speech; R47.1 Dysarthria and anarthria; I10 Essential (primary) hypertension; E78.5 Hyperlipidemia, unspecified; E03.9 Hypothyroidism, unspecified; Z88.8 Allergy status to other drugs, medicaments and biological substances
CPT/HCPCS: 93005; 85025 ×2; 80048 ×2; 36415; 83735; 85610; 80061; 82947; 80076; 85730; 84443 ×2; 84484; 70496; 70498; 70450; 71045; 70551; 97110; 92610; 97112; 97116; 97161; 96374; 99285; Q9967; J1650; G0378 ×4; J0360

== ENCOUNTER 2023-04-10 11:59 | Observation (INO) | payer OTHER ==
--- OUTSIDE RECORDS SUMMARY | 2023-04-10 12:04 | XMS REPORT | Continuity of Care Document ---
Author Name Unknown Address [address] [facility] [place] [address] [facility] thconnect Address [address] [facility] [place] [address] Care Team Providers Care Loftsman/Woman Name Role Phone Myles Sanches Attending Clinician Unavailable Pilar Attending Clinician UnavailVincent Sultana Attending Clinician Unavailab Arely Dean Attending Clinician Unavailclifford Quezada Admitting Clinician UnavailArely Cabrera Admitting Clinician Unavailclifford samayoa KNOW, DOES_NOT Admitting Clinician Unavailable Payers Payer Name Policy Type Policy Number Effective Date Expirati on Date Source [employer] (MEDICARE REPLACEMENT PPO) [id number] 2021 00:00:00 Problems Condition Name Condition Details Condition Category Status Onset Date Resolution Date Last Treatment Date Treating Clinician Comments Source 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 Active 3-21 00:00: 00 [facility] Aftercare Aftercare Problem Active 2021-03 2-14 00:00: 00 [facility] Osteoarthr itis of left knee joint Osteoarthr itis of Left Knee Joint Problem Active 2021-03 0-10 00:00: 00 [facility] Pain of left knee joint Pain of Left Knee Joint Problem Active 2021-03 0-06 00:00: 00 [facility] Knee pain Knee Pain Problem Active 06-21 00:00: 00 [facility] Knee joint ankylosis Knee Joint Ankylosis Problem Active 04-08 00:00: 00 [facility] 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 pregabal in DA Active SV TINGLING OF HEAD/NECK 2021-03 00:00: 00 [facility] butorpha nol DA Active SV ANAPHYLAXIS 2012-03 00:00: 00 [facility] pregabal in DA Active SV TINGLING OF HEAD/NECK 2012-03 00:00: 00 [facility] STADOL Allergy to substanc e Active 2012-03 00:00: 00 [facility] Lyrica Allergy to substanc e Active 2012-03 00:00: 00 [facility] Social History Smoking Status Start Date Stop Date Source Former Smoker [facility] Medications Ordered Medication Name Filled Medication Name Start Date Stop Date Current Medication? Ordering Clinician Indication Dosage Frequency Signature (SIG) Comments Components Source Mobic 15 mg tablet take 1 tablet one time a day with food for 7days Mobic 15 mg tablet take 1 tablet one time a day with food for 7days 06-21 00:00: 00 No Mobic 15 mg tablet take 1 tablet one time a day with food for 7days [facility] Mobic 15 mg tablet take 1 tablet one time a day with food for 7days Mobic 15 mg tablet take 1 tablet one time a day with food for 7days 4-11 00:00: 00 No Mobic 15 mg tablet take 1 tablet one time a day with food for 7days [facility] Mobic 15 mg tablet take 1 tablet one time a day with food for 7d Mobic 15 mg tablet take 1 tablet one time a day with food for 7days 06-21 00:00: 00 No Mobic 15 mg tablet take 1 tablet one time a day with food for 7days [facility] Mobic 15 mg tablet take 1 tablet one time a day with food for 7d Mobic 15 mg tablet take 1 tablet one time a day with food for 7d06-21 00:00: 00 No Mobic 15 mg tablet take 1 tablet one time a day with food for 7days [facility] Mobic 15 mg tablet take 1 tablet one time a day with food for 7d Mobic 15 mg tablet take 1 tablet one time a day with food for 06-21 00:00: 00 No Mobic 15 mg tablet take 1 tablet one time a day with food for 7days [facility] [place] 7.5 mg-325 mg tablet take one tablet every 6 hrs prn pain [place] 7.5 mg-325 mg tablet take one tablet every 6 hrs prn pain 03-22 00:00: 00 No [place] 7.5 mg-325 mg tablet take one tablet every 6 hrs prn pain [facility] [place] 7.5 mg-325 mg tablet take one tablet every 6 hrs prn pain [place] 7.5 mg-325 mg tablet take one tablet every 6 hrs prn pain 03-22 00:00: 00 No [place] 7.5 mg-325 mg tablet take one tablet every 6 hrs prn pain [facility] [place] 7.5 mg-325 mg tablet take one tablet every 6 hrs prn pain [place] 7.5 mg-325 mg tablet take one tablet every 6 hrs prn pain 03-22 00:00: 00 No [place] 7.5 mg-325 mg tablet take one tablet every 6 hrs prn pain [facility] [place] 7.5 mg-325 mg tablet take one tablet every 6 hrs prn pain [place] 7.5 mg-325 mg tablet take one tablet every 6 hrs prn pain 03-22 00:00: 00 No [place] 7.5 mg-325 mg tablet take one tablet every 6 hrs prn pain [facility] [place] 7.5 mg-325 mg tablet take one tablet every 6 hrs prn pain [place] 7.5 mg-325 mg tablet take one tablet every 6 hrs prn pain 03-22 00:00: 00 No [place] 7.5 mg-325 mg tablet take one tablet every 6 hrs prn pain [facility] [place] 10 mg-325 mg tablet 1 to 2 tablets every 4 to 6 hours as needed for pain [place] 10 mg-325 mg tablet 1 to 2 tablets every 4 to 6 hours as needed for pain 2012-03 00:00: 00 No [place] 10 mg-325 mg tablet 1 to 2 tablets every 4 to 6 hours as needed for pain [facility] [place] 10 mg-325 mg tablet 1 to 2 tablets every 4 to 6 hours as needed for pain [place] 10 mg-325 mg tablet 1 to 2 tablets every 4 to 6 hours as needed for pain 2012-03 00:00: 00 No [place] 10 mg-325 mg tablet 1 to 2 tablets every 4 to 6 hours as needed for pain [facility] Robaxin-750 750 mg tablet 1 tab po qid prn pain/spasms Robaxin-750 750 mg tablet 1 tab po qid prn pain/spasms 2012-03 00:00: 00 No Robaxin-75 0 750 mg tablet 1 tab po qid prn pain/spasm s [facility] Robaxin-750 750 mg tablet 1 tab po qid prn pain/spasms Robaxin-750 750 mg tablet 1 tab po qid prn pain/spasms 2012-03 00:00: 00 No Robaxin-75 0 750 mg tablet 1 tab po qid prn pain/spasm s [facility] Robaxin-750 750 mg tablet 1 tab po qid prn pain/spasms Robaxin-750 750 mg tablet 1 tab po qid prn pain/spasms 2012-03 00:00: 00 No Robaxin-75 0 750 mg tablet 1 tab po qid prn pain/spasm s [facility] Robaxin-750 750 mg tablet 1 tab po qid prn pain/spasms Robaxin-750 750 mg tablet 1 tab po qid prn pain/spasms 2012-03 00:00: 00 No Robaxin-75 0 750 mg tablet 1 tab po qid prn pain/spasm s [facility] Robaxin-750 750 mg tablet 1 tab po qid prn pain/spasms Robaxin-750 750 mg tablet 1 tab po qid prn pain/spasms 2012-03 00:00: 00 No Robaxin-75 0 750 mg tablet 1 tab po qid prn pain/spasm s [facility] Ultram 50 mg tablet take 2 tabs po q4-6h prn pain Ultram 50 mg tablet take 2 tabs po q4-6h prn pain 2012-03 00:00: 00 No Ultram 50 mg tablet take 2 tabs po q4-6h prn pain [facility] Ultram 50 mg tablet take 2 tabs po q4-6h prn pain Ultram 50 mg tablet take 2 tabs po q4-6h prn pain 2012-03 00:00: 00 No Ultram 50 mg tablet take 2 tabs po q4-6h prn pain [facility] pravastatin 80 mg tablet RX by other pravastatin 80 mg tablet RX by other 2012-03 00:00: 00 No pravastati n 80 mg tablet RX by other MD [facility] Uloric 80 mg tablet RX by other Uloric 80 mg tablet RX by other 2012-03 00:00: 00 No Uloric 80 mg tablet RX by other MD [facility] amlodipine 5 mg tablet RX by other amlodipine 5 mg tablet RX by other 2012-03 00:00: 00 No amlodipine 5 mg tablet RX by other MD [facility] pravastatin 80 mg tablet RX by other pravastatin 80 mg tablet RX by other 2012-03 00:00: 00 No pravastati n 80 mg tablet RX by other MD [facility] Uloric 80 mg tablet RX by other Uloric 80 mg tablet RX by other 2012-03 00:00: 00 No Uloric 80 mg tablet RX by other MD [facility] amlodipine 5 mg tablet RX by other amlodipine 5 mg tablet RX by other 2012-03 00:00: 00 No amlodipine 5 mg tablet RX by other MD [facility] pravastatin 80 mg tablet RX by other pravastatin 80 mg tablet RX by other 2012-03 00:00: 00 No pravastati n 80 mg tablet RX by other MD [facility] Uloric 80 mg tablet RX by other Uloric 80 mg tablet RX by other 2012-03 00:00: 00 No Uloric 80 mg tablet RX by other MD [facility] amlodipine 5 mg tablet RX by other amlodipine 5 mg tablet RX by other 2012-03 00:00: 00 No amlodipine 5 mg tablet RX by other MD [facility] pravastatin 80 mg tablet RX by other pravastatin 80 mg tablet RX by other 2012-03 00:00: 00 No pravastati n 80 mg tablet RX by other MD [facility] Uloric 80 mg tablet RX by other Uloric 80 mg tablet RX by other 2012-03 00:00: 00 No Uloric 80 mg tablet RX by other MD [facility] amlodipine 5 mg tablet RX by other amlodipine 5 mg tablet RX by other 2012-03 00:00: 00 No amlodipine 5 mg tablet RX by other MD [facility] pravastatin 80 mg tablet RX by other pravastatin 80 mg tablet RX by other 2012-03 00:00: 00 No pravastati n 80 mg tablet RX by other MD [facility] ap[facility]va Uloric 80 mg tablet RX by other Uloric 80 mg tablet RX by other 2012-03 00:00: 00 No Uloric 80 mg tablet RX by other MD [facility] amlodipine 5 mg tablet RX by other amlodipine 5 mg tablet RX by other 2012-03 00:00: 00 No amlodipine 5 mg tablet RX by other MD [facility] nystatin 100,000 unit/gram topical powder APPLY UP TO THREE TIMES DAILY TO RASH IN GROIN AREA nystatin 100,000 unit/gram topical powder APPLY UP TO THREE TIMES DAILY TO RASH IN GROIN AREA No nystatin 100,000 unit/gram topical powder APPLY UP TO THREE TIMES DAILY TO RASH IN GROIN AREA [facility] ondansetron 8 mg disintegrat ing tablet Place 1 tablet twice a day by translingua l route as needed for nausea. ondansetron 8 mg disintegrat ing tablet Place 1 tablet twice a day by translingua l route as needed for nausea. No 1 BID ondansetro n 8 mg disintegra ting tablet Place 1 tablet twice a day by translingu al route as needed for nausea. [facility] polyethylen e glycol 3350 17 gram/dose oral powder take 17g by mouth twice a day as needed for constipatio n polyethylen e glycol 3350 17 gram/dose oral powder take 17g by mouth twice a day as needed for constipatio n No polyethyle ne glycol 3350 17 gram/dose oral powder take 17g by mouth twice a day as needed for constipati on [facility] spironolact one 50 mg tablet TAKE 1 TABLET BY MOUTH EVERY DAY spironolact one 50 mg tablet TAKE 1 TABLET BY MOUTH EVERY DAY No spironolac tone 50 mg tablet TAKE 1 TABLET BY MOUTH EVERY DAY [facility] tramadol 50 mg tablet Take 1 tablet every 6 hours by oral route as needed for mild to moderate (2-7/10) pain. tramadol 50 mg tablet Take 1 tablet every 6 hours by oral route as needed for mild to moderate (2-7/10) pain. No tramadol 50 mg tablet Take 1 tablet every 6 hours by oral route as needed for mild to moderate (2-7/10) pain. [facility] triamcinolo ne acetonide 0.1 % topical cream APPLY TWICE DAILY TO CHEST NEEDED triamcinolo ne acetonide 0.1 % topical cream APPLY TWICE DAILY TO CHEST NEEDED No triamcinol one acetonide 0.1 % topical cream APPLY TWICE DAILY TO CHEST NEEDED [facility] acetaminoph en 300 mg-codeine 30 mg tablet TAKE 1 TABLET BY MOUTH EVERY 6 HOURS NEEDED acetaminoph en 300 mg-codeine 30 mg tablet TAKE 1 TABLET BY MOUTH EVERY 6 HOURS NEEDED No acetaminop hen 300 mg-codeine 30 mg tablet TAKE 1 TABLET BY MOUTH EVERY 6 HOURS NEEDED [facility] Warriormine Thyroid 90 mg tablet TAKE 1 TABLET BY MOUTH EVERY DAY Warriormine Thyroid 90 mg tablet TAKE 1 TABLET BY MOUTH EVERY DAY No Warriormine Thyroid 90 mg tablet TAKE 1 TABLET BY MOUTH EVERY DAY [facility] aspirin 81 mg tablet,parag yed release TAKE 1 TABLET BY MOUTH TWICE A DAY aspirin 81 mg tablet,parag yed release TAKE 1 TABLET BY MOUTH TWICE A DAY No aspirin 81 mg tablet,del ayed release TAKE 1 TABLET BY MOUTH TWICE A DAY [facility] clonidine HCl 0.1 mg tablet PLEASE SEE ATTACHED FOR DETAILED DIRECTIONS clonidine HCl 0.1 mg tablet PLEASE SEE ATTACHED FOR DETAILED DIRECTIONS No clonidine HCl 0.1 mg tablet PLEASE SEE ATTACHED FOR DETAILED DIRECTIONS [facility] gabapentin 100 mg capsule TAKE 1 CAPSULE BY MOUTH EVERYDAY AT BEDTIME gabapentin 100 mg capsule TAKE 1 CAPSULE BY MOUTH EVERYDAY AT BEDTIME No gabapentin 100 mg capsule TAKE 1 CAPSULE BY MOUTH EVERYDAY AT BEDTIME [facility] hydralazine 50 mg tablet TAKE 1 TABLET BY MOUTH TWICE A DAY hydralazine 50 mg tablet TAKE 1 TABLET BY MOUTH TWICE A DAY No hydralazin e 50 mg tablet TAKE 1 TABLET BY MOUTH TWICE A DAY [facility] hydrocodone 10 mg-acetamin ophen 325 mg tablet TAKE 1 TABLET EVERY 6 HOURS BY ORAL ROUTE NEEDED FOR SEVERE BREAKTHROUG H PAIN. hydrocodone 10 mg-acetamin ophen 325 mg tablet TAKE 1 TABLET EVERY 6 HOURS BY ORAL ROUTE NEEDED FOR SEVERE BREAKTHROUG H PAIN. No hydrocodon e 10 mg-acetami nophen 325 mg tablet TAKE 1 TABLET EVERY 6 HOURS BY ORAL ROUTE NEEDED FOR SEVERE BREAKTHROU GH PAIN. [facility] ketoconazol e 2 % topical cream APPLY TO RASH ON GROIN AREA TWICE A DAY ketoconazol e 2 % topical cream APPLY TO RASH ON GROIN AREA TWICE A DAY No ketoconazo le 2 % topical cream APPLY TO RASH ON GROIN AREA TWICE A DAY [facility] lorazepam 0.5 mg tablet TAKE ONE TABLET BY MOUTH AT BEDTIME NEEDED FOR INSOMNIA lorazepam 0.5 mg tablet TAKE ONE TABLET BY MOUTH AT BEDTIME NEEDED FOR INSOMNIA No lorazepam 0.5 mg tablet TAKE ONE TABLET BY MOUTH AT BEDTIME NEEDED FOR INSOMNIA [facility] meloxicam 7.5 mg tablet Take 1 tablet twice a day by oral route for inflammatio n/swelling for 30 days. meloxicam 7.5 mg tablet Take 1 tablet twice a day by oral route for inflammatio n/swelling for 30 days. No meloxicam 7.5 mg tablet Take 1 tablet twice a day by oral route for inflammati on/swellin g for 30 days. [facility] methocarbam ol 500 mg tablet TAKE 1 TABLET 4 TIMES A DAY BY ORAL ROUTE NEEDED FOR MUSCLE SPASMS AND CRAMPS. methocarbam ol 500 mg tablet TAKE 1 TABLET 4 TIMES A DAY BY ORAL ROUTE NEEDED FOR MUSCLE SPASMS AND CRAMPS. No methocarba mol 500 mg tablet TAKE 1 TABLET 4 TIMES A DAY BY ORAL ROUTE NEEDED FOR MUSCLE SPASMS AND CRAMPS. [facility] nystatin 100,000 unit/gram topical powder APPLY UP TO THREE TIMES DAILY TO RASH IN GROIN AREA nystatin 100,000 unit/gram topical powder APPLY UP TO THREE TIMES DAILY TO RASH IN GROIN AREA No nystatin 100,000 unit/gram topical powder APPLY UP TO THREE TIMES DAILY TO RASH IN GROIN AREA [facility] ondansetron 8 mg disintegrat ing tablet PLACE 1 TABLET UNDER THE TONGUE TWICE A DAY NEEDED FOR NAUSEA. ondansetron 8 mg disintegrat ing tablet PLACE 1 TABLET UNDER THE TONGUE TWICE A DAY NEEDED FOR NAUSEA. No ondansetro n 8 mg disintegra ting tablet PLACE 1 TABLET UNDER THE TONGUE TWICE A DAY NEEDED FOR NAUSEA. [facility] polyethylen e glycol 3350 17 gram/dose oral powder TAKE 17G BY MOUTH TWICE A DAY NEEDED FOR CONSTIPATIO N polyethylen e glycol 3350 17 gram/dose oral powder TAKE 17G BY MOUTH TWICE A DAY NEEDED FOR CONSTIPATIO N No polyethyle ne glycol 3350 17 gram/dose oral powder TAKE 17G BY MOUTH TWICE A DAY NEEDED FOR CONSTIPATI ON [facility] spironolact one 50 mg tablet TAKE 1 TABLET BY MOUTH EVERY DAY spironolact one 50 mg tablet TAKE 1 TABLET BY MOUTH EVERY DAY No spironolac tone 50 mg tablet TAKE 1 TABLET BY MOUTH EVERY DAY [facility] tramadol 50 mg tablet Take 1 tablet every 6 hours by oral route as needed for mild to moderate (2-7/10) pain. tramadol 50 mg tablet Take 1 tablet every 6 hours by oral route as needed for mild to moderate (2-7/10) pain. No tramadol 50 mg tablet Take 1 tablet every 6 hours by oral route as needed for mild to moderate (2-7/10) pain. [facility] triamcinolo ne acetonide 0.1 % topical cream APPLY TWICE DAILY TO CHEST NEEDED triamcinolo ne acetonide 0.1 % topical cream APPLY TWICE DAILY TO CHEST NEEDED No triamcinol one acetonide 0.1 % topical cream APPLY TWICE DAILY TO CHEST NEEDED [facility] acetaminoph en 300 mg-codeine 30 mg tablet TAKE 1 TABLET BY MOUTH EVERY 6 HOURS NEEDED acetaminoph en 300 mg-codeine 30 mg tablet TAKE 1 TABLET BY MOUTH EVERY 6 HOURS NEEDED No acetaminop hen 300 mg-codeine 30 mg tablet TAKE 1 TABLET BY MOUTH EVERY 6 HOURS NEEDED [facility] amoxicillin 500 mg capsule TAKE 4 CAPSULES BY MOUTH I HOUR PRIOR TO DENTAL APPOINTMENT amoxicillin 500 mg capsule TAKE 4 CAPSULES BY MOUTH I HOUR PRIOR TO DENTAL APPOINTMENT No amoxicilli n 500 mg capsule TAKE 4 CAPSULES BY MOUTH I HOUR PRIOR TO DENTAL APPOINTMEN T [facility] Warriormine Thyroid 90 mg tablet TAKE 1 TABLET BY MOUTH EVERY DAY Warriormine Thyroid 90 mg tablet TAKE 1 TABLET BY MOUTH EVERY DAY No Warriormine Thyroid 90 mg tablet TAKE 1 TABLET BY MOUTH EVERY DAY [facility] aspirin 81 mg tablet,parag yed release TAKE 1 TABLET BY MOUTH TWICE A DAY aspirin 81 mg tablet,parag yed release TAKE 1 TABLET BY MOUTH TWICE A DAY No aspirin 81 mg tablet,del ayed release TAKE 1 TABLET BY MOUTH TWICE A DAY [facility] clonidine HCl 0.1 mg tablet PLEASE SEE ATTACHED FOR DETAILED DIRECTIONS clonidine HCl 0.1 mg tablet PLEASE SEE ATTACHED FOR DETAILED DIRECTIONS No clonidine HCl 0.1 mg tablet PLEASE SEE ATTACHED FOR DETAILED DIRECTIONS [facility] gabapentin 100 mg capsule TAKE 1 CAPSULE BY MOUTH EVERYDAY AT BEDTIME gabapentin 100 mg capsule TAKE 1 CAPSULE BY MOUTH EVERYDAY AT BEDTIME No gabapentin 100 mg capsule TAKE 1 CAPSULE BY MOUTH EVERYDAY AT BEDTIME [facility] gabapentin 300 mg capsule TAKE 1 CAPSULE BY MOUTH EVERYDAY AT BEDTIME gabapentin 300 mg capsule TAKE 1 CAPSULE BY MOUTH EVERYDAY AT BEDTIME No gabapentin 300 mg capsule TAKE 1 CAPSULE BY MOUTH EVERYDAY AT BEDTIME [facility] hydralazine 50 mg tablet TAKE 1 TABLET BY MOUTH TWICE A DAY hydralazine 50 mg tablet TAKE 1 TABLET BY MOUTH TWICE A DAY No hydralazin e 50 mg tablet TAKE 1 TABLET BY MOUTH TWICE A DAY [facility] hydrochloro thiazide 12.5 mg tablet TAKE 1 TABLET BY MOUTH EVERY DAY hydrochloro thiazide 12.5 mg tablet TAKE 1 TABLET BY MOUTH EVERY DAY No hydrochlor othiazide 12.5 mg tablet TAKE 1 TABLET BY MOUTH EVERY DAY [facility] hydrocodone 10 mg-acetamin ophen 325 mg tablet TAKE 1 TABLET EVERY 6 HOURS BY ORAL ROUTE NEEDED FOR SEVERE BREAKTHROUG H PAIN. hydrocodone 10 mg-acetamin ophen 325 mg tablet TAKE 1 TABLET EVERY 6 HOURS BY ORAL ROUTE NEEDED FOR SEVERE BREAKTHROUG H PAIN. No hydrocodon e 10 mg-acetami nophen 325 mg tablet TAKE 1 TABLET EVERY 6 HOURS BY ORAL ROUTE NEEDED FOR SEVERE BREAKTHROU GH PAIN. [facility] ketoconazol e 2 % topical cream APPLY TO RASH ON GROIN AREA TWICE A DAY ketoconazol e 2 % topical cream APPLY TO RASH ON GROIN AREA TWICE A DAY No ketoconazo le 2 % topical cream APPLY TO RASH ON GROIN AREA TWICE A DAY [facility] lorazepam 0.5 mg tablet TAKE ONE TABLET BY MOUTH AT BEDTIME NEEDED FOR INSOMNIA lorazepam 0.5 mg tablet TAKE ONE TABLET BY MOUTH AT BEDTIME NEEDED FOR INSOMNIA No lorazepam 0.5 mg tablet TAKE ONE TABLET BY MOUTH AT BEDTIME NEEDED FOR INSOMNIA [facility] meloxicam 7.5 mg tablet Take 1 tablet twice a day by oral route for inflammatio n/swelling for 30 days. meloxicam 7.5 mg tablet Take 1 tablet twice a day by oral route for inflammatio n/swelling for 30 days. No meloxicam 7.5 mg tablet Take 1 tablet twice a day by oral route for inflammati on/swellin g for 30 days. [facility] methocarbam ol 500 mg tablet TAKE 1 TABLET 4 TIMES A DAY BY ORAL ROUTE NEEDED FOR MUSCLE SPASMS AND CRAMPS. methocarbam ol 500 mg tablet TAKE 1 TABLET 4 TIMES A DAY BY ORAL ROUTE NEEDED FOR MUSCLE SPASMS AND CRAMPS. No methocarba mol 500 mg tablet TAKE 1 TABLET 4 TIMES A DAY BY ORAL ROUTE NEEDED FOR MUSCLE SPASMS AND CRAMPS. [facility] nystatin 100,000 unit/gram topical powder APPLY UP TO THREE TIMES DAILY TO RASH IN GROIN AREA nystatin 100,000 unit/gram topical powder APPLY UP TO THREE TIMES DAILY TO RASH IN GROIN AREA No nystatin 100,000 unit/gram topical powder APPLY UP TO THREE TIMES DAILY TO RASH IN GROIN AREA [facility] ondansetron 8 mg disintegrat ing tablet PLACE 1 TABLET UNDER THE TONGUE TWICE A DAY NEEDED FOR NAUSEA. ondansetron 8 mg disintegrat ing tablet PLACE 1 TABLET UNDER THE TONGUE TWICE A DAY NEEDED FOR NAUSEA. No ondansetro n 8 mg disintegra ting tablet PLACE 1 TABLET UNDER THE TONGUE TWICE A DAY NEEDED FOR NAUSEA. [facility] polyethylen e glycol 3350 17 gram/dose oral powder TAKE 17G BY MOUTH TWICE A DAY NEEDED FOR CONSTIPATIO N polyethylen e glycol 3350 17 gram/dose oral powder TAKE 17G BY MOUTH TWICE A DAY NEEDED FOR CONSTIPATIO N No polyethyle ne glycol 3350 17 gram/dose oral powder TAKE 17G BY MOUTH TWICE A DAY NEEDED FOR CONSTIPATI ON [facility] spironolact one 50 mg tablet TAKE 1 TABLET BY MOUTH EVERY DAY spironolact one 50 mg tablet TAKE 1 TABLET BY MOUTH EVERY DAY No spironolac tone 50 mg tablet TAKE 1 TABLET BY MOUTH EVERY DAY [facility] tramadol 50 mg tablet Take 1 tablet every 6 hours by oral route as needed for mild to moderate (2-7/10) pain. tramadol 50 mg tablet Take 1 tablet every 6 hours by oral route as needed for mild to moderate (2-7/10) pain. No tramadol 50 mg tablet Take 1 tablet every 6 hours by oral route as needed for mild to moderate (2-7/10) pain. [facility] triamcinolo ne acetonide 0.1 % topical cream APPLY TWICE DAILY TO CHEST NEEDED triamcinolo ne acetonide 0.1 % topical cream APPLY TWICE DAILY TO CHEST NEEDED No triamcinol one acetonide 0.1 % topical cream APPLY TWICE DAILY TO CHEST NEEDED [facility] acetaminoph en 300 mg-codeine 30 mg tablet TAKE 1 TABLET BY MOUTH EVERY 6 HOURS NEEDED acetaminoph en 300 mg-codeine 30 mg tablet TAKE 1 TABLET BY MOUTH EVERY 6 HOURS NEEDED No acetaminop hen 300 mg-codeine 30 mg tablet TAKE 1 TABLET BY MOUTH EVERY 6 HOURS NEEDED [facility] Warriormine Thyroid 90 mg tablet TAKE 1 TABLET BY MOUTH EVERY DAY Warriormine Thyroid 90 mg tablet TAKE 1 TABLET BY MOUTH EVERY DAY No Warriormine Thyroid 90 mg tablet TAKE 1 TABLET BY MOUTH EVERY DAY [facility] clonidine HCl 0.1 mg tablet PLEASE SEE ATTACHED FOR DETAILED DIRECTIONS clonidine HCl 0.1 mg tablet PLEASE SEE ATTACHED FOR DETAILED DIRECTIONS No clonidine HCl 0.1 mg tablet PLEASE SEE ATTACHED FOR DETAILED DIRECTIONS [facility] hydralazine 50 mg tablet TAKE 1 TABLET BY MOUTH TWICE A DAY hydralazine 50 mg tablet TAKE 1 TABLET BY MOUTH TWICE A DAY No hydralazin e 50 mg tablet TAKE 1 TABLET BY MOUTH TWICE A DAY [facility] [facility] spironolact one 50 mg tablet TAKE 1 TABLET BY MOUTH EVERY DAY spironolact one 50 mg tablet TAKE 1 TABLET BY MOUTH EVERY DAY No spironolac tone 50 mg tablet TAKE 1 TABLET BY MOUTH EVERY DAY [facility] triamcinolo ne acetonide 0.1 % topical cream APPLY TWICE DAILY TO CHEST NEEDED triamcinolo ne acetonide 0.1 % topical cream APPLY TWICE DAILY TO CHEST NEEDED No triamcinol one acetonide 0.1 % topical cream APPLY TWICE DAILY TO CHEST NEEDED [facility] acetaminoph en 300 mg-codeine 30 mg tablet TAKE 1 TABLET BY MOUTH EVERY 6 HOURS NEEDED acetaminoph en 300 mg-codeine 30 mg tablet TAKE 1 TABLET BY MOUTH EVERY 6 HOURS NEEDED No acetaminop hen 300 mg-codeine 30 mg tablet TAKE 1 TABLET BY MOUTH EVERY 6 HOURS NEEDED [facility] Warriormine Thyroid 90 mg tablet TAKE 1 TABLET BY MOUTH EVERY DAY Warriormine Thyroid 90 mg tablet TAKE 1 TABLET BY MOUTH EVERY DAY No Warriormine Thyroid 90 mg tablet TAKE 1 TABLET BY MOUTH EVERY DAY [facility] clonidine HCl 0.1 mg tablet PLEASE SEE ATTACHED FOR DETAILED DIRECTIONS clonidine HCl 0.1 mg tablet PLEASE SEE ATTACHED FOR DETAILED DIRECTIONS No clonidine HCl 0.1 mg tablet PLEASE SEE ATTACHED FOR DETAILED DIRECTIONS [facility] gabapentin 100 mg capsule TAKE 1 CAPSULE BY MOUTH EVERYDAY AT BEDTIME gabapentin 100 mg capsule TAKE 1 CAPSULE BY MOUTH EVERYDAY AT BEDTIME No gabapentin 100 mg capsule TAKE 1 CAPSULE BY MOUTH EVERYDAY AT BEDTIME [facility] hydralazine 50 mg tablet TAKE 1 TABLET BY MOUTH TWICE A DAY hydralazine 50 mg tablet TAKE 1 TABLET BY MOUTH TWICE A DAY No hydralazin e 50 mg tablet TAKE 1 TABLET BY MOUTH TWICE A DAY [facility] ketoconazol e 2 % topical cream APPLY TO RASH ON GROIN AREA TWICE A DAY ketoconazol e 2 % topical cream APPLY TO RASH ON GROIN AREA TWICE A DAY No ketoconazo le 2 % topical cream APPLY TO RASH ON GROIN AREA TWICE A DAY [facility] lorazepam 0.5 mg tablet TAKE ONE TABLET BY MOUTH AT BEDTIME NEEDED FOR INSOMNIA lorazepam 0.5 mg tablet TAKE ONE TABLET BY MOUTH AT BEDTIME NEEDED FOR INSOMNIA No lorazepam 0.5 mg tablet TAKE ONE TABLET BY MOUTH AT BEDTIME NEEDED FOR INSOMNIA [facility] nystatin 100,000 unit/gram topical powder APPLY UP TO THREE TIMES DAILY TO RASH IN GROIN AREA nystatin 100,000 unit/gram topical powder APPLY UP TO THREE TIMES DAILY TO RASH IN GROIN AREA No nystatin 100,000 unit/gram topical powder APPLY UP TO THREE TIMES DAILY TO RASH IN GROIN AREA [facility] spironolact one 50 mg tablet TAKE 1 TABLET BY MOUTH EVERY DAY spironolact one 50 mg tablet TAKE 1 TABLET BY MOUTH EVERY DAY No spironolac tone 50 mg tablet TAKE 1 TABLET BY MOUTH EVERY DAY [facility] triamcinolo ne acetonide 0.1 % topical cream APPLY TWICE DAILY TO CHEST NEEDED triamcinolo ne acetonide 0.1 % topical cream APPLY TWICE DAILY TO CHEST NEEDED No triamcinol one acetonide 0.1 % topical cream APPLY TWICE DAILY TO CHEST NEEDED [facility] acetaminoph en 300 mg-codeine 30 mg tablet TAKE 1 TABLET BY MOUTH EVERY 6 HOURS NEEDED acetaminoph en 300 mg-codeine 30 mg tablet TAKE 1 TABLET BY MOUTH EVERY 6 HOURS NEEDED No acetaminop hen 300 mg-codeine 30 mg tablet TAKE 1 TABLET BY MOUTH EVERY 6 HOURS NEEDED [facility] Warriormine Thyroid 90 mg tablet TAKE 1 TABLET BY MOUTH EVERY DAY Warriormine Thyroid 90 mg tablet TAKE 1 TABLET BY MOUTH EVERY DAY No Warriormine Thyroid 90 mg tablet TAKE 1 TABLET BY MOUTH EVERY DAY [facility] aspirin 81 mg tablet,parag yed release Take 1 tablet twice a day by oral route. aspirin 81 mg tablet,parag yed release Take 1 tablet twice a day by oral route. No 1 BID aspirin 81 mg tablet,del ayed release Take 1 tablet twice a day by oral route. [facility] clonidine HCl 0.1 mg tablet PLEASE SEE ATTACHED FOR DETAILED DIRECTIONS clonidine HCl 0.1 mg tablet PLEASE SEE ATTACHED FOR DETAILED DIRECTIONS No clonidine HCl 0.1 mg tablet PLEASE SEE ATTACHED FOR DETAILED DIRECTIONS [facility] gabapentin 100 mg capsule TAKE 1 CAPSULE BY MOUTH EVERYDAY AT BEDTIME gabapentin 100 mg capsule TAKE 1 CAPSULE BY MOUTH EVERYDAY AT BEDTIME No gabapentin 100 mg capsule TAKE 1 CAPSULE BY MOUTH EVERYDAY AT BEDTIME [facility] hydralazine 50 mg tablet TAKE 1 TABLET BY MOUTH TWICE A DAY hydralazine 50 mg tablet TAKE 1 TABLET BY MOUTH TWICE A DAY No hydralazin e 50 mg tablet TAKE 1 TABLET BY MOUTH TWICE A DAY [facility] hydrocodone 10 mg-acetamin ophen 325 mg tablet Take 1 tablet every 6 hours by oral route as needed for severe breakthroug h pain. hydrocodone 10 mg-acetamin ophen 325 mg tablet Take 1 tablet every 6 hours by oral route as needed for severe breakthroug h pain. No 1 Q6H hydrocodon e 10 mg-acetami nophen 325 mg tablet Take 1 tablet every 6 hours by oral route as needed for severe breakthrou gh pain. [facility] ketoconazol e 2 % topical cream APPLY TO RASH ON GROIN AREA TWICE A DAY ketoconazol e 2 % topical cream APPLY TO RASH ON GROIN AREA TWICE A DAY No ketoconazo le 2 % topical cream APPLY TO RASH ON GROIN AREA TWICE A DAY [facility] lorazepam 0.5 mg tablet TAKE ONE TABLET BY MOUTH AT BEDTIME NEEDED FOR INSOMNIA lorazepam 0.5 mg tablet TAKE ONE TABLET BY MOUTH AT BEDTIME NEEDED FOR INSOMNIA No lorazepam 0.5 mg tablet TAKE ONE TABLET BY MOUTH AT BEDTIME NEEDED FOR INSOMNIA [facility] meloxicam 7.5 mg tablet Take 1 tablet twice a day by oral route for inflammatio n/swelling for 30 days. meloxicam 7.5 mg tablet Take 1 tablet twice a day by oral route for inflammatio n/swelling for 30 days. No meloxicam 7.5 mg tablet Take 1 tablet twice a day by oral route for inflammati on/swellin g for 30 days. [facility] methocarbam ol 500 mg tablet Take 1 tablet 4 times a day by oral route as needed for muscle spasms and cramps. for muscle spasms and tightness methocarbam ol 500 mg tablet Take 1 tablet 4 times a day by oral route as needed for muscle spasms and cramps. for muscle spasms and tightness No 1 QID methocarba mol 500 mg tablet Take 1 tablet 4 times a day by oral route as needed for muscle spasms and cramps. for muscle spasms and tightness [facility] Vital Signs Vital Name Observation Time Observation Value Comments S ource Height 2022-05-31 00:00:00 66 [in_i] [facility] BMI (Body Mass Index) 2022-05-31 00:00:00 29.1 kg/m2 [facility] Body Weight 2022-05-31 00:00:00 180 [lb_av] [facility] Height 2022-03-17 00:00:00 66 [in_i] [facility] BMI (Body Mass Index) 2022-03-17 00:00:00 29.1 kg/m2 [facility] Body Weight 2022-03-17 00:00:00 180 [lb_av] [facility] Height 2022-02-09 00:00:00 66 [in_i] [facility] BMI (Body Mass Index) 2022-02-09 00:00:00 29.1 kg/m2 [facility] Body Weight 2022-02-09 00:00:00 180 [lb_av] [facility] Height 2021-12-20 00:00:00 66 [in_i] [facility] BMI (Body Mass Index) 2021-12-20 00:00:00 29.1 kg/m2 [facility] Body Weight 2021-12-20 00:00:00 180 [lb_av] [facility] Procedures Procedure Date / Time Performed Performing Clinician Source XR, knee, 3 view 2022-05-31 00:00:00 [facility] XR, knee, 4 or more view 2022-02-09 00:00:00 [facility] K[facility] Replacement [facility] Encounters Start Date/Time End Date/Time Encounter Type Admission Type Attending [facility] Care Facility Care Department Encounter ID Source 2021-09-21 14:52:00 Outpatient Myles Sanches [facility] [id number] [facility] 2021-09-16 09:24:00 Outpatient Myles Sanches [facility] [id number] [facility] 2021-09-15 09:47:00 Outpatient [facility] [id number] [facility] 2023-01-02 00:00:00 2023-01-02 00:00:00 Outpatient FOG_Goytia_ Robin_MD AOSM AOSM [id number] [facility] 2022-10-25 00:00:00 2022-10-25 00:00:00 Outpatient FOG_Goytia_ Robin_MD AOSM AOSM [id number] [facility] 2022-10-25 00:00:00 2022-10-25 00:00:00 Outpatient FOG_Goytia_ Robin_MD AOSM AOSM [id number] [facility] 2022-10-25 00:00:00 2022-10-25 00:00:00 Outpatient FOG_Goytia_ Robin_MD AOSM AOSM [id number] [facility] 2022-09-30 00:00:00 2022-09-30 00:00:00 Outpatient FOG_Goytia_ Robin_MD AOSM AOSM [id number] [facility] 2022-09-30 00:00:00 2022-09-30 00:00:00 Outpatient FOG_Goytia_ Robin_MD AOSM AOSM [id number] [facility] 2022-08-26 05:25:00 2022-08-26 05:25:00 Outpatient Vincent Lin [id number] [facility] 2022-08-22 00:00:00 2022-08-22 00:00:00 Outpatient FOG_Goytia_ Robin_MD AOSM AOSM [id number] [facility] 2022-08-22 00:00:00 2022-08-22 00:00:00 Outpatient FOG_Goytia_ Robin_MD AOSM AOSM [id number] [facility] 2022-08-22 00:00:00 2022-08-22 00:00:00 Outpatient FOG_Goytia_ Robin_MD AOSM AOSM [id number] [facility] 2022-08-19 00:00:00 2022-08-19 00:00:00 Outpatient FOG_Goytia_ Robin_MD AOSM AOSM [id number] [facility] 2022-08-18 00:00:00 2022-08-18 00:00:00 Outpatient FOG_Goytia_ Robin_MD AOSM AOSM [id number] [facility] 2022-06-01 00:00:00 2022-06-01 00:00:00 Outpatient FOG_Goytia_ Robin_MD AOSM AOSM [id number] [facility] 2022-06-01 00:00:00 2022-06-01 00:00:00 Outpatient FOG_Goytia_ Robin_MD AOSM AOSM [id number] [facility] 2022-06-01 00:00:00 2022-06-01 00:00:00 Outpatient FOG_Goytia_ Robin_MD AOSM AOSM [id number] [facility] 2022-06-01 00:00:00 2022-06-01 00:00:00 Outpatient FOG_Goytia_ Robin_MD AOSM AOSM [id number] [facility] 2022-05-31 00:00:00 2022-05-31 00:00:00 Outpatient FOG_Goytia_ Robin_MD AOSM AO [id number] [facility] 2022-05-31 00:00:00 2022-05-31 00:00:00 Arely Trevino MD: [id number] [phone] , Ph. [phone] [place] [facility] [place] [facility] [id number] [facility] 2022-04-01 00:00:00 2022-04-01 00:00:00 Outpatient FOG_Goytia_ Robin_ AO AO [id number] [facility] 2022-04-01 00:00:00 2022-04-01 00:00:00 Outpatient FOG_Goytia_ Robin_ AO AO [id number] [facility] 2022-03-17 00:00:00 2022-03-17 00:00:00 Outpatient FOG_Goytia_ Robin_ AO AO [id number] [facility] 2022-03-17 00:00:00 2022-03-17 00:00:00 STEPHANY Senior: [address] [place] [address] , Ph. [phone] [place] [facility] [place] [facility] [id number] [facility] 2022-03-15 00:00:00 2022-03-15 00:00:00 Outpatient FOG_Goytia_ Robin_ AOSM AO [id number] [facility] 2022-03-15 00:00:00 2022-03-15 00:00:00 Outpatient FOG_Goytia_ Robin_ AOSM AO [id number] [facility] 2022-02-28 00:00:00 2022-02-28 00:00:00 Outpatient FOG_Goytia_ Robin_MD AOSM AOSM [id number] [facility] 2022-02-24 07:56:00 2022-02-25 12:00:00 Inpatient Arely Bernardo [facility] [id number] 30 [facility] 2022-02-24 00:00:00 2022-02-24 00:00:00 Outpatient FOG_Goytia_ Robin_MD AOSM AOSM [id number] [facility] 2022-02-24 00:00:00 2022-02-24 00:00:00 Arely Trevino MD: [address] [place] [phone] , Ph. [phone] [place] [facility] [place] [facility] [id number] [facility] 2022-02-09 16:08:00 2022-02-09 16:08:[address] [facility] [id number] [facility] 2022-02-09 00:00:00 2022-02-09 00:00:00 Outpatient FOG_Goytia_ Robin_MD AOSM AO [id number] [facility] 2022-02-09 00:00:00 2022-02-09 00:00:00 Outpatient FOG_Goytia_ Robin_MD AOSM AOSM [id number] [facility] 2022-02-09 00:00:00 2022-02-09 00:00:00 STEPHANY Senior: [address] [place] [address] , Ph. [phone] [place] [facility] [place] [facility] [place] [id number] [facility] 2022-02-08 00:00:00 2022-02-08 00:00:00 Outpatient FOG_Goytia_ Robin_MD AOSM AOSM [id number] [facility] 2022-01-06 00:00:00 2022-01-06 00:00:00 Outpatient FOG_Goytia_ Robin_MD AOSM AOSM [id number] [facility] 2022-01-05 00:00:00 2022-01-05 00:00:00 Outpatient FOG_Goytia_ Robin_MD AOSM AOSM [id number] [facility] 2021-12-23 00:00:00 2021-12-23 00:00:00 Outpatient FOG_Goytia_ Robin_MD AOSM AOSM [id number] [facility] 2021-12-20 00:00:00 2021-12-20 00:00:00 Outpatient FOG_Goytia_ Robin_MD AOSM AOSM [id number] [facility] 2021-12-20 00:00:00 2021-12-20 00:00:00 Arely Trevino MD: [address] [place] [address] , Ph. [phone] [place] [facility] [place] [facility] [id number] [facility] 2021-12-15 00:00:00 2021-12-15 00:00:00 Outpatient FOG_Goytia_ Robin_MD AOSM AOSM [id number] [facility] 2021-12-07 00:00:00 2021-12-07 00:00:00 Outpatient FOG_Goytia_ Robin_MD AOSM AOSM [id number] [facility] Results Test Description Test Time Test Comments Results Result Co mments Source COMPREHENSIVE METABOLIC [id number] 20:51:00* Test Item Value Reference Range Interpretation Comme nts SODIUM (test code = NA) 137 mEq/L 135-145 N POTASSIUM (test code = K) 3.9 mEq/L 3.5-5.0 N CHLORIDE (test code = CL) 100 mEq/L 100-115 N CARBON DIOXIDE (test code = CO2) 28 mEq/L 22-31 N ANION GAP (test code = GAP) 13.20 10-20 N GLUCOSE (test code = GLU) 127 mg/dL 65-110 H BLOOD UREA NITROGEN (test code = BUN) 22 mg/dL 7-18 H GLOMERULAR FILTRATION RATE (test code = GFR) 65 ml/min >60 N The Glomerular Filtration Rate is a calculated parameterbased on serum Creatinine, patient age and sex. GFR valuesless than 60 mL/min/1.73 square meters are indicative ofChronic Kidney Disease. Values less than 15 mL/min/1.73square meters indicate Kidney failure. The calculation forGFR is based on the CKD-EPI (202) calculation. This formulais race indifferent and is the recommended formula for GFRby the National Kidney Foundation for Adults.The GFR will not calculate if the sex is unknown or if thepatient's age is <18 years. CREATININE (test code = CREAT) 1.1 mg/dL 0.7-1.3 N TOTAL PROTEIN (test code = PROT) 7.7 gm/dL 6.3-8.2 N ALBUMIN (test code = ALB) 3.9 gm/dL 3.4-4.8 N CALCIUM (test code = CA) 9.1 mg/dL 8.4-10.2 N BILIRUBIN TOTAL (test code = BILT) 0.3 mg/dL 0.2-1.0 N SGOT/AST (test code = AST) 20 units/L 15-37 N SGPT/ALT (test code = ALT) 19 units/L 12-78 N ALKALINE PHOSPHATASE TOTAL (test code = ALKP) 104 units/L 46-116 N CBC W/AUTO [id number] 18:35:00* Test Item Value Reference Range Interpretation Comme nts WHITE BLOOD CELL (test code = WBC) [...] 27-34 N MEAN CELL HGB CONCENTRATION (test code = MCHC) 33.7 g/dL 30.8-34.1 N RED CELL DISTRIBUTION WIDTH (test code = RDW) 13.1 % 11-16 N PLT (test code = PLT) 298 K/mm3 130-400 N MEAN PLATELET VOLUME (test c ode = MPV) 9.8 fL 8.9-12.1 N NEUTROPHIL % (test code = NT%) 62.9 [...] K/mm3 0.02-0.10 N MANUAL DIFF REQUIRED (test c ode = MDIFF) NO MANUAL DIFF NUCLEATED RED BLOOD CELL (te st code = NRBC) 0 % 0-0 N BASIC METABOLIC [id number] 09:14:00* Test Item Value Reference Range Interpretation Comme nts SODIUM (test code = NA) 138 mmol/L 136-145 N POTASSIUM (test code = K) 4.3 mmol/L 3.5-5.1 N CHLORIDE (test code = CL) 101.0 mmol/L 98-107 N CARBON DIOXIDE (test code = CO2) 27.0 mmol/L 21-32 N GLUCOSE (test code = GLU) 118 mg/dL 70-110 H BLOOD UREA NITROGEN (test code = BUN) 24 mg/dL 7-18 H GLOMERULAR FILTRATION RATE (test code = GFR) 60.6 >60 The Glomerular Filtration Rate is a calculated parameterbased on serum Creatinine, patient age and sex. GFR valuesless than 60 mL/min/1.73 square meters are indicative ofChronic Kidney Disease. Values less than 15 mL/min/1.73square meters indicate Kidney failure. The calculation forGFR is based on the CKD-EPI (2020) calculation. This formulais race indifferent and is the recommended formula for GFRby the National Kidney Foundation for Adults.The GFR will not calculate if the sex is unknown or if thepatient's age is <18 years. CREATININE (test code = CREAT) 1.16 mg/dL 0.55-1.30 N CALCIUM (test code = CA) 8.3 mg/dL 8.2-10.1 N HGB [id number] 06:24:00* Test Item Value Reference Range Interpretation Comme nts HEMOGLOBIN (test code = HGB) 11.5 g/dL 12-16 L HEMATOCRIT (test code = HCT) 34.2 % 37-47 L SPECIMEN COMMENT: POD #1Hemoglobin and Hematocrit panel - [id number] 03:10:00* Test Item Value Reference Range Interpretation Comme nts hemoglobin (test code = hemoglobin) 11.5 g/dL 12-16 L hematocrit (test code = hematocrit) 34.2 % 37-47 L performing lab: (test code = performing lab:) [facility] 2022-02-25 03:10:00* Test Item Value Reference Range Interpretation Comme nts hemoglobin (test code = hemoglobin) 11.5 g/dL 12-16 L hematocrit (test code = hematocrit) 34.2 % 37-47 L performing lab: (test code = performing lab:) [facility] [id number] 17:21:00 * Test Item Value Reference Range Interpretation Comme nts PTT ACTIVATED (test code = APTT) 30.9 secs 26.6-34.6 N Please note new normal range. IS PATIENT ON ANTICOAGULANTS ? [facility] been notified if Patient is on Heparin Drip? NOPROTHROMBIN [id number] 17:21:00* Test Item Value Reference Range Interpretation Comme nts PROTHROMBIN TIME PATIENT (test code = PTP) 10.1 secs 9.7-12.5 N Please note new normal range. INTERNATIONAL NORMAL RATIO (test code = INR) 0.91 <2.0 RECOMMENDED THER APEUTIC RANGE FOR ORAL ANTICOAGULANTTREATMENT: CONDITION INRProphylaxis of venous thrombosis in 2.0 - 3.0 high-risk medical or surgical patientsTreatment of venous thrombosis 2.0 - 3.0Prevention of embolism 2.0 - 3.0Prevention of recurrent embolism, or 3.0 - 4.5 patients with mechanical prosthetic intravascular valves IS PATIENT ON ANTICOAGULANTS ? [facility] been notified if Patient is on Heparin Drip? NOCOMPREHENSIVE METABOLIC [id number] 17:17:00* Test Item Value Reference Range Interpretation Comme nts SODIUM (test code = NA) 136 mmol/L 136-145 N POTASSIUM (test code = K) 4.3 mmol/L 3.5-5.1 N CHLORIDE (test code = CL) 99.0 mmol/L 98-107 N CARBON DIOXIDE (test code = CO2) 30.2 mmol/L 21-32 N GLUCOSE (test code = GLU) 103 mg/dL 70-110 N BLOOD UREA NITROGEN (test code = BUN) 25 mg/dL 7-18 H GLOMERULAR FILTRATION RATE (test code = GFR) 55.4 >60 The Glomerular Filtration Rate is a calculated parameterbased on serum Creatinine, patient age and sex. GFR valuesless than 60 mL/min/1.73 square meters are indicative ofChronic Kidney Disease. Values less than 15 mL/min/1.73square meters indicate Kidney failure. The calculation forGFR is based on the CKD-EPI (202) calculation. This formulais race indifferent and is the recommended formula for GFRby the National Kidney Foundation for Adults.The GFR will not calculate if the sex is unknown or if thepatient's age is <18 years. CREATININE (test code = CREAT) 1.25 mg/dL 0.55-1.30 N TOTAL PROTEIN (test code = PROT) 7.4 g/dL 6.4-8.2 N ALBUMIN (test code = ALB) 3.8 g/dL 3.4-5.0 N GLOBULIN (test code = GLOB) 3.6 g/dL 2.2-4.2 N ALBUMIN/GLOBULIN RATIO (test code = A/G) 1.1 0.7-2.0 N CALCIUM (test code = CA) 8.5 mg/dL 8.2-10.1 N BILIRUBIN TOTAL (test code = BILT) 0.30 mg/dL 0.2-1.00 N SGOT/AST (test code = AST) 20.0 U/L 15-37 N SGPT/ALT (test code = ALT) 19.0 U/L 12-78 N Please note new normal range. ALKALINE PHOSPHATASE TOTAL (test code = ALKP) 87 U/L 46-116 N CBC W/AUTO [id number] 17:10:00* Test Item Value Reference Range Interpretation Comme nts WHITE BLOOD CELL (test code = WBC) [...] 27-34 N MEAN CELL HGB CONCENTRATION (test code = MCHC) 32.6 g/dL 30.8-34.1 N RED CELL DISTRIBUTION WIDTH (test code = RDW) 12.7 % 11-16 N PLT (test code = PLT) 272 K/mm3 130-400 N MEAN PLATELET VOLUME (test c ode = MPV) 10.9 fL 8.9-12.1 N NEUTROPHIL % (test code = NT%) 55.9 [...] K/mm3 0.02-0.10 N MANUAL DIFF REQUIRED (test c ode = MDIFF) NO MANUAL DIFF NUCLEATED RED BLOOD CELL (te st code = NRBC) 0 % 0-0 N CBC W Auto Differential panel - [id number] 15:00:00* Test Item Value Reference Range Interpretation Comme nts white blood cell (test code = white blood cell) 6.6 K/mm3 5.7-10.5 red blood cell (test code = red blood cell) 4.40 M/mm3 4.2-5.4 hemoglobin (test code = hemoglobin) 13.0 g/dL 12-16 hematocrit (test code = hematocrit) 39.9 % 37-47 mean cell volume (test code = mean cell volume) 91 fL 80-98 mean cell HGB (test code = m tobias cell HGB) 29.5 pg 27-34 mean cell HGB concentration (test code = mean cell HGB concentration) 32.6 g/dL 30.8-34.1 red cell distribution width (test code = red cell distribution width) 12.7 % 11-16 plt (test code = plt) 272 K/mm3 130-400 mean platelet volume (test c ode = mean platelet volume) 10.9 fL 8.9-12.1 neutrophil % (test code = neutrophil %) 55.9 % 45-70 lymphocyte % (test code = lymphocyte %) 28.4 % 20-40 monocyte % (test code = mono cyte %) 13.1 % 3-10 H eosinophil % (test code = eosinophil %) 1.8 % 1-5 basophil % (test code = baso tyree %) 0.5 % 0.0-1.1 neutrophil # (test code = neutrophil #) 3.71 K/mm3 2.00-7.50 lymphocyte # (test code = lymphocyte #) 1.88 K/mm3 1.50-4.00 monocyte # (test code = mono cyte #) 0.87 K/mm3 0.2-0.8 H eosinophil # (test code = eosinophil #) 0.12 K/mm3 0.04-0.4 basophil # (test code = baso tyree #) 0.03 K/mm3 0.02-0.10 manual diff required (test c ode = manual diff required) no manual diff nucleated red blood cell (te st code = nucleated red blood cell) 0 % 0-0 performing lab: (test code = performing lab:) [facility] or [id number] 15:00:00* Test Item Value Reference Range Interpretation Comme nts sodium (test code = sodium) 136 mmol/L 136-145 potassium (test code = potassium) 4.3 mmol/L 3.5-5.1 chloride (test code = chloride) 99.0 mmol/L 98-107 carbon dioxide (test code = carbon dioxide) 30.2 mmol/L 21-32 glucose (test code = glucose) 103 mg/dL 70-110 blood urea nitrogen (test co de = blood urea nitrogen) 25 mg/dL 7-18 H glomerular filtration rate ( test code = glomerular filtration rate) 55.4 >60 creatinine (test code = creatinine) 1.25 mg/dL 0.55-1.30 total protein (test code = t otal protein) 7.4 g/dL 6.4-8.2 albumin (test code = albumin) 3.8 g/dL 3.4-5.0 globulin (test code = globulin) 3.6 g/dL 2.2-4.2 albumin/globulin ratio (test code = albumin/globulin ratio) 1.1 0.7-2.0 calcium (test code = calcium) 8.5 mg/dL 8.2-10.1 bilirubin total (test code = bilirubin total) 0.30 mg/dL 0.2-1.00 SGOT/AST (test code = SGOT/AST) 20.0 U/L 15-37 SGPT/ALT (test code = SGPT/ALT) 19.0 U/L 12-78 alkaline phosphatase total ( test code = alkaline phosphatase total) 87 U/L 46-116 performing lab: (test code = performing lab:) [facility]:00:00* Test Item Value Reference Range Interpretation Comme nts prothrombin time patient (te st code = prothrombin time patient) 10.1 secs 9.7-12.5 international normal ratio ( test code = international normal ratio) 0.91 <2.0 performing lab: (test code = performing lab:) [facility] pwnrdvw3233-14-32 15:00:00 * Test Item Value Reference Range Interpretation Comme nts PTT activated (test code = P TT activated) 30.9 secs 26.6-34.6 performing lab: (test code = performing lab:) [facility] HospitalM[facility]icillin resistant Staphylococcus aureus [Presence] in Specimen by Organism specific wbpfzmm5744-93-53 15:00:00* Test Item Value Reference Range Interpretation Comme nts MRSA surveillance screen (te st code = MRSA surveillance screen) see below performing lab: (test code = performing lab:) [facility] surveillance dtwxwe2485-97-73 15:00:00 * Test Item Value Reference Range Interpretation Comme nts mssa PCR surveillance screen (test code = mssa PCR surveillance screen) see below performing lab: (test code = performing lab:) [facility] Notes Date/Time Note Provider Source 2022-08-26 10:40:00 [id number] oDQ7UEN6wn05OVxCMjQ3CANaZMtpm 6lrPP9wg7wu8+fV06+N9a7WCDs/2675-96-01X84:40:98103 6-0016 [place] [address] PATIENT NAME: ANTHONY FONG ADMIT DATE: 08/26/22ACCOUNT NO: [id number] ROOM NO: AGE: 86 REPORT TYPE: OPERATIVE REPORT SEX: M ADMITTING PHYSICIAN: ATTENDING PHYSICIAN:Vincent Benitez MD OPERATION DATE: 08/26/2022 Knee arthroscopy template FINAL DIAGNOSIS: Left knee extensive synovitis, 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 FINAL PROCEDURE: Left knee arthroscopy with extensive debridement and synovectomy, 04467. 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 PROCEDURE: Left knee arthroscopy with extensive debridement and synovectomy, 54348. FINAL IMPLANTS AND TECHNIQUE: Not applicable. SURGEON: Vincent A Elkousy, M.D. RESIDENTIAL SALES ASSOCIATE: None. ANESTHESIA: General. 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 He did well postoperatively, but he started developing mechanical symptoms. 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 He now presents for operative intervention for debridement. He does have good range of motion. PROCEDURE DETAIL: The left knee was appropriately identified. The patient was then placed under [...] Absent.OTHER: None. FINDINGS IN THE PATELLOFEMORAL COMPARTMENT:PATELLAR ARTICULAR CARTILAGE: TKA in place.TROCHLEAR ARTICULAR CARTILAGE: TKA in place.OTHER: Hypertrophic scar tissue on the back or deep side of the patellar tendon. This was debrided extensively with the arthroscope placed in the superolateral portal and instruments placed in both the medial and lateral portals. Debridement was done down to the level of the tibial tray into the gutters. MEDIAL GUTTER: Hypertrophic scar tissue debrided.LATERAL GUTTER: Even more than the medial side with significant hypertrophic scar tissue debrided throughout the medial gutter.SUPRAPATELLAR POUCH: Large hypertrophic area of synovitis and scar tissue on the undersurface of the quadriceps tendon to the superior pole of the patella. This was also debrided and removed. All instruments were then removed from the knee and the portal sites were closedusing 3-0 monocryl suture. The knee was injected with morphine. Dressings were then placed. COMPLICATIONS: None. ESTIMATED BLOOD LOSS: Minimal. SPECIMENS: None. PROGNOSIS: Good. I spoke to his postoperatively. He will be weightbearing as tolerated and range of motion as tolerated. Dictated By: Vincent Benitez MD Date Dictated: 08/26/2022 10:40:17Date Transcribed: 08/26/2022 11:17:15[facility]/VSRJob #: [id number] ID: [id number] by Vincent Benitez MD On 08/27/2022 09:01:59 AM PATIENT NAME: ANTHONY FONG at 0901 PATIENT NAME: ANTHONY FONG ejtkos7511-80-62I68:17:00Y.XIF15721956-3912QXKmzj lable for patient wmlqGRBVBIPBZHVBSB5774-29-21Y73:02:31 [facility] 06:20:00 [id number]/ 0V20V+Kr2gXf9T0WAmNyDbikkPRbX dEiPEi44wcsUGXL6iWxllGtMxHu1188-70-03G02:20:00 [facility] ([facility])Brief Op NoteREPORT#:[id number] REPORT STATUS: SignedDATE:08/26/22 TIME: 06 PATIENT: ANTHONY FONG UNIT #: [id number]#: [id number] ROOM/BED:: 33 AGE: 86 SEX: M ATTEND: Vincent Benitez [facility] AUTHOR: Vincent Benitez MD * ALL edits or amendments must be made on the electronic/computer document * Op/Inv Proc Note - BriefPre-procedure diagnosis:left knee synovitisPost-procedure diagnosis: same as pre procedure dxProcedures performed:left knee arthroscopy with extensive synovectomyPrimary Surgeon:Jovitaistant(s): noneFindings:moderate synovitisComplications: noneEstimated blood loss in ml's: noneSpecimens removed/altered: none at 0927 RPT #:[id number] OF REPORT OPOperative cthrbw4601-15-03R02:20:00Y.YMQB19311316-5792OMLet ilable for patient cdogGHIFBNWMNJFCBQ4575-19-01D08:27:31 [facility] 2022-08-23 15:32:00 [id number] +v4idb6kpHbmRErt5BrhBubGACHoR QntpqtbtkgBcS8Q2K3ml1C5BqvQ5398-53-22W08:32:84251 3-0083 [facility] [place] [address] PATIENT NAME: ANTHONY FONG ADMIT DATE: ACCOUNT NO: [id number] ROOM NO: AGE: 86 REPORT TYPE: HISTORY [...] MEDICAL HISTORY: Hypertension, hypercholesterolemia. PAST SURGICAL HISTORY: Left total knee arthroplasty as stated above in [...] of flexion going fromextension to flexion or flexion to extension. Range of motion is between 10 jgf309 degrees. Bogginess with no effusion. Healed midline scar. ASSESSMENT: Left knee synovitis, status post total knee arthroplasty. PLAN: Left knee arthroscopy with extensive debridement and any associatedprocedures. Risks and benefits have been detailed to the patient including allrehab and recovery time. The patient understands and is ready to proceed. Dictated By: Lynda Truong PA-C for Vincent Benitez MD Date Dictated: 08/23/2022 15:32:31Date Transcribed: 08/23/2022 18:05:24KENYA/SILAS/MARIAN/Fuentes #: [id number] ID: [id number] by Lynda Truong PA-C On 08/24/2022 08:03:13 AMAuthenticated and Edited by Vincent Benitez MD On 08/24/22 3:31:51 PM at 0341 at 0803 PATIENT NAME: ANTHONY FONG and physical pxjdoeneqqz0646-39-11Z49:05:00Y.UVB53634198-2058K VAvailable for patient zybeUHUOXLFLOQVTKC2985-34-62K41:42:05 [facility] 2022-02-25 10:17:00 [id number]+oe J+fKREZ+JOTwpCxLlHJB/Qlpilyil L3UKU2NSG3JE/r8TDGUTUaYbPoe3296-03-28P50:17:00 [facility] ([facility])Discharge SummaryREPORT#:[id number] REPORT STATUS: SignedDATE:02/25/22 TIME: 101 PATIENT: ANTHONY FONG [place] UNIT #: [id number]#: [id number] [facility] AGE: 86 SEX: M ATTEND: Arely Trevino MDADM AUTHOR: Arely Trevino MD * ALL edits or amendments must be made on the electronic/computer document * General InformationDischarge date: 02/25/22Admission diagnosis:left knee OADischarge diagnosis:sameHospital course:Discharge Diagnosis: Left Knee Degenerative Disease Procedure: Left Knee Arthroplasty Hospital Course and Findings The patient underwent the procedure without incident. Findings were significantfor degenerative disease of the knee. The patient was hemodynamically and medically monitored during the postoperative period. Anticoagulation was instituted for postoperative DVT prophylaxis. The patient was progressively able to tolerate PO [...] Disposition: Discharged to home Discharge Condition: Stable Instructions: Instruction sheet given to patient Activity: Ambulate with assistance, with weight-bearing as instructed in the hospital. Diet: As per preoperatively Prescriptions 1. Pain Medications: As per discharge prescription, with progressive weaning as pain decreases 2. Anticoagulation: As per discharge prescription, or PreOp anticoagulant, as discussed with patient3. Physical Therapy: Will undergo PT for gait training, mobilization, rqowj-hr-gqnxlu, and strengthening. Patient was informed to that they need to arrange for therapy asquickly as possible. The importance of early advancement of gkocv-cx-ltdcbb withhome exercises, and physical therapy was stressed [...] ORAL DAILY. hydrALAZINE (APRESOLINE) 50 MG TAB 50 MILLIGRAM ORAL TWICE DAILY. LORazepam (ATIVAN) 0.5 MG TAB 0.5 MILLIGRAM ORAL AT BEDTIME NEEDED. as needed for ANXIETY Discharge Instructions PCP)( Discharge to: Home/Self Care Discharge InstructionsAdditional Discharge Routines: Attending Follow-Up)( Diet: Resume Home Diet/Feeds Follow-up AppointmentsAttending Physician: Attending Physician: Arely Trevino MD Attending physician follow up timeframe: In 2-3 weeks Special instructions:call office for appointment at 1018 RPT #:[id number] OF REPORT DSDischarge frzuojy6456-49-44X58:17:00Y.UBQW34996946-9112BQEl ailable for patient azgnJZFKRYVZNFSMCJ3815-98-81L91:18:47 [facility] 2022-02-25 10:14:00 [id number]+ORA 7zuwj5tQxywWeOgi1z9pTLl2qODDS 1QKwB6EZnciJ083VQjK+tpsbz5K2541-09-70D29:14:00 [facility] ([facility])Orthopaedic Progress NoteREPORT#:[id number] REPORT STATUS: SignedDATE:02/25/22 TIME: 1014 PATIENT: ANTHONY FONG UNIT #: [id number]#: [id number] [facility] AGE: 86 SEX: M ATTEND: Arely Trevino AUTHOR: Arely Trevino MD * ALL edits or amendments must be made on the electronic/computer document * SubjectiveComments:Procedure: L TKADOS: 02/24/22 Subjective: Patinet is doing well and pain is controlled. Physical Exam: NAD, EUUi6Cjxwsjda site: C/D/IOperative Extremity: dressing c/d/i in place and without concernNeuro: SILT Sa/Aponte/Sp/Dp Motor: Intact DF/PFWWP Assessment: 86 year old male doing well following surgeryPlan: - Pain control- Appreciate IM recommendations- PT: WBAT- Despite originally planned for 2 night s stay, the patient did exceed expectations and was able to be discharged on POD 1.- Possible discharge pending clearance at 1015 RPT #:[id number] OF REPORT PRProgress atoy6495-48-13R16:14:00Y.MNNC42958022-1707SDJsult able for patient mhmtCMBLEHVNHQZOBB2074-96-76L29:16:17 [facility] 2022-02-25 08:43:00 [id number] QNROjGj0Ir82JsfyZJWjzHvdJFsBR irmdMekka3A7NEJ3ZD+q6dd60CT7087-43-21C37:43:00 [facility] ([facility])Clinical NoteREPORT#:[id number] REPORT STATUS: SignedDATE:02/25/22 TIME: 0843 PATIENT: ANTHONY FONG [place] UNIT #: [id number]#: [id number] [facility] [birth year] AGE: 86 SEX: M ATTEND: Arely Trevino MDADM AUTHOR: Ant Hickman MD * ALL edits or amendments must be made on the electronic/computer document * Clinical NoteNote:[facility] Ant Tobias M.D. (cell text [phone]) Assessment/Plan1.) Anemia of acute blood loss- .Hgb [...] his BP.4.) OsteoArthritis Hyperlipidemia Hypothyroid- .continue on Rx.* OK for DISCHARGE per [...] Nasal 3 cannula 02/24 1423 97.0 77 18 193/89 123.7 96 Nasal cannula 02/24 1318 95.5 60 18 163/66 98.1 98 02/24 1255 98.0 66 16 169/72 100 Nasal 2 cannula 02/24 1240 46 17 163/72 100 Nasal 2 cannula 02/24 1225 Nasal 2 cannula / 1225 50 19 130/59 100 Nasal 2 cannula / 1207 97.8 58 20 129/93 100 Nasal 2 cannula / 0944 65 28 166/73 100 Simple 6 [...] +ankle DF/PF Other: Labs/X-ray: Laboratory Tests: 02/25 0310 Hematology Hgb (12 - 16 g/dL) 11.5 L Hct (37 - 47 %) 34.2 L Ant Tobias M.D. at [address] [facility] #:[id number] OF REPORT CLClinical fbsl6290-31-36N87:43:00Y.ZLLW02512294-8103VVHypfs able for patient ugjtDAMCGVFQFWWATE2769-31-77L37:27:29 [facility] 2022-02-24 18:30:00 [id number] 2mWOA3TOmH+zLeeIxM1KH+nLpfdqV MzOE8ql08Trp7Lzt0tPbWk4ZKDD8084-56-90L62:30:00 [facility] ([facility])Clinical NoteREPORT#:[id number] REPORT STATUS: SignedDATE:02/24/22 TIME: 1829 PATIENT: ANTHONY FONG [place] UNIT #: [id number]#: [id number] [facility] [birth year] AGE: 86 SEX: M ATTEND: Arely Trevino [facility] AUTHOR: Ant Hickman MD * ALL edits or amendments must be made on the electronic/computer document * Clinical NoteNote:[facility] Ant Tobias MD(cell text [phone])Internal Medicine Consult at request of : Dr. Arely Trevino Chief Complaint: [...] (Coded, Severe, ANAPHYLAXIS, 02/09/22)pregabalin (From LYRICA) (Coded, Severe, TINGLING OF HEAD/NECK, 02/09/22) Home Medications: Home Medications:FEBUXOSTAT (ULORIC) 80 MG PO DAILY THYROID,PORK (ARMOUR THYROID) 90 MG PO DAILY cloNIDine 0.1 MG PO DAILY hydrALAZINE (APRESOLINE) 50 MG PO BID LORazepam (ATIVAN) 0.5 MG PO BEDTIME PRN PRN ANXIETY CHOLECALCIFEROL (VITAMIN D3) (VITAMIN D3) 1,000 UNITS PO DAILY SgHx: . Right TKA SHx: Tob: none FHx: .No significant hx of DVT/PE.Alcohol: none Drugs: none Lives: with ..Vitals:Vital Signs: Date Time Temp Pulse Resp B/P B/P Pulse O2 O2 Flow FiO2 Mean Ox Delivery Rate 02/24 1555 96.8 73 18 196/82 119.6 96 Nasal cannula 02/24 1555 96.8 73 18 196/82 119.6 96 Nasal cannula 02/24 1500 97 Nasal 1 cannula 02/24 1423 Nasal 3 cannula 02/24 1423 97.0 77 18 193/89 123.7 96 Nasal cannula 02/24 1318 95.5 60 18 163/66 98.1 98 02/24 1255 98.0 66 16 169/72 100 Nasal 2 cannula 02/24 1240 46 17 163/72 100 Nasal 2 cannula 02/24 1225 Nasal 2 cannula 02/24 1225 50 19 130/59 100 Nasal 2 [...] +Ankle DF/PF..Preop Labs (02/09/2022): CBC:. Hgb 13, Plt 272, CHEM: Na 136, K 4.3, Cr 1.25 (eGFR 55.4%), . Ekg: Sinus Bradycardia at 47 BPM .(medium to high risk of complications or morbidity) (major surgery) [...] normal parameters and a f/u plan is apocoktxqyK4185 - Patient screened for tobacco use AND identified as a tobacco non-qkfw3512H - ACP discussion - default code status while at [facility]. at 2335 RPT #:[id number] OF REPORT CLClinical hzpp2140-02-11I22:30:00Y.BDSI52176634-5626LCIrydz able for patient unnrNXCTBVXAWGIYLQ7197-00-45Q03:35:40 [facility]22-[facility] 11:48:00 [id number] /aNT1d0GHqWn2jn4qWDHFSjhxYuBY bW2Sp9Jeu+Q5vbPpNJ8Vij2ttuT4226-68-63E80:48:00 [facility] ([facility])Operative Note - FullREPORT#:[id number] REPORT STATUS: SignedDATE:02/24/22 TIME: 1148 PATIENT: ANTHONY FONG [place] UNIT #: [id number]#: [id number] ROOM/BED: 99814DOB: [birth year] AGE: 86 SEX: M ATTEND: Arely Trevino AUTHOR: Arely Trevino MD * ALL edits or amendments must be made on the electronic/computer document * Operative ReportStart date: 02/24/22Start time: 1030Pre-procedure diagnosis:Left Knee OsteoarthritisPost-procedure diagnosis:Left Knee OsteoarthritisProcedures performed:Left Total Knee ArthroplastyTechnique/Procedure:Midline medial parapatellarPrimary Surgeon: JUAN Trevinossistant(s): KYLE Watkinsnesthesia: regional anesthesia, spinal anestheticOperative findings:Significant degeneration throughout the knee. Stable knee following arthroplastyComplications: noneEstimated blood loss in ml's: 25Specimens removed/altered: noneImplant(s): Depuy Sigma Femur Size 4 Tibia Size 4, Liner 10, Patella 38Tourniquet:49 minutes at 225mmhg Free Text Op NotesFree Text Op Notes:assistant art director: The skilled assistance of the anesthesiologist assistant surgeon was necessary during this reconstructive procedure. They assisted with every aspect of the operation including, but [...] possible without the help of a skilled anesthesiologist assistant familiar with the procedure and capable of safely performing the aforementioned tasks. I am not a part of a teaching program, and thus, no surgical residents or interns were available to assist. Indication: The patient presented to me with a longstanding history of knee degenerative joint disease. Despite nonoperative treatment, it has progressed to the point where it has been severely debilitating. After careful discussion of the risks and benefits of the surgery, including the potential complications of deep venous thrombosis, infection, nerve or blood vessel injury, ligament injury, fracture, and incomplete resolution of pain, the patient wished to proceed with a total knee replacement. Procedure: Prophylactic antibiotics were administered 30 minutes prior to surgery. The correct surgical site was identified and signed. The patient was brought to theOperating Room and placed on the operating table. A time-out procedure was performed by all members of the surgical team, and correct side and procedure were verified. The tourniquet was applied. After induction of anesthesia, the operative lower extremity was prepped and draped in the usual sterile manner. The knee was then flexed and exsanguinated. Antibiotics and tranexamic acid was administered. The tourniquet was inflated. Using a scalpel, the skin was incised approximately 1 cm above the proximal poleof the patella and extended to the level of the tibial tubercle. The dissection was carried down to the extensor mechanism. A medial parapatellar arthrotomy wasperformed. An appropriate medial release was continued around the posteromedial aspect of the tibia and the deep insertion of the medial collateral ligament wasdissected free. The infra-patellar fat pad was excised. The patella was subluxedbut not everted and retracted laterally and the knee flexed to 90 degrees. The ACL was transected. An intramedullary drill hole was made and an intramedullary alignment guide was passed into the distal femur. Distal femoralresection was then performed at 5 degrees of anatomic valgus. The minimal amountof distal femoral resection was performed in order to allow for full extension of the knee. The extramedullary tibial resection guide was fixed to the tibia with pins and the appropriate resection of the proximal portion was made to accommodate for flexion and extension. The cut alignment was checked with an alignment guide andblock. The extension space was checked with a block and was found to be symmetric and stable. The appropriately sized anterior-posterior cutting block was placed on the distal femur in a degree of external rotation that balanced the flexion space and prevented anterior notching, and was perpendicular to Charmaine s line. The epicondylar axis was also assessed. The cutting block and resected bone were removed. Care was taken to protect the medial collateral ligament. At this point the knee was flexed, and a thin bent Hohmann retractor was placed laterally. Laminar spreaders were placed medially and laterally sequentially to expose and assess the flexion space. The medial and lateral menisci, and posterior condylar osteophytes were excised. Flexion/extension gaps were assessed and found to be symmetric and stable. The box cutting [...] thumbs technique. All trial components were removed. The trabecularsurfaces were pulse lavaged and dried. The [...] into extension. At this point, the real three-peg patellar prosthesis was cemented into place and excess cement removed. Following this, the knee was irrigated with dilute betadine. The tourniquet was deflated. Hemostasis was achieved with electrocautery. The knee was thoroughly irrigated with pulse lavage. A deep periarticular and superficial injection was used to infuse the periarticular soft tissue. The medial parapatellar arthrotomy was repaired with interrupted #1 vicryl and a running barbed suture and the subcutaneous tissue repaired with interrupted 0 and 2-0 Vicryl sutures. A 3-0 monocryl subcuticular stitch was placed. The skin was closed with adhesive. A sterile compressive dressing was applied. The patient was transferred to the recovery room in satisfactory condition. Sponge and instrument counts were correct. Prophylactic antibiotics will be discontinued within 24 hours. I was present for all portions of the procedure. Post-operative Plan:The patient be allowed to weight-bear as tolerated. They will receive perioperative antibiotics and be started on DVT prophylaxis. An x-ray will be performed in the recovery room. at [address] [facility] #:[id number] OF REPORT OPOperative gwcdqy6538-40-83O55:48:00Y.UEKA60242776-5480AHLqa ilable for patient rmzuLXTNCXCQFYBDJQ0592-13-57X26:50:58 [facility] 2022-02-09 16:33:00 [id number]/I MfD0v5L2fMGjfIQOJDTA2F1jxrQxN A+NuLkxx9bD7jj2e7je+26sGlRL8193-10-68Q71:33:71288 [address] [place] [address] PATIENT NAME: ANTHONY FONG ADMIT DATE: ACCOUNT NO: [id number] ROOM NO: AGE: 86 REPORT TYPE: ELECTROCARDIOGRAM SEX: M ADMITTING PHYSICIAN:Arely Trevino MD ATTENDING PHYSICIAN:Arely Trevino MD Order:[id number] Reason : PREOP CLEARANCE HTN Test Date/Time Stamp:MonFeb 09 2022 16:33:09Blood Pressure : / mmHGVent. Rate : 047 BPM Atrial Rate : 047 BPM P-R Int : 242 ms QRS Dur : 108 ms QT Int : 492 ms P-R-T Axes : 086 031 082 degrees QTc Int : 435 ms Marked sinus bradycardia with 1st degree AV block with premature atrialcomplexesAbnormal ECGNo previous ECGs availableConfirmed by REGULO ZAVALA MD ([id number]) on 02/10/2022 11:04:07 AM Referred By: Arely Trevino Confirmed by:RGEULO ZAVALA MD PATIENT NAME: ANTHONY FONG .[id number] AVAvailable for patient krdaSJUSOHCGETOVLL7198-50-03A27:04:30 [facility]
[2023-04-10] MEDS ORDERED: ACETAMINOPHEN 325 MG TABLET PO PRN (12:49)
[2023-04-10] MEDS ORDERED: LOPERAMIDE HCL 2 MG CAPSULE PO PRN (12:51)
[2023-04-10] MEDS ORDERED: DIPHENHYDRAMINE 25 MG TAB/CAP PO PRN (12:51)
[2023-04-10] MEDS ORDERED: ONDANSETRON 4 MG/2 ML VIAL IV PRN (12:52)
[2023-04-10] MEDS ORDERED: POLYETHYL GLY 3350 17 GM/DOSE PO PRN (12:52)
[2023-04-10] MEDS ORDERED: cloNIDine HCL 0.1 MG TAB PO PRN (12:55)
[2023-04-10] MEDS ORDERED: NACHLORIDE 0.45% 1,000 ML IV SCH (13:00)
[2023-04-10 13:10] LABS: Absolute Lymphocytes (CBC) 1.7 K/uL (0.7-4.9); Hematocrit 40.9 % (39.6-49.0); Lymphocytes % 22.7 % (15.3-44.8); MCV 90.2 fL (80-100); MPV 7.5 fL (7.6-11.3); Platelets 304 thou/uL (152-406); RBC Red Blood Cell Count 4.54 M/uL (4.33-5.43)
[2023-04-10 13:24] LABS: Protime INR 1.01
[2023-04-10 13:52] LABS: Bilirubin Direct 0.1 mg/dL (0-0.2); Bilirubin Indirect, Calculated 0.2 mg/dL (0.2-0.8); Bilirubin Total 0.3 mg/dL (0.2-1.0); Phosphorus 2.7 mg/dL (2.5-4.9); Potassium 3.5 mEq/L (3.5-5.1); Protein, Total 7.3 g/dL (6.4-8.2)
[2023-04-10 13:53] LABS: Thyroid Stimulating Hormone 1.53 uIU/mL (0.358-3.740)
[2023-04-10] MEDS ORDERED: Levofloxacin500mg IV 500 MG/100 ML BAG IV SCH (14:00)
[2023-04-10] MEDS: IPRATROPIUM BROM 0.5MG/2.5ML NEB SCH ×2 (15:02→20:00)
[2023-04-10] MEDS: LEVALBUTEROL 1.25 MG/3 ML NEB NEB SCH ×2 (15:02→20:00)
[2023-04-10] MEDS: ENOXAPARIN 40 MG/0.4 ML SQ SCH (15:10)
[2023-04-10 15:19] VITALS: BMI 29.0
--- NOTE | 2023-04-10 15:20 | RAD REPORT ---
EXAM DESCRIPTION: CT - Chest Angio - 04/10/2023 2:06 pm CLINICAL HISTORY: pneumonia COMPARISON: Chest Pa And Lat (2 Views) dated 04/10/2023 TECHNIQUE: Thin axial CT images of the chest were obtained following administration of 100 mL Isovue 370 IV contrast. Multiplanar reconstructions, and maximum intensity projection reconstructions were generated and reviewed. Exam utilizes a protocol for optimal evaluation of pulmonary arterial tree. All CT scans are performed using dose optimization technique as appropriate and may include automated exposure control or mA/KV adjustment according to patient size. FINDINGS: Pulmonary arteries are normal. No emboli or other suspicious finding. No acute or signific ant aorta findings. No mass or infiltrate in the lung parenchyma. No pleural thickening or pleural effusion. No pneumotho rax. No abnormal mediastinal or hilar masses or lymphadenopathy seen. No chest wall mass or abnormal axill iary lymphadenopathy. Incidentally noted small hepatic hypoattenuating lesions suggesting cysts, largest measuring 1.4 cm i n the left liver lobe. IMPRESSION: No evidence of acute central pulmonary emboli. No other acute intrathoracic process.
[2023-04-10 15:29] LABS: SARS-CoV-2 Antigen Rapid Res Negative (Negative)
--- NOTE | 2023-04-10 16:18 | RAD REPORT ---
EXAM DESCRIPTION: RAD - Chest Pa And Lat (2 Views) - 04/10/2023 1:50 pm CLINICAL HISTORY: pneumonia COMPARISON: Chest Single View dated 02/05/2023; Chest Single View dated 09/07/2019; Chest Single View dated 09/06/2019; Chest Pa And Lat (2 Views) dated 05/29/2019; Chest Angio dated 04/10/2023 TECHNIQUE: PA and lateral views of the chest were obtained. FINDINGS: The lungs are clear. Heart size is normal and central vasculature is within normal limits. No pleural effusion or pneumothorax seen. No acute bony finding noted. IMPRESSION: No acute cardiopulmonary process.
[2023-04-10 17:27] LABS: Specific Gravity > 1.030 (1.005-1.030); Urine Bacteria <20 /HPF (<20); Urine Bilirubin NEGATIVE (Negative); Urine Blood Negative (Negative); Urine Clarity Clear (Clear); Urine Color Colorless (Yellow); Urine Glucose NEGATIVE (Negative); Urine Protein 2+ (Negative); Urine RBC <5 /HPF (None Seen); Urine Urobilinogen Normal (Normal); Urine pH 6.5 (5.0-7.0)
[2023-04-10 18:24] LABS: UR MICROALBUMIN 91.9 mg/dL (< 1.9)
[2023-04-10] MEDS: HYDRALAZINE HCL 25 MG TABLET PO SCH (20:52)
[2023-04-10] MEDS ORDERED: GABAPENTIN 100 MG CAP PO SCH (21:00)
[2023-04-10] MEDS ORDERED: FEBUXOSTAT 80 MG PO SCH (21:00)
[2023-04-10 23:03] VITALS: O2SAT 98
[2023-04-11] MEDS: LEVALBUTEROL 1.25 MG/3 ML NEB NEB SCH ×2 (01:39→07:45)
[2023-04-11] MEDS: IPRATROPIUM BROM 0.5MG/2.5ML NEB SCH ×2 (01:40→07:45)
[2023-04-11] MEDS ORDERED: THYROID 30 MG TAB PO SCH (06:00)
[2023-04-11] MEDS ORDERED: DILTIAZEM HCL 120 MG SR CAP PO SCH (09:00)
[2023-04-11] MEDS ORDERED: DILTIAZEM HCL 120 MG PO SCH (09:00)
[2023-04-11] MEDS ORDERED: HOME MED 1 EA UNK (Escitalopram Oxalate [Escitalopram Oxalate] 10 MG Tablet) PO SCH (09:00)
[2023-04-11] MEDS: ENOXAPARIN 40 MG/0.4 ML SQ SCH (09:00)
[2023-04-11] MEDS ORDERED: FOLIC ACID 1 MG TABLET PO SCH (09:00)
[2023-04-11] MEDS ORDERED: CLOPIDOGREL 75 MG TABLET PO SCH (09:00)
[2023-04-11] MEDS ORDERED: ESCITALOPRAM 20 MG TAB PO SCH (09:00)
[2023-04-11 09:22] VITALS: BP 140/62; TEMP 98.7
[2023-04-11] MEDS: HYDRALAZINE HCL 25 MG TABLET PO SCH (10:21)
--- NOTE | 2023-04-11 20:56 | P.DS ---
Admission Date: 04/10/23 Discharge Date: 04/11/23 Disposition: ROUTINE DISCHARGE Discharge Condition: [facility]IR Hospital Course: ANTHONY IS STABLE. NOT MUCH DYSPNEIC ANY LONGER. CXR AND CT SHOW NO PNEUMONIA BRONCHITIS IS CLEARING WELL DC HOME WITH ABX. Vital Signs/Physical Exam: Temp Pulse Resp BP Pulse Ox 98.7 F 52 16 140/62 100 04/11/23 08:00 04/11/23 10:21 04/11/23 08:00 04/11/23 10:21 04/11/23 08:00 Laboratory Data at Discharge: WBC 7.30 thou/uL (4.3-10.9) 04/10/23 12:57 Hgb 13.9 g/dL (13.6-17.9) 04/10/23 12:57 Hct 40.9 % (39.6-49.0) 04/10/23 12:57 Plt Count 304 thou/uL (152-406) 04/10/23 12:57 PT 11.1 SECONDS (9.5-12.5) 04/10/23 12:57 INR 1.01 04/10/23 12:57 APTT 30.0 SECONDS (24.3-36.9) 04/10/23 12:57 Sodium 138 mEq/L (136-145) 04/10/23 12:57 Potassium 3.5 mEq/L (3.5-5.1) 04/10/23 12:57 BUN 14 mg/dL (7-18) 04/10/23 12:57 Creatinine 1.14 mg/dL (0.70-1.30) 04/10/23 12:57 Glucose 132 mg/dL (74-106) H 04/10/23 12:57 Phosphorus 2.7 mg/dL (2.5-4.9) 04/10/23 12:57 Magnesium 2.0 mg/dL (1.6-2.4) 04/10/23 12:57 Total Bilirubin 0.3 mg/dL (0.2-1.0) 04/10/23 12:57 AST 16 U/L (15-37) 04/10/23 12:57 ALT 17 U/L (16-61) 04/10/23 12:57 Alkaline Phosphatase 81 U/L (45-117) 04/10/23 12:57 Home Medications: Febuxostat [Uloric] 80 mg PO BEDTIME 07/10/15 Thyroid Tab [[place] Thyroid*] 90 mg PO [id number] 07/10/15 Hydralazine HCl 50 mg PO BID 04/14/17 Gabapentin [Neurontin*] 200 mg PO BEDTIME 02/05/23 Clopidogrel Bisulfate [Plavix*] 75 mg PO DAILY 30 Days #30 tab 02/06/23 Folic Acid 1 mg PO DAILY 30 Days #30 tab 02/06/23 Diltiazem HCl [Cardizem] 240 mg PO DAILY 04/10/23 Escitalopram Oxalate 10 mg PO DAILY 04/10/23 levoFLOXacin [Levaquin*] 500 mg PO DAILY #7 tab 04/11/23 New Medications: levoFLOXacin [Levaquin*] 500 mg PO DAILY #7 tab Followup: Myles Sanches MD [ACTIVE - CAN ADMIT] - 1-2 Weeks
== END 2023-04-11 10:50 | disposition home or self-care (01) ==
LOC: 2ND 11:59
PROVIDERS: ADMIT Internal Medicine; ATTEND Internal Medicine
DX: J40 Bronchitis, not specified as acute or chronic (principal)
CPT/HCPCS: 93005; 85025; 81001; 80048; 36415; 83735; 84100; 85610; 80076; 85730; 82652; 84443; 83036; 82570; 82607; 82043; 71275; 71046; 94640; 87811; Q9967; J7614 ×3; J7644 ×4; J1650; G0378; G0379